=== PATIENT | male | born 1950 ===

== ENCOUNTER 2016-12-16 11:17 | Outpatient (CLI) | payer MEDICARE | END 2016-12-16 11:18 | disposition home or self-care (01) | DX: G47.33 Obstructive sleep apnea (adult) (pediatric) (principal) | CPT/HCPCS: 99203; G0463 ==

== ENCOUNTER 2017-12-01 10:49 | Outpatient (CLI) | payer MEDICARE | END 2017-12-01 10:50 | disposition home or self-care (01) | LOC: SC 10:49 | PROVIDERS: ATTEND Nurse Practitioner Family | DX: G47.33 Obstructive sleep apnea (adult) (pediatric) (principal) | CPT/HCPCS: 99213; G0463; 99212 ==

== ENCOUNTER 2018-05-17 22:20 | Inpatient (IN) | payer MEDICARE ==
[2018-05-17] MEDS ORDERED: SODIUM CHLORIDE 0.9% 1,000 ML IV ONE (22:26)
[2018-05-17] MEDS ORDERED: ONDANSETRON 4 MG/2 ML VIAL IVP STA (22:26)
[2018-05-17] MEDS ORDERED: MORPHINE 10 MG/ML VIAL IVP STA (22:35)
[2018-05-17] MEDS ORDERED: ACETAMINOPHEN 1,000 MG/100 ML 100 ML IV STA (22:35)
--- NOTE | 2018-05-17 22:35 | ED Physician Documentation ---
PD HPI ABD PAIN - Stated complaint Stated Complaint: RT ABDOMINAL PX - Chief complaint Chief Complaint: Abd Pain - History obtained from History obtained from: Patient - History of Present Illness Timing - onset: Other (Just prior to arrival) Timing - details: Abrupt onset Severity Comments: Severe Quality: Cramping, Sharp Location: RUQ Radiation: Right shoulder. No: Chest, , Lower back, Left flank, Left shoulder Improved by: No: Eating, Laying still, Vomiting, BM, Position Worsened by: No: Eating, Moving, Breathing, Position Associated symptoms: Nausea. No: Fever Similar symptoms before: Other (The patient has a history of an obstructed gallstone which required sphincterotomy and the pain he is experiencing today is similar to that episode.) Recently seen: Not recently seen PD PAST MEDICAL HISTORY - Present Medications Home Medications: Ambulatory Orders Medication Instructions Recorded Confirmed Citalopram [CeleXA] 40 mg PO DAILY 05/17/18 05/17/18 Omeprazole [PriLOSEC] 20 mg PO DAILY 05/17/18 05/17/18 traZODone [Desyrel] 100 mg PO DAILY PM 05/17/18 05/17/18 - Allergies Allergies/Adverse Reactions: Allergies Allergy/AdvReac Type Severity Reaction Status Date / Time No Known Drug Allergies Allergy Verified 05/17/18 22:28 PD ED PE NORMAL - General General: Alert and oriented X 3, No acute distress - HEENT HEENT: Atraumatic, PERRL, EOMI, Ears normal, Moist mucous membranes - Cardiac Cardiac: RRR, Strong equal pulses - Respiratory Respiratory: No respiratory distress, Clear bilaterally - Abdomen Abdomen: Soft, Non distended. No: Non tender (The patient has right upper quadrant tenderness, no rebound or peritoneal signs) - Back Back: No CVA TTP - Derm Derm: Normal color - Extremities Extremities: No deformity, No edema - Neuro Neuro: Alert and oriented X 3, Normal speech - Psych Psych: Normal affect Results - Vitals Vitals: Vital Signs - 24 hr 05/17/18 05/17/18 22:24 23:46 Temperature 37 C Heart Rate 76 77 Respiratory 20 18 Rate Blood Pressure 150/84 H 121/70 O2 Saturation 97 98 Oxygen O2 Source Room air - Labs Labs: Laboratory Tests 05/17/18 05/17/18 05/17/18 22:30 22:30 23:08 WBC 8.6 RBC 4.30 L Hgb 15.0 Hct 41.6 L MCV 96.8 H MCH 34.9 H MCHC 36.1 H RDW 13.0 Plt Count 169 MPV 6.9 L Neut # (Auto) 6.3 Lymph # (Auto) 1.4 L Kidder # (Auto) 0.8 Eos # (Auto) 0.2 Baso # (Auto) 0.0 Absolute Nucleated RBC 0.00 Nucleated RBC % 0.0 Sodium 137 Potassium 4.0 Chloride 103 Carbon Dioxide 24 Anion Gap 10.0 BUN 11 Creatinine 0.9 Estimated GFR (MDRD) 83 L Glucose 135 H Calcium 9.7 Total Bilirubin 0.9 AST 19 ALT 17 Alkaline Phosphatase 78 Total Protein 7.7 Albumin 4.6 Globulin 3.1 Albumin/Globulin Ratio 1.5 Lipase 38 Urine Color YELLOW Urine Clarity CLEAR Urine pH 6.0 Ur Specific Lovely 1.025 Urine Protein NEGATIVE Urine Glucose (UA) NEGATIVE Urine Ketones NEGATIVE Urine Occult Blood MODERATE H Urine Nitrite NEGATIVE Urine Bilirubin NEGATIVE Urine Urobilinogen 0.2 (NORMAL) Ur Leukocyte Esterase NEGATIVE Urine RBC 0-5 Urine WBC 0-3 Ur Squamous Epith Cells NONE SEEN Urine Bacteria None Seen Ur Microscopic Review INDICATED Urine Culture Comments NOT INDICATED - Rads (name of study) CT abd/pelvis Radiology: Final report received (IMPRESSION: 1. Distended gallbladder with possible inflammatory changes. No calcified gallstones are seen but cholecystitis is not excluded. 2. Pneumobilia which could reflect prior intervention such as sphincterotomy. 3. Fatty liver. 4. Appendix appears normal. ) PD MEDICAL DECISION MAKING - ED course ED course: The case is discussed with the on-call general surgeon Dr. Gooden, the patient's clinical presentation, past history and CT findings were discussed. He agrees this sounds like acute cholecystitis and recommends admission to the hospital. The case was discussed with the hospitalist Dr. Pennington who accepts the patient onto her service. The findings and plan were discussed with the patient understands and agrees to plan - Sepsis Event Vital Signs: Vital Signs - 24 hr 05/17/18 05/17/18 22:24 23:46 Temperature 37 C Heart Rate 76 77 Respiratory 20 18 Rate Blood Pressure 150/84 H 121/70 O2 Saturation 97 98 Oxygen O2 Source Room air Departure - Departure Disposition: ED Place in Observation Clinical Impression: Acute cholecystitis, Acute abdominal pain Condition: Fair
[2018-05-17 22:48] LABS: BASOPHILS % (AUTO) 0.5 %; EOSINOPHILS # (AUTO) 0.2 10^3/uL (0.0-0.7); EOSINOPHILS % (AUTO) 1.8 %; LYMPHOCYTES # (AUTO) 1.4 10^3/uL (1.5-3.5); MEAN CORPUSCULAR HEMOGLOBIN 34.9 pg (27.0-31.0); MEAN CORPUSCULAR HGB CONC 36.1 g/dL (32.0-36.0); MEAN CORPUSCULAR VOLUME 96.8 fL (80.0-94.0); MEAN PLATELET VOLUME 6.9 fL (7.4-11.4); MONOCYTES # (AUTO) 0.8 10^3/uL (0.0-1.0); MONOCYTES % (AUTO) 8.8 %; NEUTROPHILS # (AUTO) 6.3 10^3/uL (1.5-6.6); NEUTROPHILS % (AUTO) 72.9 %; PLT - PLATELET COUNT 169 10^3/uL (130-450); WHITE BLOOD COUNT 8.6 x10^3/uL (4.8-10.8)
[2018-05-17 22:59] LABS: ALBUMIN 4.6 g/dL (3.2-5.5); ALBUMIN/GLOBULIN RATIO 1.5 (1.0-2.2); BILIRUBIN,TOTAL 0.9 mg/dL (0.2-1.0); CALCIUM 9.7 mg/dL (8.5-10.3); CREATININE 0.9 mg/dL (0.6-1.2); TOTAL PROTEIN 7.7 g/dL (6.7-8.2)
[2018-05-17 23:14] LABS: BILIRUBIN,URINE NEGATIVE (NEGATIVE); GLUCOSE, URINE (UA) NEGATIVE (NEGATIVE); KETONES,URINE (UA) NEGATIVE (NEGATIVE); LEUKOCYTE ESTERASE, URINE NEGATIVE (NEGATIVE); NITRITE,URINE NEGATIVE (NEGATIVE); OCCULT BLOOD,URINE MODERATE (NEGATIVE); PROTEIN,URINE NEGATIVE (NEGATIVE); UROBILINOGEN,URINE 0.2 (NORMAL) E.U./dL (NORMAL)
[2018-05-17 23:26] LABS: CLARITY,URINE CLEAR (CLEAR); RBC,URINE 0-5 /HPF (0-5)
[2018-05-17 23:27] LABS: BACTERIA,URINE None Seen /HPF (None Seen); SQUAMOUS EPITHELIAL CELL,UR NONE SEEN (<= Few)
[2018-05-17] MEDS ORDERED: HYDROmorphone 1 MG/ML CARPUJECT IVP STA (23:38)
[2018-05-17] MEDS ORDERED: KETOROLAC 60 MG/2 ML VIAL IVP STA (23:47)
[2018-05-18] MEDS ORDERED: IOPAMIDOL-300 100 ML VIAL ONE (00:08)
[2018-05-18] MEDS ORDERED: IOPAMIDOL-300 100 ML VIAL IVP ONE (00:41)
--- NOTE | 2018-05-18 01:07 | CT Report ---
Reason: r sided abdominal pain Procedure Date: 05/18/2018 Accession Number: [id number] / [id number] Procedure: CT - Abdomen/Pelvis W/ CPT Code: FULL RESULT: EXAM: CT ABDOMEN AND PELVIS EXAM DATE: 05/18/2018 12:53 AM. CLINICAL HISTORY: R sided abdominal pain. COMPARISONS: None. TECHNIQUE: Routine helical CT imaging was performed through the abdomen and pelvis. IV contrast: ISOVUE 300 100mL. Enteric contrast: No. Reconstructions: Coronal and sagittal. In accordance with CT protocol optimization, one or more of the following dose reduction techniques were utilized for this exam: automated exposure control, adjustment of mA and/or KV based on patient size, or use of iterative reconstructive technique. FINDINGS: Lung Bases: No focal consolidation seen. Small hiatal hernia. Liver: Fatty infiltration. Gallbladder/Bile Ducts: Distended gallbladder with possible inflammatory changes. No calcified gallstones are seen. Pneumobilia is noted. Spleen: Normal. Pancreas: Normal. Adrenal Glands: Normal. Kidneys: Normal. No masses or hydronephrosis. Peritoneal Cavity/Bowel: No bowel obstruction seen. Colonic diverticula without evidence of diverticulitis. No free air or free fluid. Moderate stool in the right hemicolon. Umbilical hernia containing fat. No lymphadenopathy seen. Appendix appears normal. Pelvic Organs: Normal. The bladder and visualized pelvic organs are within normal limits. Vasculature: Mild atherosclerosis. No aortic aneurysm. Bones: Osteopenia. Grade 1 degenerative spondylolisthesis at L4-L5. Other: None. IMPRESSION: 1. Distended gallbladder with possible inflammatory changes. No calcified gallstones are seen but cholecystitis is not excluded. 2. Pneumobilia which could reflect prior intervention such as sphincterotomy. 3. Fatty liver. 4. Appendix appears normal. 5. Moderate stool in the right hemicolon. RADIA
[2018-05-18] MEDS ORDERED: PIPERACILLIN/TAZOBACTAM 4.5 GM in SODIUM CHLORIDE 0.9% MINIBAG 100 ML IV STA (01:16)
[2018-05-18] MEDS ORDERED: SODIUM CHLORIDE FLUSH 0.9% 10 ML SYRINGE IVP PRN ×2 (01:31→14:43)
[2018-05-18] MEDS ORDERED: ONDANSETRON 4 MG/2 ML VIAL IVP PRN (01:31)
[2018-05-18] MEDS ORDERED: PROCHLORPERAZINE 10 MG/2 ML VIAL IVP PRN (01:31)
--- NOTE | 2018-05-18 01:56 | HISTORY & PHYSICAL EXAMINATION ---
Chief Complaint - Chief Complaint Chief Complaint: right upper quadrant pain History of Present Illness - Admitted From Admitted From:: Home/ER - History Obtained From Records Reviewed: [facility] History obtained from: patient and Dr. Parekh Exam Limitations: none - History of Present Illness HPI Comment/Other: 68-year-old white male who has a previous history of common bile duct stone which required a sphincterotomy. He had his first episode of probable cholelithiasis pain in January 2013 when he presented to [facility] with an abrupt onset of waking up in 4 AM with pain underneath his right rib cage. But it also felt like someone grabbed his heart in the left lower pectoral area. He had 2 episodes of that. He was admitted as chest pain, rule out FL at that time. He then presented with 2 weeks of intermittent epigastric and right upper quadrant pain in March 2014. He was seen in [facility] emergency room April 18, 2014 and admitted with abnormal liver function studies and an ultras ound showing fluid-filled gallbladder. No stones. He had an MRCP which showed a stone in his distal common bile duct. He underwent an ERCP with sphincterotomy. There is no fever, no elevated white cell count. [facility] Unclear as to why he did not have a follow-up cholecystectomy. He does not ever remember them mentioning it. He was not told to follow-up to have his gallbladder taken out.Today, he had an abrupt onset of severe right upper quadrant pain. Colicky. Radiating to the right shoulder. Associated with some nausea and a little bit of swelling but no emesis. No change in bowel habits. There has been no change in the color of his stool. He denies chest pain, palpitations, left shoulder pain. He says the pain today is very similar to what he had before. In the emergency room he has had a CAT scan done which shows a small hiatal hernia, continued fatty infiltration of his liver, a distended gallbladder with possible inflammatory changes but no calcified stones. Pneumobilia is noted. Colonic diverticuli seen without evidence of diverticulitis. Moderate stool in the right hemicolon. An umbilical hernia containing fat without incarceration. Appendix appears normal. His liver function studies are normal. His white cell count is normal. He does not have a fever. The emergency room physician contacted general surgery. General surgery would like the patient admitted to our service. History - Past Medical History Cardiovascular: reports: Hypertension (At times with his screening exams. Systolic will go from 140-150.), High cholesterol Respiratory: reports: None, Sleep apnea (On CPAP) Neuro: reports: None Endocrine/Autoimmune: reports: None GI: reports: GERD, Hiatal hernia, Colon polyps (Adenoma on colonoscopy 2008), Cirrhosis (Fatty liver is seen on CAT scan March [address]), Cholelithiasis, Other (Internal hemorrhoids And diverticulosis on colonoscopy March 17, 2015. Periumbilical fat hernia seen on CT 2013 and today) : reports: Other (For prostate cancer had a radical prostatectomy approximately 2003. He has had 2 episodes of hematuria with rigors in the past.) HEENT: reports: Chronic vision loss Psych: reports: Depression (Since approximately 1984 for which she is dependent on trazodone and citalopram. He has been asked to come off of the trazodone but he feels like he cannot sleep without it.) Musculoskeletal: reports: Osteoarthritis Derm: reports: None MRSA Hx?: No Other Past Medical History: Sclerotic lesion right iliac wing, 1 cm, seen in CT March 2014 - Past Surgical History General: reports: Colonoscopy, EGD, Other - Family & Social History Family History Comment/Other: father at age 82, old age. Mother at age 90 high cholesterol and high blood pressure. 2 sisters are alive and well. 2 brothers alive and well with high cholesterol, high blood pressure and diabetes. One child healthy Living arrangement: At home Living Situation: With spouse/s.o. Social History Notes: From [place]. 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 Quit 25 years ago. He smoked 1 pack per day. He walks every day, 60-90 minutes a day. He is . Has no history of alcohol abuse and rarely drinks. 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 - Substance History Use: Uses substance without health or social issues: NONE Abuse: Recurrent use of substance despite neg consequences: NONE Dependence: Experiences withdrawal or developed tolerances: NONE - POLST Patient has POLST: Yes POLST Status: DNR Meds/Allgy - Home Medications Home Medications: Ambulatory Orders Medication Instructions Recorded Confirmed Citalopram [CeleXA] 40 mg PO DAILY 05/17/18 05/17/18 Omeprazole [PriLOSEC] 20 mg PO DAILY 05/17/18 05/17/18 traZODone [Desyrel] 100 mg PO DAILY PM 05/17/18 05/17/18 - Allergies Allergies/Adverse Reactions: Allergies Allergy/AdvReac Type Severity Reaction Status Date / Time No Known Drug Allergies Allergy Verified 05/17/18 22:28 Review of Systems - Constitutional Constitutional: denies: Fatigue, Fever, Chills, Malaise - Eyes Eyes: reports: Corrective lenses. denies: Pain, Irritation, Amaurosis, Blurred vision, Field loss, Vision loss - Ears, Nose & Throat Ears, Nose & Throat: denies: Ear pain, Hearing loss, Hearing aids, Nasal congestion, Postnasal drainage, Sore throat, Hoarseness - Cardiovascular Cariovascular: denies: Irregular heart rate, Palpitations, Chest pain, Edema, Lightheadedness, Syncope, Exertional dyspnea, Decr. exercise tolerance - Respiratory Respiratory: reports: Snoring, Apnea. denies: Cough, Sputum production, Wheezing, Hemoptysis, Orthopnea, SOB at rest, SOB with exertion, Stridor, Pleuritic pain, Other - Gastrointestinal Gastrointestinal: reports: Abdominal pain, Abdominal distention, Nausea, Reflux/heartburn. denies: Constipation, Diarrhea, Change in bowel habits, Rectal bleeding, Black stools, Bloody stools, Vomiting, Bile emesis, Riley blood emesis, Coffee grounds emesis - Genitourinary Genitourinary: denies: Dysuria, Frequency, Urgency, Hematuria, Incontinence - Musculoskeletal Musculoskeletal: reports: Back pain (Occasional mild lumbar pain unchanged for years), Stiffness (In his hands in the morning). denies: Muscle pain, Muscle aches, Muscle weakness, Gout - Integumentary Integumentary: denies: Rash, Pruritis, Lesions, Dryness - Neurological Neurological: denies: Focal weakness, Headache, Dizziness, Memory problems, Pre- existing deficit, Seizures - Psychiatric Psychiatric: reports: Depression. denies: Anxiety, Suicidal, Delusions, Hallucinations - Endocrine Endocrine: denies: Polyuria, Polydypsia, Polyphagia - Hematologic/Lymphatic Hematologic/Lymphatic: denies: Anemia, Bruising Exam - Vital Signs Reviewed Vital Signs: Yes Vital Signs: Vital Signs x48h Temp Pulse Resp BP Pulse Ox 05/17/18 23:46 77 18 121/70 98 05/17/18 22:24 37 C 76 20 150/84 H 97 - Physical Exam General Appearance: positive: Alert, Mild distress (With facial expressions showing grimacing of pain from right upper quadrant pain that comes and goes), Other (Asleep in the gurney in room 6 in the ER but awakens easily. No family at the bedside.) Eyes Bilateral: positive: PERRL, EOMI ENT: positive: Pharynx nml, No signs of dehydration Neck: positive: No JVD. negative: Stiff neck, Carotid bruit Respiratory: positive: Chest non-tender. negative: Wheezes, Rales, Rhonchi Cardiovascular: positive: Regular rate & rhythm. negative: Systolic murmur, Gallop/S4, Friction rub Peripheral Pulses: positive: 1+ Abdomen: positive: Other (Tender epigastrium and right upper quadrant. Mild guarding but no rebound. Quiet bowel sounds. No distention.) Skin: positive: No rash, Warm, Dry Extremities: positive: Non-tender, Full ROM Neurologic/Psychiatric: positive: Oriented x3, CN's nml (2-12), Motor nml, Sensation nml Conclusion/Plan - Problem List (1) Right upper quadrant abdominal pain Conclusion/Plan: Abrupt in onset, associated with the patient already has a previous history of a common bile duct stone, ERCP and sphincterotomy. This was in 2013. It is unclear why he did not have his gallbladder taken out then. He now returns with recurrent right upper quadrant pain. He does not have a fever, nor does have an elevated white cell count. CAT scan is suggestive of possible acute cholecystitis because of inflammation but no stones are seen. General surgery would like him admitted to our service and he will be seen in the morning. Plan: Place in observation General surgery consult to see patient in the morning N.p.o. status Morphine for pain management Monitor closely for fever. If that occurs he will be started on single agent antibiotic therapy for possible acute cholecystitis (2) Preoperative cardiovascular examination Conclusion/Plan: With his age and male sex he has up to a 12.5% risk of cardiac disease manifestation in the next 10 years. But nevertheless he does not have atrial fibrillation, FL in the last 6 months, valvular heart disease. His creatinine is less than 2. Although he has hyperglycemia he is not on insulin. He does not have a history of a TIA or stroke. No history of congestive heart failure. No history of ischemic heart disease. If he has surgery it would be considered a high risk intraperitoneal surgery. That leaves him with one-point on the revised cardiac index. Class II risk. 0.9% risk of major cardiac event. (3) Insomnia secondary to depression with anxiety Conclusion/Plan: Patient will be allowed his medications with sips of water. Otherwise to be n.p.o. (4) Hyperglycemia Conclusion/Plan: With his admission to [facility] in 2013 hyperglycemia was also noted during that visit. Glucose is 135 then as well. But he does not carry a formal diagnosis of diabetes mellitus. Plan: Check A1c (5) Obstructive sleep apnea on CPAP Conclusion/Plan: Asked to bring CPAP mask in from home - Lab Results Fish Bones: 05/17/18 22:30 05/17/18 22:30 - Diagnostic Imaging Results Diagnostic Imaging Results: positive: Final report reviewed Diagnostic Imaging Results Comments: CT ABDOMEN AND PELVIS EXAM DATE: 05/18/2018 12:53 AM. CLINICAL HISTORY: R sided abdominal pain. COMPARISONS: None. TECHNIQUE: Routine helical CT imaging was performed through the abdomen and pelvis. IV contrast: ISOVUE 300 100mL. Enteric contrast: No. Reconstructions: Coronal and sagittal. In accordance with CT protocol optimization, one or more of the following dose reduction techniques were utilized for this exam: automated exposure control, adjustment of mA and/or KV based on patient size, or use of iterative reconstructive technique. FINDINGS: Lung Bases: No focal consolidation seen. Small hiatal hernia. Liver: Fatty infiltration. Gallbladder/Bile Ducts: Distended gallbladder with possible inflammatory changes. No calcified gallstones are seen. Pneumobilia is noted. Spleen: Normal. Pancreas: Normal. Adrenal Glands: Normal. Kidneys: Normal. No masses or hydronephrosis. Peritoneal Cavity/Bowel: No bowel obstruction seen. Colonic diverticula without evidence of diverticulitis. No free air or free fluid. Moderate stool in the right hemicolon. Umbilical hernia containing fat. No lymphadenopathy seen. Appendix appears normal. Pelvic Organs: Normal. The bladder and visualized pelvic organs are within normal limits. Vasculature: Mild atherosclerosis. No aortic aneurysm. Bones: Osteopenia. Grade 1 degenerative spondylolisthesis at L4-L5. Other: None. IMPRESSION: 1. Distended gallbladder with possible inflammatory changes. No calcified gallstones are seen but cholecystitis is not excluded. 2. Pneumobilia which could reflect prior intervention such as sphincterotomy. 3. Fatty liver. 4. Appendix appears normal. 5. Moderate stool in the right hemicolon. Core Measures - Anticipated LOS I expect patient to be DC'd or transferred within 96 hours.: Yes - DVT/VTE - Prophylaxis VTE/DVT Device ordered at admit?: Yes
[2018-05-18] MEDS: SODIUM CHLORIDE FLUSH 0.9% 10 ML SYRINGE IVP SCH ×5 (03:14→23:50)
[2018-05-18] MEDS: SODIUM CHLORIDE 0.9% 1,000 ML IV SCH ×3 (03:14→19:39)
--- NOTE | 2018-05-18 04:23 | Ultrasound Report ---
Reason: abormal ct, ruq pain, hx of gallstoes Procedure Date: 05/18/2018 Accession Number: [id number] / [id number] Procedure: US - Abdomen Complete CPT Code: FULL RESULT: EXAM: ABDOMEN ULTRASOUND EXAM DATE: 05/18/2018 03:23 AM. CLINICAL HISTORY: Right sided pain. Abnormal gallbladder on CT. COMPARISON: CT, 05/18/2018. TECHNIQUE: Real-time scanning was performed with static images obtained. FINDINGS: Liver: Echogenic and heterogeneous. 14.9 cm. Main portal vein flow: Hepatopetal. Gallbladder: Sludge in the gallbladder. There is wall thickening at 6 mm. No definite gallstones are visualized. Gallbladder appears dilated. Biliary System: Common bile duct not well seen. Pancreas: Not well seen due to bowel gas. Kidneys: Right: 9.8 cm longitudinally. Normal. No contour-deforming mass, stones, or hydronephrosis. Left: 9.9 cm longitudinally. Normal. No contour-deforming mass, stones, or hydronephrosis. Spleen: 10.0 cm. Coarse echotexture. Aorta and Inferior Vena Cava: The visualized portions are unremarkable. Other: None. IMPRESSION: 1. Dilated gallbladder with sludge and wall thickening. 2. No shadowing gallstones are identified. No focal tenderness over the gallbladder. Findings are somewhat equivocal with regard to cholecystitis. 3. Fatty liver. 4. Common duct not well seen. RADIA
[2018-05-18] MEDS: HYDROmorphone 1 MG/ML CARPUJECT IVP PRN ×3 (05:18→09:39)
[2018-05-18 05:34] LABS: BASOPHILS % (AUTO) 0.6 %; EOSINOPHILS # (AUTO) 0.2 10^3/uL (0.0-0.7); EOSINOPHILS % (AUTO) 2.5 %; HGB - HEMOGLOBIN 14.7 g/dL (14.0-18.0); LYMPHOCYTES # (AUTO) 1.3 10^3/uL (1.5-3.5); MEAN CORPUSCULAR HEMOGLOBIN 34.1 pg (27.0-31.0); MEAN CORPUSCULAR HGB CONC 34.4 g/dL (32.0-36.0); MEAN CORPUSCULAR VOLUME 99.2 fL (80.0-94.0); MEAN PLATELET VOLUME 6.9 fL (7.4-11.4); MONOCYTES # (AUTO) 0.8 10^3/uL (0.0-1.0); MONOCYTES % (AUTO) 12.4 %; NEUTROPHILS # (AUTO) 4.3 10^3/uL (1.5-6.6); NEUTROPHILS % (AUTO) 65.5 %; PLT - PLATELET COUNT 156 10^3/uL (130-450); RED BLOOD COUNT 4.29 10^6/uL (4.70-6.10); WHITE BLOOD COUNT 6.6 x10^3/uL (4.8-10.8)
[2018-05-18 05:49] LABS: ALBUMIN/GLOBULIN RATIO 1.3 (1.0-2.2); BILIRUBIN,TOTAL 1.1 mg/dL (0.2-1.0); CALCIUM 9.1 mg/dL (8.5-10.3); CREATININE 0.9 mg/dL (0.6-1.2); HB2 TOTAL 15.8 g/dL; HEMOGLOBIN A1C 0.67 g/dL
[2018-05-18] MEDS ORDERED: ACETAMINOPHEN 325 MG TABLET PO PRN (08:08)
[2018-05-18] MEDS: ACETAMINOPHEN 1,000 MG/100 ML 100 ML IV PRN ×2 (08:51→20:55)
[2018-05-18] MEDS: POLYETHYLENE GLYCOL 3350 17 GM PACKET PO SCH (08:58)
--- NOTE | 2018-05-18 10:35 | ANESTHESIA ---
Pre-Anesthesia VS, & Labs - Diagnosis cholecystitis - Procedure laparascopic cholecystectomy Vital Signs: Temp Pulse Resp BP Pulse Ox 38.2 C H 82 18 111/59 L 91 L 05/18/18 09:44 05/18/18 09:44 05/18/18 09:44 05/18/18 09:44 05/18/18 09:44 Height 5 ft 9 in Weight (kg) 81.5 kg Body Mass Index 26.5 - NPO >8 hours - Lab Results Current Lab Results: Laboratory Tests 05/18/18 05:20: Glycated Hemoglobin 6.0, Estim Average Glucose 126 H 05/18/18 05:20: Sodium 142, Potassium 4.3, Chloride 107, Carbon Dioxide 28, Anion Gap 7.0, BUN 10, Creatinine 0.9, Estimated GFR (MDRD) 83 L, Glucose 137 H, Calcium 9.1, Total Bilirubin 1.1 H, AST 18, ALT 15, Alkaline Phosphatase 68, Total Protein 7.0, Albumin 4.0, Globulin 3.0, Albumin/Globulin Ratio 1.3 05/18/18 05:20: WBC 6.6, RBC 4.29 L, Hgb 14.7, Hct 42.6, MCV 99.2 H, MCH 34.1 H, MCHC 34.4, RDW 13.0, Plt Count 156, MPV 6.9 L, Neut # (Auto) 4.3, Lymph # (Auto) 1.3 L, [place] # (Auto) 0.8, Eos # (Auto) 0.2, Baso # (Auto) 0.0, Absolute Nucleated RBC 0.00, Nucleated RBC % 0.1 05/17/18 22:30: Sodium 137, Potassium 4.0, Chloride 103, Carbon Dioxide 24, Anion Gap 10.0, BUN 11, Creatinine 0.9, Estimated GFR (MDRD) 83 L, Glucose 135 H , Calcium 9.7, Total Bilirubin 0.9, AST 19, ALT 17, Alkaline Phosphatase 78, Total Protein 7.7, Albumin 4.6, Globulin 3.1, Albumin/Globulin Ratio 1.5, Lipase 38 05/17/18 22:30: WBC 8.6, RBC 4.30 L, Hgb 15.0, Hct 41.6 L, MCV 96.8 H, MCH 34.9 H, MCHC 36.1 H, RDW 13.0, Plt Count 169, MPV 6.9 L, Neut # (Auto) 6.3, Lymph # (Auto) 1.4 L, Rab[place] # (Auto) 0.8, Eos # (Auto) 0.2, Baso # (Auto) 0.0, Absolute Nucleated RBC 0.00, Nucleated RBC % 0.0 Lab results reviewed: Yes Fish Bones: 05/18/18 05:20 05/18/18 05:20 Home Medications and Allergies Home Medications: Ambulatory Orders Medication Instructions Recorded Confirmed Citalopram [CeleXA] 40 mg PO DAILY 05/17/18 05/18/18 Omeprazole [PriLOSEC] 20 mg PO DAILY 05/17/18 05/18/18 traZODone [Desyrel] 100 mg PO DAILY PM 05/17/18 05/18/18 Multivitamin [Theragran] 1 tab PO DAILY 05/18/18 05/18/18 Active Medications Hydromorphone HCl (Dilaudid Inj Carp) 1 mg IVP Q2HR PRN PRN Reason: Pain 8 to 10 Last Admin: 05/18/18 09:39 Dose: 1 mg Sodium Chloride (Normal Saline 0.9%) 1,000 mls @ 100 mls/hr IV .Q10H [facility] Last Infusion: 05/18/18 07:28 Dose: 100 mls/hr Acetaminophen (Ofirmev) 100 mls @ 400 mls/hr IV Q6HR PRN PRN Reason: PAIN Last Infusion: 05/18/18 09:07 Dose: Infused Ondansetron HCl (Zofran Inj) 4 mg IVP Q6HR PRN PRN Reason: Nausea / Vomiting Last Admin: 05/18/18 05:18 Dose: 4 mg Oxycodone HCl (Roxicodone) 5 mg PO Q4HR PRN PRN Reason: PAIN Polyethylene Glycol (Miralax) 17 gm PO DAILY [facility] Last Admin: 05/18/18 08:58 Dose: Not Given Prochlorperazine Edisylate (Compazine Inj) 10 mg IVP Q6HR PRN PRN Reason: Nausea / Vomiting Last Admin: 05/18/18 07:56 Dose: 10 mg Sodium Chloride (Normal Saline Flush 0.9%) 10 ml IVP PRN PRN PRN Reason: NEEDED PER PROVIDER ORDERS Sodium Chloride (Normal Saline Flush 0.9%) 10 ml IVP 0100,0900,1700 [facility] Last Admin: 05/18/18 03:14 Dose: 10 ml Citalopram [CeleXA] 40 mg PO DAILY 05/17/18 Omeprazole [PriLOSEC] 20 mg PO DAILY 05/17/18 traZODone [Desyrel] 100 mg PO DAILY PM 05/17/18 Allergies/Adverse Reactions: Allergies Allergy/AdvReac Type Severity Reaction Status Date / Time No Known Drug Allergies Allergy Verified 05/17/18 22:28 Anes History & Medical History - Anesthetic History Anesthesia Complications: reports: No previous complications Family history of Anesthesia Complications: Denies Family history of Malignant Hyperthermia: Denies - Medical History Cardiovascular: reports: Hypertension Pulmonary: reports: None, Sleep apnea Gastrointestinal: reports: GERD, Cholelithiasis Urinary: reports: Other Neuro: reports: None Musculoskeletal: reports: Osteoarthritis Endocrine/Autoimmune: reports: None Blood Disorders: reports: None Skin: reports: None Smoking Status: Former smoker Other Past Medical History: Sclerotic lesion right iliac wing, 1 cm, seen in CT March 2014 - Surgical History General: Colonoscopy, EGD, Other Urologic: Prostatic surgery Exam General: Alert, Oriented x3 Dental: Partials Lower Mouth Openin Fingerbreadth Neck Mobility: Normal Mallampati classification: II Thyromental Distance: greater than 6 cm Respiratory: Lungs clear, Normal breath sounds, No respiratory distress, No accessory muscle use Cardiovascular: Regular rate, Normal S1, Normal S2, No murmurs Mental/Cognitive Status: Alert/Oriented X3, Normal for patient Cognitive Status: Within normal limits Plan Anesthesia Type: General Consent for Procedure(s) Verified and Reviewed: No Code Status: Attempt Resuscitation ASA classification: 2-Mild systemic disease Is this case an emergency?: No
[2018-05-18] MEDS ORDERED: BUPIVACAINE 0.5% PF 30 ML VIAL ONE (11:08)
[2018-05-18] MEDS: PIPERACILLIN/TAZOBACTAM 3.375 GM in SODIUM CHLORIDE 0.9% MINIBAG 100 ML IV SCH ×3 (11:21→23:47)
[2018-05-18] MEDS: oxyCODONE 5 MG TABLET PO PRN (11:22)
--- NOTE | 2018-05-18 11:39 | PROVIDER PROGRESS NOTE ---
Subjective - Prog Note Date Prog Note Date: 05/18/18 - Subjective Pt reports feeling: No change Subjective: pt still report upper right quadrant pain, pt also has lower degree of fever as well. Pt denies chest pain, SOB. Current Medications - Current Medications Current Medications: Active Medications Hydromorphone HCl (Dilaudid Inj Carp) 1 mg IVP Q2HR PRN PRN Reason: Pain 8 to 10 Last Admin: 05/18/18 09:39 Dose: 1 mg Sodium Chloride (Normal Saline 0.9%) 1,000 mls @ 100 mls/hr IV .Q10H [facility] Last Infusion: 05/18/18 07:28 Dose: 100 mls/hr Acetaminophen (Ofirmev) 100 mls @ 400 mls/hr IV Q6HR PRN PRN Reason: PAIN Last Infusion: 05/18/18 09:07 Dose: Infused Piperacillin Sod/Tazobactam (Sod 3.375 gm/ Sodium Chloride) 100 mls @ 200 mls/hr IV Q6H [facility] Last Admin: 05/18/18 11:21 Dose: 200 mls/hr Ondansetron HCl (Zofran Inj) 4 mg IVP Q6HR PRN PRN Reason: Nausea / Vomiting Last Admin: 05/18/18 05:18 Dose: 4 mg Oxycodone HCl (Roxicodone) 5 mg PO Q4HR PRN PRN Reason: PAIN Last Admin: 05/18/18 11:22 Dose: 5 mg Polyethylene Glycol (Miralax) 17 gm PO DAILY [facility] Last Admin: 05/18/18 08:58 Dose: Not Given Prochlorperazine Edisylate (Compazine Inj) 10 mg IVP Q6HR PRN PRN Reason: Nausea / Vomiting Last Admin: 05/18/18 07:56 Dose: 10 mg Sodium Chloride (Normal Saline Flush 0.9%) 10 ml IVP PRN PRN PRN Reason: NEEDED PER PROVIDER ORDERS Sodium Chloride (Normal Saline Flush 0.9%) 10 ml IVP 0100,0900,1700 [facility] Last Admin: 05/18/18 03:14 Dose: 10 ml Citalopram [CeleXA] 40 mg PO DAILY 05/17/18 Omeprazole [PriLOSEC] 20 mg PO DAILY 05/17/18 traZODone [Desyrel] 100 mg PO DAILY PM 05/17/18 Multivitamin [Theragran] 1 tab PO DAILY 05/18/18 Objective - Vital Signs/Intake & Output Reviewed Vital Signs: Yes Vital Signs: Vital Signs x48h Temp Pulse Resp BP Pulse Ox 05/18/18 09:44 38.2 C H 82 18 111/59 L 91 L 05/18/18 08:00 37.1 C 86 18 128/72 94 Intake & Output: Intake & Output 05/15/18 05/16/18 05/17/18 05/18/18 23:59 23:59 23:59 23:59 Intake Total 1000 623.333 Balance 1000 623.333 - Objective General Appearance: positive: No acute distress, Alert. negative: Lethargic Eyes Bilateral: positive: Normal inspection, PERRL, No lid inflammation, Conjunctivae nml ENT: positive: ENT inspection nml, Pharynx nml, No signs of dehydration. negative: Purulent nasal drainage, Pharyngeal erythema, Oral lesions Neck: positive: Nml inspection, Thyroid nml, No JVD, Trachea midline. negative: Thyromegaly, Lymphadenopathy (R), Lymphadenopathy (L), Stiff neck, Swelling/bruising, Tracheal deviation Respiratory: positive: Chest non-tender, No respiratory distress, Breath sounds nml. negative: Wheezes, Rales, Rhonchi Cardiovascular: positive: Regular rate & rhythm, No murmur, No gallop. negative: Irregularly irregular, Extrasystoles, Tachycardia, Bradycardia, JVD present, Systolic murmur, Diastolic murmur Peripheral Pulses: 2+ Radial (R), 2+ Radial (L), 2+ Dorsalis pedis (R), 2+ Dorsalis pedis (L) Abdomen: positive: No organomegaly, Nml bowel sounds, No distention, Tenderness. negative: Guarding, Rebound Back: positive: Nml inspection. negative: CVA tenderness (R), CVA tenderness (L) Skin: positive: Color nml, No rash, Warm, Dry. negative: Cyanosis, Diaphoresis, Pallor Extremities: positive: Non-tender, Full ROM, Nml appearance. negative: Calf tenderness, Joint swelling, Bharti's sign/cords Neurologic/Psychiatric: positive: Oriented x3, Motor nml, Sensation nml, Mood/affect nml. negative: Weakness, Sensory loss, Facial droop, Slurred/abnml speech, Depressed mood/affect - Lab Results Fish Bones: 05/18/18 05:20 05/18/18 05:20 Other Labs: Lab Results x24hrs 05/18/18 05/18/18 05/18/18 Range/Units 05:20 05:20 05:20 WBC 6.6 (4.8-10.8) x10^3/uL RBC 4.29 L (4.70-6.10) 10^6/uL Hgb 14.7 (14.0-18.0) g/dL Hct 42.6 (42.0-52.0) % MCV 99.2 H (80.0-94.0) fL MCH 34.1 H (27.0-31.0) pg MCHC 34.4 (32.0-36.0) g/dL RDW 13.0 (12.0-15.0) % Plt Count 156 (130-450) 10^3/uL MPV 6.9 L (7.4-11.4) fL Neut # (Auto) 4.3 (1.5-6.6) 10^3/uL Lymph # (Auto) 1.3 L (1.5-3.5) 10^3/uL [place] # (Auto) 0.8 (0.0-1.0) 10^3/uL Eos # (Auto) 0.2 (0.0-0.7) 10^3/uL Baso # (Auto) 0.0 (0.0-0.1) 10^3/uL Absolute Nucleated RBC 0.00 x10^3/uL Nucleated RBC % 0.1 /100WBC Sodium 142 (135-145) mmol/L Potassium 4.3 (3.5-5.0) mmol/L Chloride 107 (101-111) mmol/L Carbon Dioxide 28 (21-32) mmol/L Anion Gap 7.0 (6-13) BUN 10 (6-20) mg/dL Creatinine 0.9 (0.6-1.2) mg/dL Estimated GFR (MDRD) 83 L (>89) Glucose 137 H (70-100) mg/dL Glycated Hemoglobin 6.0 (4.6-6.2) % Estim Average Glucose 126 H (70-100) Calcium 9.1 (8.5-10.3) mg/dL Total Bilirubin 1.1 H (0.2-1.0) mg/dL AST 18 (10-42) IU/L ALT 15 (10-60) IU/L Alkaline Phosphatase 68 (42-121) IU/L Total Protein 7.0 (6.7-8.2) g/dL Albumin 4.0 (3.2-5.5) g/dL Globulin 3.0 (2.1-4.2) g/dL Albumin/Globulin Ratio 1.3 (1.0-2.2) Lipase (22-51) U/L Urine Color Urine Clarity (CLEAR) Urine pH (5.0-7.5) PH Ur Specific [place] (1.002-1.030) Urine Protein (NEGATIVE) mg/dL Urine Glucose (UA) (NEGATIVE) mg/dL Urine Ketones (NEGATIVE) mg/dL Urine Occult Blood (NEGATIVE) Urine Nitrite (NEGATIVE) Urine Bilirubin (NEGATIVE) Urine Urobilinogen (NORMAL) E.U./dL Ur Leukocyte Esterase (NEGATIVE) Urine RBC (0-5) /HPF Urine WBC (0-3) /HPF Ur Squamous Epith Cells (<= Few) Urine Bacteria (None Seen) /HPF Ur Microscopic Review Urine Culture Comments 05/17/18 05/17/18 05/17/18 Range/Units 23:08 22:30 22:30 WBC 8.6 (4.8-10.8) x10^3/uL RBC 4.30 L (4.70-6.10) 10^6/uL Hgb 15.0 (14.0-18.0) g/dL Hct 41.6 L (42.0-52.0) % MCV 96.8 H (80.0-94.0) fL MCH 34.9 H (27.0-31.0) pg MCHC 36.1 H (32.0-36.0) g/dL RDW 13.0 (12.0-15.0) % Plt Count 169 (130-450) 10^3/uL MPV 6.9 L (7.4-11.4) fL Neut # (Auto) 6.3 (1.5-6.6) 10^3/uL Lymph # (Auto) 1.4 L (1.5-3.5) 10^3/uL [place] # (Auto) 0.8 (0.0-1.0) 10^3/uL Eos # (Auto) 0.2 (0.0-0.7) 10^3/uL Baso # (Auto) 0.0 (0.0-0.1) 10^3/uL Absolute Nucleated RBC 0.00 x10^3/uL Nucleated RBC % 0.0 /100WBC Sodium 137 (135-145) mmol/L Potassium 4.0 (3.5-5.0) mmol/L Chloride 103 (101-111) mmol/L Carbon Dioxide 24 (21-32) mmol/L Anion Gap 10.0 (6-13) BUN 11 (6-20) mg/dL Creatinine 0.9 (0.6-1.2) mg/dL Estimated GFR (MDRD) 83 L (>89) Glucose 135 H (70-100) mg/dL Glycated Hemoglobin (4.6-6.2) % Estim Average Glucose (70-100) Calcium 9.7 (8.5-10.3) mg/dL Total Bilirubin 0.9 (0.2-1.0) mg/dL AST 19 (10-42) IU/L ALT 17 (10-60) IU/L Alkaline Phosphatase 78 (42-121) IU/L Total Protein 7.7 (6.7-8.2) g/dL Albumin 4.6 (3.2-5.5) g/dL Globulin 3.1 (2.1-4.2) g/dL Albumin/Globulin Ratio 1.5 (1.0-2.2) Lipase 38 (22-51) U/L Urine Color YELLOW Urine Clarity CLEAR (CLEAR) Urine pH 6.0 (5.0-7.5) PH Ur Specific [place] 1.025 (1.002-1.030) Urine Protein NEGATIVE (NEGATIVE) mg/dL Urine Glucose (UA) NEGATIVE (NEGATIVE) mg/dL Urine Ketones NEGATIVE (NEGATIVE) mg/dL Urine Occult Blood MODERATE H (NEGATIVE) Urine Nitrite NEGATIVE (NEGATIVE) Urine Bilirubin NEGATIVE (NEGATIVE) Urine Urobilinogen 0.2 (NORMAL) (NORMAL) E.U./dL Ur Leukocyte Esterase NEGATIVE (NEGATIVE) Urine RBC 0-5 (0-5) /HPF Urine WBC 0-3 (0-3) /HPF Ur Squamous Epith Cells NONE SEEN (<= Few) Urine Bacteria None Seen (None Seen) /HPF Ur Microscopic Review INDICATED Urine Culture Comments NOT INDICATED ABX Reporting Has patient been on IV antibiotics over the past 48 hours?: Yes Assessment/Plan - Problem List (1) Right upper quadrant abdominal pain Impression: Conclusion/Plan: 05/18, pt still complains of upper right quadrant pain, consult with surgeon, follow up continue pain control, NPO, IVF of NS Abrupt in onset, associated with the patient already has a previous history of a common bile duct stone, ERCP and sphincterotomy. This was in 2013. It is unclear why he did not have his gallbladder taken out then. He now returns with recurrent right upper quadrant pain. He does not have a fever, nor does have an elevated white cell count. CAT scan is suggestive of possible acute cholecystitis because of inflammation but no stones are seen. General surgery would like him admitted to our service and he will be seen in the morning. Plan: Place in observation General surgery consult to see patient in the morning N.p.o. status Morphine for pain management Monitor closely for fever. If that occurs he will be started on single agent antibiotic therapy for possible acute cholecystitis (2) Preoperative cardiovascular examination Conclusion/Plan: With his age and male sex he has up to a 12.5% risk of cardiac disease manifestation in the next 10 years. But nevertheless he does not have atrial f ibrillation, CA in the last 6 months, valvular heart disease. His creatinine is less than 2. Although he has hyperglycemia he is not on insulin. He does not have a history of a TIA or stroke. No history of congestive heart failure. No history of ischemic heart disease. If he has surgery it would be considered a high risk intraperitoneal surgery. That leaves him with one-point on the revised cardiac index. Class II risk. 0.9% risk of major cardiac event. (3) Insomnia secondary to depression with anxiety Conclusion/Plan: Patient will be allowed his medications with sips of water. Otherwise to be n.p.o. (4) Hyperglycemia Conclusion/Plan: 05/18, A1C is 6, pt is NPO, ACHS With his admission to [facility] in 2013 hyperglycemia was also noted during that visit. Glucose is 135 then as well. But he does not carry a formal diagnosis of diabetes mellitus. Plan: Check A1c (5) Obstructive sleep apnea on CPAP Conclusion/Plan: Asked to bring CPAP mask in from home (6) fever pt has mild fever at 38.3. WBC is normal now check lactic acid add Zosyn IVF of NS blood culture, follow up
[2018-05-18] MEDS ORDERED: LACTATED RINGERS 1,000 ML IV ONE ×2 (12:34→14:00)
--- NOTE | 2018-05-18 12:43 | CONSULTATION NOTE ---
Referring Provider Name of Referring Provider:: Dr. Bustamante Consult Date: 05/18/18 Chief Complaint - Chief Complaint Chief Complaint: abd pain History of Present Illness - Admitted From Admitted From:: ER - History Obtained From Records Reviewed: yes History obtained from: pt, records Exam Limitations: none - History of Present Illness HPI Comment/Other: 68 yo male with onset of severe nonradiating RUQ pain yesterday evening, associated with N/V of bilious material, without associated fever/chills, jaundice, acholic stools, change in bowel habits, difficulty with urination, recent wt changes, unusual oral intake or prior similar sx. No hx food intoler ance or FFI. Hx GERD with heartburn sx well controlled with PPI therapy. Hx ERCP with sphincterotomy for choledocholiathiasis at [facility] in [place] in 2013. Apparently never was told he should have his gallbladder removed. Neg FH gallbladder disease or CRC. Had favorable colonoscopy approximately 5 yrs ago. Pain has persisted through the night without improvement, and he noted pain is exacerbated by deep breaths. His evaluation in the ER included a CT scan of the abd/pelvis showing a dilated gallbladder with thickening of his gallbladder wall and pneumatobilia but no stones, nl caliber bile ducts, fatty liver, and no other significant abnormalities. And abd US confirmed thickened gb wall, sludge but no stones, dilated gallbladder, poorly visualized bile ducts, neg sonographic Sibley's sign. LFTs, lipase and CBC all nl. Surgical consultation was requested. History - Past Medical History Cardiovascular: reports: Hypertension Respiratory: reports: None, Sleep apnea Neuro: reports: None Endocrine/Autoimmune: reports: None GI: reports: GERD, Cholelithiasis : reports: Other (radical prostatectomy for prostate cancer) HEENT: reports: Chronic vision loss Psych: reports: Depression Musculoskeletal: reports: Osteoarthritis Derm: reports: None MRSA Hx?: No Other Past Medical History: Sclerotic lesion right iliac wing, 1 cm, seen in CT March 2014 - Past Surgical History General: reports: Colonoscopy, EGD, Other /[employer]: reports: Other (radical prostatectomy) - Family & Social History Family History Comment/Other: father at age 82, old age. Mother at age 90 high cholesterol and high blood pressure. 2 sisters are alive and well. 2 brothers alive and well with high cholesterol, high blood pressure and diabetes. One child healthy. Neg for GI tumors Living arrangement: At home Living Situation: With spouse/s.o. Social History Notes: From [place]. 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 [place] moved [place] to be a full-time grandpa and be close to his grandkids.Former smoker of 15-18 pack years. Quit 25 years ago. He smoked 1 pack per day. He walks every day, 60-90 minutes a day. He is . Has no history of alcohol abuse and rarely drinks. 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 - Substance History Use: Uses substance without health or social issues: NONE Abuse: Recurrent use of substance despite neg consequences: NONE Dependence: Experiences withdrawal or developed tolerances: NONE - POLST Patient has POLST: Yes POLST Status: DNR Meds/Allgy - Home Medications Home Medications: Ambulatory Orders Medication Instructions Recorded Confirmed Citalopram [CeleXA] 40 mg PO DAILY 05/17/18 05/18/18 Omeprazole [PriLOSEC] 20 mg PO DAILY 05/17/18 05/18/18 traZODone [Desyrel] 100 mg PO DAILY PM 05/17/18 05/18/18 Multivitamin [Theragran] 1 tab PO DAILY 05/18/18 05/18/18 - Allergies Allergies/Adverse Reactions: Allergies Allergy/AdvReac Type Severity Reaction Status Date / Time No Known Drug Allergies Allergy Verified 05/17/18 22:28 Review of Systems - Constitutional Constitutional: denies: Fever, Weight gain, Weight loss - Gastrointestinal Gastrointestinal: reports: Abdominal pain, Nausea, Vomiting, Reflux/heartburn. denies: Constipation, Diarrhea, Change in bowel habits, Rectal bleeding, Black stools, Bloody stools, Riley blood emesis, Coffee grounds emesis - Genitourinary Genitourinary: reports: Incontinence (s/p radical prostatectomy) - Hematologic/Lymphatic Hematologic/Lymphatic: denies: Blood clots, Bleeding tendencies - All Other Systems All Other Systems: reports: Reviewed and negative Exam - Vital Signs Reviewed Vital Signs: Yes Vital Signs: Vital Signs x48h Temp Pulse Resp BP Pulse Ox 05/18/18 09:44 38.2 C H 82 18 111/59 L 91 L 05/18/18 08:00 37.1 C 86 18 128/72 94 - Physical Exam General Appearance: positive: Severe distress Eyes Bilateral: positive: Conjunctivae nml, No scleral icterus ENT: positive: ENT inspection nml, No signs of dehydration Neck: positive: Nml inspection, No JVD. negative: Lymphadenopathy (R), Lymphadenopathy (L) Respiratory: positive: Chest non-tender, No respiratory distress, Breath sounds nml. negative: Wheezes, Rales, Rhonchi Cardiovascular: positive: Regular rate & rhythm, No murmur, No gallop Peripheral Pulses: positive: 2+ Abdomen: positive: Nml bowel sounds, Tenderness (RUQ peritoneal signs; +Sibley's sign; gb non palbable), Guarding, Rebound. negative: Hepatomegaly, Splenomegaly, Mass Skin: positive: Color nml, Warm, Dry Extremities: positive: No pedal edema. negative: Calf tenderness Neurologic/Psychiatric: positive: Oriented x3 Conclusion/Plan - Diagnosis Diagnosis: Acute cholecystitis - Plan Plan: Laparoscopic cholecystectomy. PAR conf with pt and . - Lab Results Lab results reviewed: Yes Fish Bones: 05/18/18 05:20 05/18/18 05:20 Other Lab Results: LFT's, lipase, UA neg - Diagnostic Imaging Results Diagnostic Imaging Results: positive: Final report reviewed, Read independently Diagnostic Imaging Results Comments: See HPI
[2018-05-18] MEDS ORDERED: BUPIVACAINE 0.5% PF 30 ML VIAL INFIL ONE ×2 (13:01)
[2018-05-18] MEDS ORDERED: BUPIVACAINE 0.5%-EPI 1:200000 PF 30 ML VIAL SUBQ ONE (13:01)
--- NOTE | 2018-05-18 14:42 | OPERATIVE REPORT ---
Operative Report - General Admit Date: 05/18/18 Procedure Date: 05/18/18 Planned Procedure: laparoscopic cholecystectomy Pre-Op Diagnosis: acute cholecystitis Procedure Performed: Laparoscopic cholecystectomy Post Op Diagnosis: acute calculous cholecystitis with empyema of the gallbladder - Procedure Note Primary Surgeon: Idris Gooden MD Secondary Surgeon: none Anesthesia Provider: Jackie Craven CRNA Anesthesia Technique: General ET tube Pathology: gallbladder and contents Estimated Blood Loss (mL): 25 Drain/Tube Type: Power drain (in liver bed) Complications: none
[2018-05-18] MEDS ORDERED: ROCURONIUM 50 MG/5 ML VIAL IVP ONE (14:47)
[2018-05-18] MEDS ORDERED: KETOROLAC 30 MG/ML VIAL IVP ONE (14:47)
[2018-05-18] MEDS ORDERED: ONDANSETRON 4 MG/2 ML VIAL IVP ONE (14:47)
[2018-05-18] MEDS ORDERED: PROPOFOL 200 MG/20 ML VIAL IVP ONE (14:47)
[2018-05-18] MEDS ORDERED: fentaNYL 250 MCG/5 ML VIAL IVP ONE (14:47)
[2018-05-18] MEDS ORDERED: ACETAMINOPHEN 1,000 MG/100 ML 100 ML IV ONE (14:47)
[2018-05-18] MEDS: PANTOPRAZOLE 40 MG VIAL IVP SCH (18:17)
--- NOTE | 2018-05-18 20:17 | OPERATIVE REPORT ---
DATE OF SERVICE: 05/18/2018 Physician: Idris Gooden MD PREOPERATIVE DIAGNOSIS: Acute cholecystitis. POSTOPERATIVE DIAGNOSIS: Acute calculous cholecystitis with empyema of the gallbladder. PROCEDURE PERFORMED: Laparoscopic cholecystectomy. ANESTHESIA: General endotracheal by Nj Craven CRNA. SURGEON: Idris Gooden MD ESTIMATED BLOOD LOSS: 25 mL COMPLICATIONS: None. FINDINGS: An acutely distended, markedly inflamed, thick-walled gallbladder was present with extensive pericholecystic adhesions and marked edema of the cystic triangle of Calot. The visualized portion of the liver and the remainder of the small and large bowel appeared normal. Cystic duct was of normal caliber. Common duct was visualized and thought to be possibly mildly dilated. Following resection, the gallbladder was seen to have a hemorrhagic mucosal surface and contain a solitary 10 mm, oval-shaped, brown, mixed cholesterol-type stone. The gallbladder was also seen to contain white bile and purulent material. Samples of which were sent for aerobic and anaerobic culture. INDICATIONS FOR PROCEDURE: The patient is a 68-year-old gentleman with a 24- hour history of abrupt onset of severe right upper quadrant pain, nausea and vomiting, associated right upper quadrant peritoneal signs, normal laboratory tests, and ultrasound and CT findings showing a thick-walled gallbladder with no stones evident. He is status post remote ERCP and biliary sphincterotomy for choledocholithiasis. He was advised to undergo laparoscopic cholecystectomy for definitive surgical treatment and was thought to be acute cholecystitis with or without stones. TECHNIQUE: After informed consent, the patient was taken to the operating room and was placed under general endotracheal anesthesia. Preoperative preparation included application of sequential calf compression boots and previous therapeutic administration of Zosyn intravenously. His abdomen was prepared with ChloraPrep solution and draped in the usual sterile fashion. A transverse incision was made along inferior to the umbilicus and carried down through the layers of the abdominal wall until the peritoneum was identified and entered sharply. A 10 mm Elma cannula was inserted. Pneumoperitoneum achieved with carbon dioxide. A 10 mm 38-degree Adrian telescope was inserted and laparoscopy carried out. Findings were as noted above. Three additional ports were placed in the right upper quadrant. The patient was placed in steep reverse Trendelenburg position and rotated towards the left. Instruments were passed. The gallbladder was exposed by using sharp and blunt dissection to dissect the omentum that was adherent to the gallbladder free. The gallbladder was then able to be exposed. It was aspirated of approximately 30 mL of white bile. Samples of which were sent for culture, aerobic and anaerobic. The gallbladder was then able to be grasped and retracted in the cephalad and lateral direction. The cystic triangle of Calot was exposed with blunt dissection and sharp dissection using electrocautery. Eventually, the cystic triangle was able to be exposed where the cystic duct and artery and common duct were all well visualized. The cystic duct was triply clipped distally, doubly proximally and divided between. The cystic artery was doubly clipped proximally and distally and divided between. The gallbladder was dissected from the liver bed with difficulty due to marked inflammation friability. Gallbladder lumen was entered on several occasions and purulent bile was aspirated as it escaped. The gallbladder was eventually able to be detached completely from the liver bed, placed in an organ retrieval bag, extracted opened on a side table with findings noted above and the tissue then sent for pathologic evaluation. After hemostasis was assured, the right upper quadrant was copiously irrigated with saline solution, following which a #19 Power round drain was placed into the peritoneal cavity into the liver bed and Morison's pouch, and made to exit the right upper quadrant lateral port site. It was connected to bulb suction and secured with 2-0 nylon suture. Instruments and cannulas were removed under direct vision. Pneumoperitoneum was allowed to escape. Incisions were closed in layers using continuous 0 Vicryl to reapproximate the midline fascia at the umbilicus, followed by 4-0 Monocryl subcuticular skin closure and Dermabond for the remaining port sites. Anesthesia was terminated, and patient was transferred to the recovery room in satisfactory condition. Sponge and needle counts correct x2. A single #19 Power drain was used. TD: 05/18/2018 15:05 ADIN
[2018-05-18] MEDS: traZODone 50 MG TABLET PO SCH (20:51)
[2018-05-18] MEDS: KETOROLAC 15 MG/ML VIAL IVP PRN (21:02)
[2018-05-19] MEDS: oxyCODONE 5 MG TABLET PO PRN ×3 (05:21→16:16)
[2018-05-19 05:33] LABS: BASOPHILS % (AUTO) 0.5 %; EOSINOPHILS # (AUTO) 0.1 10^3/uL (0.0-0.7); EOSINOPHILS % (AUTO) 1.9 %; HGB - HEMOGLOBIN 12.9 g/dL (14.0-18.0); LYMPHOCYTES # (AUTO) 1.1 10^3/uL (1.5-3.5); LYMPHOCYTES % (AUTO) 19.9 %; MEAN CORPUSCULAR HEMOGLOBIN 34.5 pg (27.0-31.0); MEAN CORPUSCULAR HGB CONC 34.5 g/dL (32.0-36.0); MEAN CORPUSCULAR VOLUME 99.9 fL (80.0-94.0); MEAN PLATELET VOLUME 6.9 fL (7.4-11.4); MONOCYTES # (AUTO) 0.8 10^3/uL (0.0-1.0); MONOCYTES % (AUTO) 13.9 %; NEUTROPHILS # (AUTO) 3.7 10^3/uL (1.5-6.6); NEUTROPHILS % (AUTO) 63.8 %; PLT - PLATELET COUNT 128 10^3/uL (130-450); RED BLOOD COUNT 3.75 10^6/uL (4.70-6.10); RED CELL DISTRIBUTION WIDTH 12.8 % (12.0-15.0); WHITE BLOOD COUNT 5.7 x10^3/uL (4.8-10.8)
[2018-05-19 05:45] LABS: ALBUMIN 3.1 g/dL (3.2-5.5); ALBUMIN/GLOBULIN RATIO 1.2 (1.0-2.2); BILIRUBIN,TOTAL 0.9 mg/dL (0.2-1.0); CALCIUM 8.1 mg/dL (8.5-10.3); TOTAL PROTEIN 5.6 g/dL (6.7-8.2)
[2018-05-19] MEDS: SODIUM CHLORIDE 0.9% 1,000 ML IV SCH (05:45)
[2018-05-19] MEDS: PIPERACILLIN/TAZOBACTAM 3.375 GM in SODIUM CHLORIDE 0.9% MINIBAG 100 ML IV SCH ×4 (05:46→23:43)
[2018-05-19] MEDS: PANTOPRAZOLE 40 MG VIAL IVP SCH (06:38)
[2018-05-19] MEDS: CITALOPRAM 10 MG TABLET PO SCH (08:21)
[2018-05-19] MEDS: SODIUM CHLORIDE FLUSH 0.9% 10 ML SYRINGE IVP SCH ×4 (08:21→23:44)
[2018-05-19] MEDS: MULTIVITAMIN TABLET PO SCH (08:21)
[2018-05-19] MEDS: ENOXAPARIN 40 MG/0.4 ML SYRINGE SUBQ SCH (08:21)
[2018-05-19] MEDS: KETOROLAC 15 MG/ML VIAL IVP PRN (08:26)
[2018-05-19] MEDS: POLYETHYLENE GLYCOL 3350 17 GM PACKET PO SCH (08:37)
[2018-05-19] MEDS ORDERED: IBUPROFEN 600 MG TABLET PO PRN (08:57)
--- NOTE | 2018-05-19 09:02 | PROVIDER PROGRESS NOTE ---
Subjective - General Admit Date: 05/18/18 Procedure Date: 05/18/18 Post Op Days: 1 Procedure Performed: lap cholecystectomy - Review of Systems Wound/Incisions: positive: Healing well Drain Type: mary kate Drain Output Description: serosanguinous Approximate mls Output: 40 yesterday General: positive: No symptoms Pulmonary: positive: No symptoms Cardiovascular: positive: No symptoms Gastrointestinal: positive: Abdominal pain (incisional; markedly improved compared to preop), Flatus, Diarrhea Genitourinary: positive: No symptoms Psychiatric: positive: No symptoms - Other Other Information/Narrative: Feels much better; no n/v, voiding well, tolerating clear liquids well. Objective - Patient Data Reviewed Vital Signs: Yes Vital Signs: Vital Signs x48h Temp Pulse Resp BP Pulse Ox 05/19/18 04:25 37.4 C 76 16 114/57 L 94 Weight: Weight 05/17/18 05/18/18 05/19/18 23:59 23:59 23:59 Weight (kg) 81.647 kg 81.5 kg Intake & Output: Intake and Output Totals x24h 05/17/18 05/18/18 05/19/18 23:59 23:59 23:59 Intake Total 1000 3055.000 945 Output Total 1715 720 Balance 1000 1340.000 225 - Lab Results Lab Results: 05/19/18 04:59 05/19/18 04:59 Other Lab Results: Lab Results x24hrs 05/19/18 05/19/18 05/18/18 Range/Units 04:59 04:59 12:05 WBC 5.7 (4.8-10.8) x10^3/uL RBC 3.75 L (4.70-6.10) 10^6/uL Hgb 12.9 L (14.0-18.0) g/dL Hct 37.5 L (42.0-52.0) % MCV 99.9 H (80.0-94.0) fL MCH 34.5 H (27.0-31.0) pg MCHC 34.5 (32.0-36.0) g/dL RDW 12.8 (12.0-15.0) % Plt Count 128 L (130-450) 10^3/uL MPV 6.9 L (7.4-11.4) fL Neut # (Auto) 3.7 (1.5-6.6) 10^3/uL Lymph # (Auto) 1.1 L (1.5-3.5) 10^3/uL [place] # (Auto) 0.8 (0.0-1.0) 10^3/uL Eos # (Auto) 0.1 (0.0-0.7) 10^3/uL Baso # (Auto) 0.0 (0.0-0.1) 10^3/uL Absolute Nucleated RBC 0.00 x10^3/uL Nucleated RBC % 0.0 /100WBC Sodium 142 (135-145) mmol/L Potassium 3.8 (3.5-5.0) mmol/L Chloride 107 (101-111) mmol/L Carbon Dioxide 29 (21-32) mmol/L Anion Gap 6.0 (6-13) BUN 11 (6-20) mg/dL Creatinine 1.0 (0.6-1.2) mg/dL Estimated GFR (MDRD) 74 L (>89) Glucose 116 H (70-100) mg/dL POC Whole Bld Glucose 114 H (70 - 100) mg/dL Calcium 8.1 L (8.5-10.3) mg/dL Magnesium 2.0 (1.7-2.8) mg/dL Total Bilirubin 0.9 (0.2-1.0) mg/dL AST 23 (10-42) IU/L ALT 24 (10-60) IU/L Alkaline Phosphatase 48 (42-121) IU/L Total Protein 5.6 L (6.7-8.2) g/dL Albumin 3.1 L (3.2-5.5) g/dL Globulin 2.5 (2.1-4.2) g/dL Albumin/Globulin Ratio 1.2 (1.0-2.2) gm stain of gallbladder contents: WBC, GPR; C&S: E. coli so far - Current Medications Current Medications: Current Medications Generic Name Dose Route Start Last Admin Trade Name Freq PRN Reason Stop Dose Admin Citalopram Hydrobromide 40 mg 05/19/18 09:00 05/19/18 08:21 Celexa PO 40 mg DAILY ELSIE Administration Enoxaparin Sodium 40 mg 05/19/18 09:00 05/19/18 08:21 Lovenox SUBQ 40 mg DAILY ELSIE Administration Piperacillin Sod/Tazobactam 100 mls @ 200 mls/hr 05/18/18 12:00 05/19/18 07:39 Sod 3.375 gm/ Sodium Chloride IV Infused Q6H ELSIE Infusion Multivitamins 1 tab 05/19/18 09:00 05/19/18 08:21 Theragran PO 1 tab DAILY ELSIE Administration Ondansetron HCl 4 mg 05/18/18 01:31 05/18/18 05:18 Zofran Inj IVP 4 mg Q6HR PRN Administration Nausea / Vomiting Oxycodone HCl 5 mg 05/18/18 08:09 05/19/18 05:21 Roxicodone PO 5 mg Q4HR PRN Administration PAIN Prochlorperazine Edisylate 10 mg 05/18/18 01:31 05/18/18 07:56 Compazine Inj IVP 10 mg Q6HR PRN Administration Nausea / Vomiting Sodium Chloride 10 ml 05/18/18 09:00 05/19/18 08:21 Normal Saline Flush 0.9% IVP Not Given 0100,0900,1700 ELSIE Sodium Chloride 10 ml 05/18/18 17:00 05/19/18 08:21 Normal Saline Flush 0.9% IVP Not Given 0100,0900,1700 ELSIE Trazodone HCl 100 mg 05/18/18 21:00 05/18/18 20:51 Desyrel PO 100 mg QPM ELSIE Administration - Physical Exam Wound/Incisions: positive: Healing well General Appearance: positive: No acute distress, Alert, Mild distress Eyes Bilateral: positive: No scleral icterus ENT: positive: ENT inspection nml, Pharynx nml Neck: positive: No JVD Respiratory: positive: Chest non-tender, No respiratory distress, Breath sounds nml Cardiovascular: positive: Regular rate & rhythm, No murmur, No gallop Abdomen: positive: Nml bowel sounds, Tenderness (minmal incisional tenderness). negative: Guarding, Rebound, Hepatomegaly, Splenomegaly, Mass Extremities: positive: No pedal edema. negative: Calf tenderness Neurologic/Psychiatric: positive: Oriented x3 ABX Reporting Has patient been on IV antibiotics over the past 48 hours?: Yes Impression/Plan - Problem List Problem List: Doing well PO Day 1 s/p lap jose for empyema of the gallbladder; rec: advance diet and activity as lian; po meds except continue IV antibiotics another 24 hours; home tomorrow if continues to improve.
[2018-05-19] MEDS: PANTOPRAZOLE 40 MG TABLET PO SCH (09:54)
--- NOTE | 2018-05-19 14:41 | PROVIDER PROGRESS NOTE ---
Subjective - Prog Note Date Prog Note Date: 05/19/18 Prog Note Time: 14:40 - Subjective Pt reports feeling: Improved Subjective: Willis notes a drastic improvement in his overall condition as compared to when he first came into the hospital. He complains of abdominal pain, but had just been up to the bathroom. He denies any new symptoms such as headache, shortness of breath, vomiting or a new cough. Current Medications - Current Medications Current Medications: Active Medications Acetaminophen (Tylenol) 650 mg PO Q6H PRN PRN Reason: Pain or Fever > 38C (100.4F) Citalopram Hydrobromide (Celexa) 40 mg PO DAILY [facility] Last Admin: 05/19/18 08:21 Dose: 40 mg Enoxaparin Sodium (Lovenox) 40 mg SUBQ DAILY [facility] Last Admin: 05/19/18 08:21 Dose: 40 mg Piperacillin Sod/Tazobactam (Sod 3.375 gm/ Sodium Chloride) 100 mls @ 200 mls/h r IV Q6H [facility] Last Infusion: 05/19/18 12:53 Dose: Infused Ibuprofen (Motrin) 600 mg PO Q6HR PRN PRN Reason: PAIN Multivitamins (Theragran) 1 tab PO DAILY [facility] Last Admin: 05/19/18 08:21 Dose: 1 tab Ondansetron HCl (Zofran Inj) 4 mg IVP Q6HR PRN PRN Reason: Nausea / Vomiting Last Admin: 05/18/18 05:18 Dose: 4 mg Oxycodone HCl (Roxicodone) 5 mg PO Q4HR PRN PRN Reason: PAIN Last Admin: 05/19/18 16:16 Dose: 5 mg Pantoprazole Sodium (Protonix) 40 mg PO QDAC [facility] Last Admin: 05/19/18 09:54 Dose: 40 mg Prochlorperazine Edisylate (Compazine Inj) 10 mg IVP Q6HR PRN PRN Reason: Nausea / Vomiting Last Admin: 05/18/18 07:56 Dose: 10 mg Saccharomyces Boulardii (Florastor) 500 mg PO BIDWM [facility] Sodium Chloride (Normal Saline Flush 0.9%) 10 ml IVP 0100,0900,1700 [facility] Last Admin: 05/19/18 08:21 Dose: Not Given Sodium Chloride (Normal Saline Flush 0.9%) 10 ml IVP PRN PRN PRN Reason: NEEDED PER PROVIDER ORDERS Trazodone HCl (Desyrel) 100 mg PO QPM ELSIE Last Admin: 05/18/18 20:51 Dose: 100 mg Citalopram [CeleXA] 40 mg PO DAILY 05/17/18 Omeprazole [PriLOSEC] 20 mg PO DAILY 05/17/18 traZODone [Desyrel] 100 mg PO DAILY PM 05/17/18 Multivitamin [Theragran] 1 tab PO DAILY 05/18/18 Objective - Vital Signs/Intake & Output Reviewed Vital Signs: Yes Vital Signs: Vital Signs x48h Temp Pulse Resp BP Pulse Ox 05/19/18 13:05 36.9 C 80 19 93/57 L 94 05/19/18 09:00 37.1 C 79 19 99/58 L 92 Intake & Output: Intake & Output 05/16/18 05/17/18 05/18/18 05/19/18 23:59 23:59 23:59 23:59 Intake Total 1000 3055.000 2795 Output Total 1715 1250 Balance 1000 5602.312 4826 - Objective General Appearance: positive: Alert, Moderate distress, Anxious Eyes Bilateral: positive: Normal inspection ENT: positive: ENT inspection nml, Pharynx nml, No signs of dehydration Neck: positive: Nml inspection, No JVD Respiratory: positive: Chest non-tender, No respiratory distress, Breath sounds nml Cardiovascular: positive: Regular rate & rhythm, No murmur, No gallop Peripheral Pulses: 1+ Radial (R), 1+ Radial (L) Abdomen: positive: Tenderness, Guarding, Abnml bowel sounds, Other (+GARTH drain- CDI, post op lap jose) Back: positive: Nml inspection Skin: positive: Color nml, No rash, Warm, Dry Extremities: positive: Non-tender, Full ROM, Nml appearance, No pedal edema Neurologic/Psychiatric: positive: Oriented x3, CN's nml (2-12), Motor nml, Sensation nml, Mood/affect nml Reflexes: Bicep (R): 3+, Bicep (L): 3+ - Lab Results Fish Bones: 05/19/18 04:59 05/19/18 04:59 Other Labs: Lab Results x24hrs 05/19/18 05/19/18 Range/Units 04:59 04:59 WBC 5.7 (4.8-10.8) x10^3/uL RBC 3.75 L (4.70-6.10) 10^6/uL Hgb 12.9 L (14.0-18.0) g/dL Hct 37.5 L (42.0-52.0) % MCV 99.9 H (80.0-94.0) fL MCH 34.5 H (27.0-31.0) pg MCHC 34.5 (32.0-36.0) g/dL RDW 12.8 (12.0-15.0) % Plt Count 128 L (130-450) 10^3/uL MPV 6.9 L (7.4-11.4) fL Neut # (Auto) 3.7 (1.5-6.6) 10^3/uL Lymph # (Auto) 1.1 L (1.5-3.5) 10^3/uL [place] # (Auto) 0.8 (0.0-1.0) 10^3/uL Eos # (Auto) 0.1 (0.0-0.7) 10^3/uL Baso # (Auto) 0.0 (0.0-0.1) 10^3/uL Absolute Nucleated RBC 0.00 x10^3/uL Nucleated RBC % 0.0 /100WBC Sodium 142 (135-145) mmol/L Potassium 3.8 (3.5-5.0) mmol/L Chloride 107 (101-111) mmol/L Carbon Dioxide 29 (21-32) mmol/L Anion Gap 6.0 (6-13) BUN 11 (6-20) mg/dL Creatinine 1.0 (0.6-1.2) mg/dL Estimated GFR (MDRD) 74 L (>89) Glucose 116 H (70-100) mg/dL Calcium 8.1 L (8.5-10.3) mg/dL Magnesium 2.0 (1.7-2.8) mg/dL Total Bilirubin 0.9 (0.2-1.0) mg/dL AST 23 (10-42) IU/L ALT 24 (10-60) IU/L Alkaline Phosphatase 48 (42-121) IU/L Total Protein 5.6 L (6.7-8.2) g/dL Albumin 3.1 L (3.2-5.5) g/dL Globulin 2.5 (2.1-4.2) g/dL Albumin/Globulin Ratio 1.2 (1.0-2.2) ABX Reporting Has patient been on IV antibiotics over the past 48 hours?: Yes Assessment/Plan - Problem List (1) Acute cholecystitis Impression: The patient is post op day #1, with yesterday being his surgery day. Samples were taken and preliminary results show +e. coli with final cultures pending. He remains on IV Zosyn and is tolerating a meal today. Surgery continues on this case and will advise for upcoming discharge. Plan: Continue IV antibiotics, control post-op pain, encourage incentive spirometer. (2) Obstructive sleep apnea on CPAP Impression: The patient admits to a history of this, but did not bring in his home unit. He claims to be compliant at home. Plan: Monitor overnight and encourage to resume home unit upon discharge. (3) Right upper quadrant abdominal pain Impression: The patient continues to have this and becomes worse with activity. Today on exam the patient complains of a 7 out of 10 pain located diffusely over his entire abdomen. He states that this is likely due to his diligent incentive spirometry use and the fact that he had just been in the bathroom doing more activities. Plan: Give oral oxycodone and monitor. 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 He does not appear anxious upon exam. His does appear anxious, but was informed by staff that this may be her personality. He is also prescribed Celexa at home, which continues here. Plan: Continue usual home meds, and monitor.
[2018-05-19] MEDS: ACETAMINOPHEN 325 MG TABLET PO PRN (17:57)
[2018-05-19] MEDS: SACCHAROMYCES BOULARDII 250 MG CAPSULE PO SCH (17:57)
[2018-05-19] MEDS: traZODone 50 MG TABLET PO SCH (21:12)
[2018-05-20] MEDS: oxyCODONE 5 MG TABLET PO PRN (02:23)
[2018-05-20 05:25] LABS: BASOPHILS % (AUTO) 0.6 %; EOSINOPHILS # (AUTO) 0.2 10^3/uL (0.0-0.7); EOSINOPHILS % (AUTO) 3.1 %; HGB - HEMOGLOBIN 12.7 g/dL (14.0-18.0); LYMPHOCYTES # (AUTO) 1.1 10^3/uL (1.5-3.5); MEAN CORPUSCULAR HEMOGLOBIN 34.8 pg (27.0-31.0); MEAN CORPUSCULAR HGB CONC 35.3 g/dL (32.0-36.0); MEAN CORPUSCULAR VOLUME 98.6 fL (80.0-94.0); MEAN PLATELET VOLUME 7.2 fL (7.4-11.4); MONOCYTES # (AUTO) 0.6 10^3/uL (0.0-1.0); MONOCYTES % (AUTO) 9.8 %; NEUTROPHILS # (AUTO) 3.8 10^3/uL (1.5-6.6); NEUTROPHILS % (AUTO) 67.5 %; PLT - PLATELET COUNT 137 10^3/uL (130-450); RED BLOOD COUNT 3.64 10^6/uL (4.70-6.10); RED CELL DISTRIBUTION WIDTH 13.2 % (12.0-15.0); WHITE BLOOD COUNT 5.6 x10^3/uL (4.8-10.8)
[2018-05-20 05:45] LABS: ALBUMIN 2.9 g/dL (3.2-5.5); BILIRUBIN,TOTAL 0.7 mg/dL (0.2-1.0); CALCIUM 8.1 mg/dL (8.5-10.3); TOTAL PROTEIN 5.8 g/dL (6.7-8.2)
[2018-05-20] MEDS: PANTOPRAZOLE 40 MG TABLET PO SCH (06:13)
[2018-05-20] MEDS: ACETAMINOPHEN 325 MG TABLET PO PRN (06:14)
[2018-05-20] MEDS: PIPERACILLIN/TAZOBACTAM 3.375 GM in SODIUM CHLORIDE 0.9% MINIBAG 100 ML IV SCH (06:14)
[2018-05-20 08:43] VITALS: BP 124/63
--- NOTE | 2018-05-20 09:06 | PROVIDER PROGRESS NOTE ---
Subjective - General Admit Date: 05/18/18 Procedure Date: 05/18/18 Post Op Days: 2 Procedure Performed: lap cholecystectomy - Review of Systems Wound/Incisions: positive: Healing well Drain Type: mary kate Drain Output Description: serosanguinous Approximate mls Output: 70 yesterday General: positive: No symptoms Pulmonary: positive: No symptoms Cardiovascular: positive: No symptoms Gastrointestinal: positive: Abdominal pain (continues to diminish; minimal at present), Flatus Genitourinary: positive: No symptoms Objective - Patient Data Reviewed Vital Signs: Yes Vital Signs: Vital Signs x48h Temp Pulse Resp BP Pulse Ox 05/20/18 08:42 36.8 C 81 18 124/63 91 L 05/20/18 04:50 37.5 C 76 18 122/62 92 Weight: Weight 05/18/18 05/19/18 05/20/18 23:59 23:59 23:59 Weight (kg) 81.5 kg Intake & Output: Intake and Output Totals x24h 05/18/18 05/19/18 05/20/18 23:59 23:59 23:59 Intake Total 3055.000 3315 550 Output Total 1715 1270 420 Balance 5513.020 2357 130 - Lab Results Lab Results: 05/20/18 05:05 05/20/18 05:05 Other Lab Results: Lab Results x24hrs 05/20/18 05/20/18 Range/Units 05:05 05:05 WBC 5.6 (4.8-10.8) x10^3/uL RBC 3.64 L (4.70-6.10) 10^6/uL Hgb 12.7 L (14.0-18.0) g/dL Hct 35.9 L (42.0-52.0) % MCV 98.6 H (80.0-94.0) fL MCH 34.8 H (27.0-31.0) pg MCHC 35.3 (32.0-36.0) g/dL RDW 13.2 (12.0-15.0) % Plt Count 137 (130-450) 10^3/uL MPV 7.2 L (7.4-11.4) fL Neut # (Auto) 3.8 (1.5-6.6) 10^3/uL Lymph # (Auto) 1.1 L (1.5-3.5) 10^3/uL [place] # (Auto) 0.6 (0.0-1.0) 10^3/uL Eos # (Auto) 0.2 (0.0-0.7) 10^3/uL Baso # (Auto) 0.0 (0.0-0.1) 10^3/uL Absolute Nucleated RBC 0.00 x10^3/uL Nucleated RBC % 0.0 /100WBC Sodium 142 (135-145) mmol/L Potassium 3.4 L (3.5-5.0) mmol/L Chloride 111 (101-111) mmol/L Carbon Dioxide 26 (21-32) mmol/L Anion Gap 5.0 L (6-13) BUN 10 (6-20) mg/dL Creatinine 1.0 (0.6-1.2) mg/dL Estimated GFR (MDRD) 74 L (>89) Glucose 112 H (70-100) mg/dL Calcium 8.1 L (8.5-10.3) mg/dL Total Bilirubin 0.7 (0.2-1.0) mg/dL AST 22 (10-42) IU/L ALT 23 (10-60) IU/L Alkaline Phosphatase 57 (42-121) IU/L Total Protein 5.8 L (6.7-8.2) g/dL Albumin 2.9 L (3.2-5.5) g/dL Globulin 2.9 (2.1-4.2) g/dL Albumin/Globulin Ratio 1.0 (1.0-2.2) Galllbaldder C&S: multi drug resistant E. coli, but S to quinolones, plus anaerobes on gram stain. - Current Medications Current Medications: Current Medications Generic Name Dose Route Start Last Admin Trade Name Freq PRN Reason Stop Dose Admin Acetaminophen 650 mg 05/19/18 08:58 05/20/18 06:14 Tylenol PO 650 mg Q6H PRN Administration Pain or Fever > 38C (100.4F) Citalopram Hydrobromide 40 mg 05/19/18 09:00 05/19/18 08:21 Celexa PO 40 mg DAILY ELSIE Administration Enoxaparin Sodium 40 mg 05/19/18 09:00 05/19/18 08:21 Lovenox SUBQ 40 mg DAILY ELSIE Administration Piperacillin Sod/Tazobactam 100 mls @ 200 mls/hr 05/18/18 12:00 05/20/18 06:56 Sod 3.375 gm/ Sodium Chloride IV Infused Q6H ELSIE Infusion Multivitamins 1 tab 05/19/18 09:00 05/19/18 08:21 Theragran PO 1 tab DAILY ELSIE Administration Ondansetron HCl 4 mg 05/18/18 01:31 05/18/18 05:18 Zofran Inj IVP 4 mg Q6HR PRN Administration Nausea / Vomiting Oxycodone HCl 5 mg 05/18/18 08:09 05/20/18 02:23 Roxicodone PO 5 mg Q4HR PRN Administration PAIN Pantoprazole Sodium 40 mg 05/19/18 09:00 05/20/18 06:13 Protonix PO 40 mg QDAC ELSIE Administration Prochlorperazine Edisylate 10 mg 05/18/18 01:31 05/18/18 07:56 Compazine Inj IVP 10 mg Q6HR PRN Administration Nausea / Vomiting Saccharomyces Boulardii 500 mg 05/19/18 17:00 05/19/18 17:57 Florastor PO 500 mg BIDWM ELSIE Administration Sodium Chloride 10 ml 05/18/18 17:00 05/19/18 23:44 Normal Saline Flush 0.9% IVP 10 ml 0100,0900,1700 ELSIE Administration Sodium Chloride 10 ml 05/18/18 14:43 05/20/18 06:14 Normal Saline Flush 0.9% IVP 10 ml PRN PRN Administration NEEDED PER PROVIDER ORDERS Trazodone HCl 100 mg 05/18/18 21:00 05/19/18 21:12 Desyrel PO 100 mg QPM ELSIE Administration - Physical Exam Wound/Incisions: positive: Healing well, Drainage (J/P drain removed; fluid serosanguinous) General Appearance: positive: No acute distress, Alert Eyes Bilateral: positive: No scleral icterus Abdomen: positive: Non-tender (incisions healing well; j/p removed.), No distention. negative: Guarding, Rebound Extremities: positive: No pedal edema. negative: Calf tenderness Neurologic/Psychiatric: positive: Oriented x3 ABX Reporting Has patient been on IV antibiotics over the past 48 hours?: Yes Impression/Plan - Problem List Problem List: acute calculous cholecystitis with empyema of the gallbladder, doing well POD # 2; Rec: ok for d/c from surgical standpt; would switch to oral cipro/flagyl for 5 days, use non narcotic analgesics, and f/u my office in 1 week.
--- NOTE | 2018-05-20 09:13 | Discharge Plan ---
Discharge Plan Disposition: 01 Home, Self Care Condition: Good Prescriptions: Ciprofloxacin HCl [Cipro] 500 mg PO BID #14 tablet Metronidazole [Flagyl] 500 mg PO BID #14 tablet Saccharomyces Boulardii [Florastor] 250 mg PO BID #60 capsule Diet: Regular Activity Restrictions: Activity as Tolerated Shower Restrictions: No Weight Bearing: Full Weight Additional Instructions or Follow Up instructions: You were admitted for right upper quadrant abdominal pain. You underwent a cholecystecomy (removal of your gallbladder), and samples were taken showing that you will need continued treatment with oral antibiotics for another week. I have sent Ciprofloxacin, Flagyl and a probiotic to your pharmacy. Try not to take the probiotic at the same moment as your antibiotics. You should follow up with general surgery outpatient next week. Please see your PCP within one week. No Smoking: If you smoke, Please STOP! Call for help. Follow-up with: Kush Ervin MD [Primary Care Provider] -
[2018-05-20] MEDS: ENOXAPARIN 40 MG/0.4 ML SYRINGE SUBQ SCH (09:21)
[2018-05-20] MEDS: SODIUM CHLORIDE FLUSH 0.9% 10 ML SYRINGE IVP SCH (09:21)
[2018-05-20] MEDS: SACCHAROMYCES BOULARDII 250 MG CAPSULE PO SCH (09:21)
[2018-05-20] MEDS: MULTIVITAMIN TABLET PO SCH (09:21)
[2018-05-20] MEDS: CITALOPRAM 10 MG TABLET PO SCH (09:21)
--- NOTE | 2018-05-20 09:32 | DISCHARGE SUMMARY ---
"Discharge Summary Admit Date: 05/18/18 Discharge Date: 05/20/18 Discharging Provider: SCOTT Oliveros Primary Care Provider: Joao Ervin Code Status: Attempt Resuscitation Condition at Discharge: Good Discharge Disposition: 01 Home, Self Care - DIAGNOSES Admission Diagnoses: Right upper quadrant pain (R10.11) Encounter for other preprocedural examination (Z01.818) Insomnia due to other mental disorder (F51.05) Hyperglycemia, unspecified (R73.9) Obstructive sleep apnea (adult) (pediatric) (G47.33) Discharge Diagnoses with Status of Each Condition: Acute cholecystitis (K81.0) new on this admit, now post op, resolved. Right upper quadrant pain (R10.11) improved, stable. Post-operative state (Z98.890) stable. 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 MODESTA on CPAP (G47.33) chronic, stable. Hyperglycemia (R73.9)chronic, stable. - HPI History of Present Illness: HPI as per Dr. Pennington: Willis Loyd is a 68-year-old white male who has a previous history of common bile duct stone which required a sphincterotomy. He had his first episode of probable cholelithiasis pain in January 2013 when he presented to [facility] with an abrupt onset of waking up in 4 AM with pain underneath his right rib cage. But it also felt like someone grabbed his heart in the left lower pectoral area. He had 2 episodes of that. He was admitted as chest pain, rule out ND at that time. He then presented with 2 weeks of intermittent epigastric and right upper quadrant pain in March 2014. He was seen in [facility] emergency room April 18, 2014 and admitted with abnormal liver function studies and an ultrasound showing fluid-filled gallbladder. No stones. He had an MRCP which showed a stone in his distal common bile duct. He underwent an ERCP with sphincterotomy. There is no fever, no elevated white cell count. He was tr ansferred to [facility] for the ERCP. Unclear as to why he did not have a follow-up cholecystectomy. He does not ever remember them mentioning it. He was not told to follow-up to have his gallbladder taken out.Today, he had an abrupt onset of severe right upper quadrant pain. Colicky. Radiating to the right shoulder. Associated with some nausea and a little bit of swelling but no emesis. No change in bowel habits. There has been no change in the color of his stool. He denies chest pain, palpitations, left shoulder pain. He says the pain today is very similar to what he had before. In the emergency room he has had a CAT scan done which shows a small hiatal her anne, continued fatty infiltration of his liver, a distended gallbladder with possible inflammatory changes but no calcified stones. Pneumobilia is noted. Colonic diverticuli seen without evidence of diverticulitis. Moderate stool in the right hemicolon. An umbilical hernia containing fat without incarceration. Appendix appears normal. LFTs and WBCs are normal and the patient is afebrile. The emergency room physician contacted general surgery. Hospitalist service to admit. - CONSULTS | PROCEDURES Consultations: General Surgery-Dr. Idris Gooden Procedures: The patient underwent a laparoscopic cholecystectomy with Dr. Idris Gooden on 05/18/18 indicated for acute cholecystitis Post Op Diagnosis: acute calculous cholecystitis with empyema of the gallbladder. Cultures were sent. - HOSPITAL COURSE Hospital Course: (1) Acute cholecystitis The patient underwent a lap jose on 05/18/18, in which he was found to have purulent material surrounding his gallbladder. Samples were taken and preliminary results show +e. coli with final cultures, with other anaerobes. He remained on IV Zosyn while in the hospital, and was transitioned to Cipro/flagyl and a probiotic to continue at home. He is to see general surgery in about one week. Prior to his discharge, the RUQ GARTH drain was removed without difficulty and he was free of pain upon exam. He was tolerating meals and this condition is stable upon discharge. (2) Obstructive sleep apnea on CPAP The patient admits to a history of this, but did not bring in his home unit. He claims to be compliant at home. (3) Right upper quadrant abdominal pain The patient continued to have abdominal discomfort that became worse with act ivity. He states that this is likely due to his diligent incentive spirometry use and the fact that he has increased his activity level. The patient refused any prescriptions for narcotics upon discharge. (4) Insomnia secondary to depression with anxiety The patient states that he has been sleeping well and is prescribed trazadone at home. He does not appear anxious upon exam. His does appear anxious, but was informed by staff that this may be her personality. He is also prescribed Celexa at home, which continues here. This condition is stable. Disposition: The patient was very anxious to return home and was medically stable. He was transported via private car home with his . Prescriptions were sent to [facility] as per patient request. - ALLERGIES Allergies/Adverse Reactions: Allergies Allergy/AdvReac Type Severity Reaction Status Date / Time No Known Drug Allergies Allergy Verified 05/17/18 22:28 - MEDICATIONS Home Medications: Ambulatory Orders Medication Instructions Recorded Confirmed Citalopram [CeleXA] 40 mg PO DAILY 05/17/18 05/18/18 Omeprazole [PriLOSEC] 20 mg PO DAILY 05/17/18 05/18/18 traZODone [Desyrel] 100 mg PO DAILY PM 05/17/18 05/18/18 Multivitamin [Theragran] 1 tab PO DAILY 05/18/18 05/18/18 Ciprofloxacin HCl [Cipro] 500 mg PO BID #14 tablet 05/20/18 Metronidazole [Flagyl] 500 mg PO BID #14 tablet 05/20/18 Saccharomyces Boulardii [Florastor] 250 mg PO BID #60 capsule 05/20/18 - PHYSICAL EXAM AT DISCHARGE General Appearance: positive: No acute distress, Alert Eyes Bilateral: positive: Normal inspection, PERRL ENT: positive: ENT inspection nml, Pharynx nml, No signs of dehydration Neck: positive: Nml inspection, Thyroid nml, No JVD, Trachea midline Respiratory: positive: Chest non-tender, No respiratory distress, Breath sounds nml Cardiovascular: positive: Regular rate & rhythm, No murmur, No gallop Peripheral Pulses: positive: 2+ Abdomen: positive: Tenderness, Guarding, Other (soft, surgical sites are CDI, open to air) Back: positive: Nml inspection Skin: positive: Color nml, No rash, Warm, Dry Extremities: positive: Non-tender, Full ROM, Nml appearance, No pedal edema Neurologic/Psychiatric: positive: Oriented x3, CN's nml (2-12), Motor nml, Sensation nml, Mood/affect nml Reflexes: Bicep (R): 3+, Bicep (L): 3+ - LABS Result Diagrams: 05/20/18 05:05 05/20/18 05:05 - DIAGNOSTIC IMAGING Diagnostic Imaging Results: Final report reviewed Diagnostic Imaging Results Comments: EXAM: CT ABDOMEN AND PELVIS EXAM DATE: 05/18/2018 12:53 AM. IMPRESSION: 1. Distended gallbladder with possible inflammatory changes. No calcified gallstones are seen but cholecystitis is not excluded. 2. Pneumobilia which could reflect prior intervention such as sphincterotomy. 3. Fatty liver. 4. Appendix appears normal. 5. Moderate stool in the right hemicolon. EXAM: ABDOMEN ULTRASOUND EXAM DATE: 05/18/2018 03:23 AM. IMPRESSION: 1. Dilated gallbladder with sludge and wall thickening. 2. No shadowing gallstones are identified. No focal tenderness over the gallbladder. Findings are somewhat equivocal with regard to cholecystitis. 3. Fatty liver. 4. Common duct not well seen. - FOLLOW UP Follow Up: Disposition: 01 Home, Self Care Condition: Good Prescriptions: Ciprofloxacin HCl [Cipro] 500 mg PO BID #14 tablet Metronidazole [Flagyl] 500 mg PO BID #14 tablet Saccharomyces Boulardii [Florastor] 250 mg PO BID #60 capsule Diet: Regular Activity Restrictions: Activity as Tolerated Shower Restrictions: No Weight Bearing: Full Weight Additional Instructions or Follow Up instructions: You were admitted for right upper quadrant abdominal pain. You underwent a cholecystecomy (removal of your gallbladder), and samples were taken showing that you will need continued treatment with oral antibiotics for another week. I have sent Ciprofloxacin, Flagyl and a probiotic to your pharmacy. Try not to take the probiotic at the same moment as your antibiotics. You should follow up with general surgery outpatient next week. Please see your PCP within one week. - TIME SPENT Time Spent in Discharge (Minutes): 45"
== END 2018-05-20 10:10 | disposition home or self-care (01) | DRG 413 ==
LOC: ED 22:20 → UNDOADMOB 05-18 01:31 → MS2 05-18 01:31 → OBSVTOIN 05-18 14:41 → INTOOBSV 05-18 14:41 → UNDODISIN 05-20 10:10
PROVIDERS: ADMIT Specialist; ATTEND Nurse Practitioner
PROC: 0FJB4ZZ Inspection of Hepatobiliary Duct, Percutaneous Endoscopic Approach (ICD-10-PCS; 2018-05-18)
PROC: 0FT44ZZ Resection of Gallbladder, Percutaneous Endoscopic Approach (ICD-10-PCS; principal; 2018-05-18 11:30)
DX: K81.0 Acute cholecystitis (principal); K82.8 Other specified diseases of gallbladder; Z66 Do not resuscitate; I10 Essential (primary) hypertension; G47.33 Obstructive sleep apnea (adult) (pediatric); K21.9 Gastro-esophageal reflux disease without esophagitis; K44.9 Diaphragmatic hernia without obstruction or gangrene; Z87.891 Personal history of nicotine dependence; F51.05 Insomnia due to other mental disorder; R73.9 Hyperglycemia, unspecified
CPT/HCPCS: 47564; G0378; 36415; 74177; 76700; 80053; 81001; 81003; 83036; 83690; 83735; 85025; 87040; 87070; 87077; 87086; 87181; 87205; 96361; 96365; 96366; 96367; 96375; 96376; 99283; 99284

== ENCOUNTER 2018-07-20 13:12 | Outpatient (CLI) | payer MEDICARE | END 2018-07-20 13:13 | disposition home or self-care (01) | LOC: SC 13:12 | PROVIDERS: ATTEND Nurse Practitioner Family | DX: G47.33 Obstructive sleep apnea (adult) (pediatric) (principal) | CPT/HCPCS: 99214; G0463; 99212 ==

== ENCOUNTER 2019-07-26 13:38 | Outpatient (CLI) | payer MEDICARE ==
[2019-07-26 15:57] VITALS: BP 118/70
--- NOTE | 2019-07-26 15:57 | SLEEP CARE CONSULTATION ---
Information from patient questionnaire entered by Na Arceo. I have reviewed and concur with the information entered by Na Arceo. This document represents the service I personally performed and the decisions made by me, Dayna Marquez, RN, MSN, [employer]. History of Present Illness Previous diagnosis: Mild (having difficulty getting supplies but does not want to transfer at this time. ), Obstructive Sleep Apnea-Hypopnea Syndrome AHI: 5.2 Reason for follow up: annual Equipment type: CPAP Equipment obtained from: [facility] Mask style: Nasal (Dreamwear) Mask brand: Respironics Backup mask available: Yes Last cushion change: 1 month Prior sleep studies: Yes Subjective Patient concerns: reports: mask leak noise (occasionally when sleeps on side by spouse). denies: aerophagia, mask discomfort, air blowing in eyes, condensation in mask/hose, nasal congestion, dry mouth, nose, throat, epistaxis Observed to snore while using device: No Current pressure setting perceived as: comfortable On therapy, patient: reports: sleeping better, awakening more refreshed, being more awake and alert during the day, more rested overall. denies: drowsiness while driving Initial [place] Sleepiness Scale score: 9 Current [place] Sleepiness Scale score: 7 Allergies and Home Medications Known drug allergies: No Home medication list reviewed: Yes Allergy and home medication list: Medication Name (generic/name brand) Strength & Dosage Citalopram Hydrobromide 40mg tab one daily Omeprazole Magnesium 20mg tab one daily Trazodone HCL 50mg tab two daily at bedtime Ibuprofen 200mg tab one twice daily Vitamin Tab one daily Acetaminophen 500mg tab one twice daily Review of Systems Review of systems same as previous: Yes Physical Exam Blood Pressure: 118/70 Heart Rate: 76 O2 Saturation: 96 Height: 5 ft 8.5 in Weight: 180 lb 4.8 oz Weight change since last visit: lost 3 pounds Body Mass Index: 27.0 BMI Classification: Overweight Impression and Plan 1. Obstructive Sleep Apnea-Hypopnea Syndrome, mild, with unknown treatment compliance and unknown apnea control. He reports that he is using his CPAP nightly. On CPAP therapy, the patient has better sleep quality and is more rested overall. He brought his card but no new data available. Thus he will put card back in device to retrieve data. If still now report, the back up plan is for [facility] to bring [facility] device for review and a new card. To reduce mask leaks when he sleeps on his side, I showed him a CPAP pillow. This and other styles can be bought online for about $60. For his supply concerns, he was advised that he could transfer but declined at this time. Patient's apnea severity and rationale for treatment to reduce apnea, improve sleep quality and reduce cardiovascular and cerebrovascular events was reviewed. I also reviewed the benefit of consistent device use of CPAP for depression/anxiety. * Continue CPAP pressure at 5-10 cmH2O * obtain CPAP compliance * Notify me if snoring with mask or feeling that the pressure is too much or too little * Attempt to lose weight * Return for follow up determined by compliance, or sooner if concerns arise * Addendum : 07-28-19 Patient brought back his card and CPAP and compliance received the following day. It shows that he uses CPAP on average of 7 hours and 43 minutes nightly with 92% compliance of more than 4 hours of use a day. HIs apnea is well controlled with a residual AHI of 1.5 on a autoCPAP pressure of [id number]. He does not need to return for one year Patient called at 18:30 and informed of above. I spent 100% of this 20 minute visit face to face with the patient with greater than 50% of this was spent time counseling the patient and coordination of care.
== END 2019-07-26 13:39 | disposition home or self-care (01) ==
LOC: SC 13:38
PROVIDERS: ATTEND Nurse Practitioner Family
DX: G47.33 Obstructive sleep apnea (adult) (pediatric) (principal)
CPT/HCPCS: 99213; G0463; 99212

== ENCOUNTER 2020-03-28 08:46 | Outpatient (CLI) | payer MEDICARE ==
--- NOTE | 2020-03-28 09:29 | SLEEP CARE CONSULTATION ---
Information from patient questionnaire entered by Janine Gonzalez. I have reviewed and concur with the information entered by Janine Gonzalez. This document represents the service I personally performed and the decisions made by , Nirmala Tripathi ARNP. History of Present Illness Service Date and Time: 03/28/2020 0846 Previous diagnosis: Mild, Obstructive Sleep Apnea-Hypopnea Syndrome AHI: 5.2 (in 2016) Reason for follow up: six month (with DME transfer) Equipment type: CPAP Equipment obtained from: [facility] (not getting supplies when needed, would like to change DME company) Mask style: Nasal Backup mask available: Yes (old mask) Last cushion change: unsure, not able to get supplies Prior sleep studies: Yes Year and Where: [facility] Type of Sleep Study: Home sleep study HPI additional information: BRAYAN KIM was diagnosed to have mild, AHI 5.2, obstructive sleep apnea- hypopnea syndrome and returned today for CPAP therapy six month follow-up. He has been having problems with getting needed supplies such as tubing, filters and nasal cushions. He comes in 5 months before his annual visit to see if he can get his DME supplier changed. He has no complaints of his mask or air pressure being uncomfortable but does get some air leaks because he needs new cushions. He feels overall more rested, more alert during the day and less sleepy with an [place] sleepiness scale of 8 today with use of is CPAP. CPAP Compliance Data - Data Reviewed with Patient Average duration of nightly device use: 8.75 Compliance rate %: 98 (90 days) Current pressure setting (cmH2O): 5-10 Average residual AHI: 3.1 Central apnea: 1.1 Obstructive apnea: 1.6 Hypopnea: 0.2 Average large leak: 23.8 Subjective Patient concerns: denies: aerophagia, mask discomfort, air blowing in eyes, mask leak noise, condensation in mask/hose, nasal congestion, dry mouth, nose, throat, epistaxis, other Observed to snore while using device: No Current pressure setting perceived as: comfortable On therapy, patient: reports: sleeping better, awakening more refreshed, being more awake and alert during the day, more rested overall. denies: drowsiness while driving Initial [place] Sleepiness Scale score: 9 (in 2017) Current [place] Sleepiness Scale score: 8 Allergies and Home Medications Known drug allergies: No Home medication list reviewed: Yes Review of Systems Review of systems same as previous: Yes (no changes) Physical Exam Heart Rate: 78 O2 Saturation: 95 Height: 5 ft 8.5 in Weight: 180 lb Body Mass Index: 26.9 BMI Classification: Overweight Impression and Plan 1. Obstructive Sleep Apnea-Hypopnea Syndrome, mild, with good treatment compliance and good apnea control. On CPAP therapy, there is improved sleep quality and feels more rested overall. He has had problems with getting his supplies and we will assist him in changing his DME provider so he may get his needed supplies. Patient's apnea severity and rationale for treatment to reduce apnea, improve sleep quality and reduce cardiovascular and cerebrovascular events was reviewed. I also reviewed the benefit of consistent device use of CPAP for gastric reflux and cardiac disease. Continue nasal autoCPAP pressure at 5-10 cm H2O. Notify me if snoring with the mask or feeling that the pressure is too much or too little. Attempt to lose weight. Change DME provider for supplies. Notify us with any concerns getting supplies. Return for follow-up in one year, or sooner if concerns arise. I spent 100% of this 20 minute visit face to face with the patient with greater than 50% of this was spent time counseling the patient and coordination of care. Visit Type: In Office Time Spent with Patient (minutes): 20 Provider Statement: I spent 100% of the Face to Face Visit with the patient with greater than 50% spent counseling the patient and coordination of care.
== END 2020-03-28 08:47 | disposition home or self-care (01) ==
LOC: SC 08:46
PROVIDERS: ATTEND Nurse Practitioner Family
DX: G47.33 Obstructive sleep apnea (adult) (pediatric) (principal); E66.3 Overweight; Z68.26 Body mass index [BMI] 26.0-26.9, adult
CPT/HCPCS: 99213; G0463; 99212

== ENCOUNTER 2021-01-21 13:25 | Emergency (ER) | payer MEDICARE, OTHER ==
[2021-01-21 13:35] VITALS: BP 140/74
[2021-01-21] MEDS ORDERED: SODIUM CHLORIDE 0.9% 1,000 ML IV STA ×2 (13:57)
--- NOTE | 2021-01-21 13:59 | ED Physician Documentation ---
History of Present Illness - Stated complaint Stated Complaint: FEVER,DIZZINESS,COUGH - Chief complaint Chief Complaint: Neuro - History obtained from History obtained from: Patient - History of Present Illness Timing: Today Pain level max: 0 Pain level now: 0 - Additonal information Additional information: 70-year-old male who presents to the emergency department complaining of subjective fevers for the past 4 to 5 days. States his maximum temperature was "around 100". Patient states he has a dry cough. Received both Covid vaccinations about 2 months ago. Nothing makes it better or worse. Today he felt lightheaded when he tried to stand up. No nausea or vomiting. No abdominal pain. No urinary symptoms. No back pain. Mild rhinorrhea and congestion. No sore throat. Review of Systems Constitutional: reports: Fever, Chills Ears: denies: Ear pain Nose: reports: Rhinorrhea / runny nose, Congestion Throat: denies: Sore throat Cardiac: denies: Chest pain / pressure Respiratory: reports: Cough. denies: Dyspnea, Hemoptysis, Wheezing GI: denies: Abdominal Pain, Nausea, Vomiting, Diarrhea : denies: Dysuria Skin: denies: Rash Musculoskeletal: denies: Neck pain, Back pain Neurologic: denies: Headache PD PAST MEDICAL HISTORY - Past Medical History Cardiovascular: Hypertension Respiratory: None, Sleep apnea Neuro: None Endocrine/Autoimmune: None GI: GERD, Cholelithiasis : Other HEENT: Chronic vision loss Psych: Depression Musculoskeletal: Osteoarthritis Derm: None - Past Surgical History Past Surgical History: Yes General: Colonoscopy, EGD, Other /ELECTRICIAN BUS: Other (radical prostatectomy) - Present Medications Home Medications: Ambulatory Orders Medication Instructions Recorded Confirmed Citalopram [CeleXA] 40 mg PO DAILY 05/17/18 01/21/21 Omeprazole [PriLOSEC] 20 mg PO DAILY 05/17/18 01/21/21 traZODone [Desyrel] 100 mg PO DAILY PM 05/17/18 01/21/21 Multivitamin [Theragran] 1 tab PO DAILY 05/18/18 01/21/21 - Allergies Allergies/Adverse Reactions: Allergies Allergy/AdvReac Type Severity Reaction Status Date / Time No Known Drug Allergies Allergy Verified 01/21/21 13:32 - Social History Does the pt smoke?: Yes Smoking Status: Current every day smoker Does the pt drink ETOH?: No Does the pt have substance abuse?: No - Immunizations Immunizations are current?: Yes - POLST Patient has POLST: Yes POLST Status: DNR PD ED PE NORMAL - Vitals Vital signs reviewed: Yes - General General: Alert and oriented X 3, No acute distress, Well developed/nourished - HEENT HEENT: PERRL, Moist mucous membranes, Pharynx benign - Neck Neck: Supple, no meningeal sign, No adenopathy - Cardiac Cardiac: RRR, Strong equal pulses - Respiratory Respiratory: No respiratory distress, Clear bilaterally - Abdomen Abdomen: Soft, Non tender, Non distended - Derm Derm: Warm and dry - Extremities Extremities: No edema, No calf tenderness / cord - Neuro Neuro: Alert and oriented X 3 - Psych Psych: Normal mood, Normal affect Results - Vitals Vitals: Vital Signs - 24 hr 01/21/21 01/21/21 13:33 13:42 Temperature 36.9 C Heart Rate 81 81 Respiratory 18 16 Rate Blood Pressure 140/74 H 140/74 H O2 Saturation 95 97 Oxygen O2 Source Room air - EKG (time done) 1340 Rate: Rate (enter#) (79) Rhythm: NSR [place]: Normal Intervals: Normal [place] QRS: Normal Ischemia: Normal ST segments, Q waves (III, aVF) - Labs Labs: Laboratory Tests 01/21/21 01/21/21 01/21/21 13:46 13:46 14:07 WBC 9.0 RBC 4.15 L Hgb 14.0 Hct 41.1 L MCV 99.0 H MCH 33.7 H MCHC 34.1 RDW 12.1 Plt Count 213 MPV 8.7 Neut # (Auto) 7.0 H Lymph # (Auto) 1.0 L [place] # (Auto) 0.8 Eos # (Auto) 0.1 Baso # (Auto) 0.0 Absolute Nucleated RBC 0.00 Nucleated RBC % 0.0 Sodium 137 Potassium 4.1 Chloride 102 Carbon Dioxide 24 Anion Gap 11.0 BUN 22 H Creatinine 0.9 Estimated GFR (MDRD) 83 L Glucose 223 H Calcium 9.3 Total Bilirubin 0.7 AST 15 ALT 16 Alkaline Phosphatase 67 Total Protein 7.8 Albumin 3.9 Globulin 3.9 Albumin/Globulin Ratio 1.0 Urine Color YELLOW Urine Clarity CLEAR Urine pH 5.5 Ur Specific [place] >=1.030 H Urine Protein NEGATIVE Urine Glucose (UA) NEGATIVE Urine Ketones 15 H Urine Occult Blood NEGATIVE Urine Nitrite NEGATIVE Urine Bilirubin NEGATIVE Urine Urobilinogen 0.2 (NORMAL) Ur Leukocyte Esterase NEGATIVE Ur Microscopic Review NOT INDICATED Urine Culture Comments NOT INDICATED Nasal Adenovirus (PCR) Nasal B. parapertussis DNA (PCR) Nasal Coronavir 229E PCR Nasal Coronavir HKU1 PCR Nasal Coronavir NL63 PCR Nasal Coronavir OC43 PCR Nasal Enterovir/Rhinovir PCR Nasal Influenza B PCR Nasal Influenza A PCR Nasal Parainfluen 1 PCR Nasal Parainfluen 2 PCR Nasal Parainfluen 3 PCR Nasal Parainfluen 4 PCR Nasal RSV (PCR) Nasal B.pertussis DNA PCR Nasal C.pneumoniae (PCR) [place]se[place] Human Metapneumo PCR Nasal M.pneumoniae (PCR) Nasal SARS-CoV-2 (PCR) 01/21/21 14:17 WBC RBC Hgb Hct MCV MCH MCHC RDW Plt Count MPV Neut # (Auto) Lymph # (Auto) [place] # (Auto) Eos # (Auto) Baso # (Auto) Absolute Nucleated RBC Nucleated RBC % Sodium Potassium Chloride Carbon Dioxide Anion Gap BUN Creatinine Estimated GFR (MDRD) Glucose Calcium Total Bilirubin AST ALT Alkaline Phosphatase Total Protein Albumin Globulin Albumin/Globulin Ratio Urine Color Urine Clarity Urine pH Ur Specific [place] Urine Protein Urine Glucose (UA) Urine Ketones Urine Occult Blood Urine Nitrite Urine Bilirubin Urine Urobilinogen Ur Leukocyte Esterase Ur Microscopic Review Urine Culture Comments Nasal Adenovirus (PCR) NOT DETECTED Nasal B. parapertussis DNA (PCR) NOT DETECTED Nasal Coronavir 229E PCR NOT DETECTED Nasal Coronavir HKU1 PCR NOT DETECTED Nasal Coronavir NL63 PCR NOT DETECTED Nasal Coronavir OC43 PCR NOT DETECTED Nasal Enterovir/Rhinovir PCR NOT DETECTED Nasal Influenza B PCR NOT DETECTED Nasal Influenza A PCR NOT DETECTED Nasal Parainfluen 1 PCR NOT DETECTED Nasal Parainfluen 2 PCR NOT DETECTED Nasal Parainfluen 3 PCR NOT DETECTED Nasal Parainfluen 4 PCR NOT DETECTED Nasal RSV (PCR) NOT DETECTED Nasal B.pertussis DNA PCR NOT DETECTED Nasal C.pneumoniae (PCR) NOT DETECTED Oseas Human Metapneumo PCR NOT DETECTED Nasal M.pneumoniae (PCR) NOT DETECTED Nasal SARS-CoV-2 (PCR) NOT DETECTED - Rads (name of study) cxr Radiology: Prelim report reviewed, EMP read contemporaneously, See rad report (Unremarkable portable chest for age. ) PD MEDICAL DECISION MAKING - ED course Complexity details: reviewed results, re-evaluated patient, considered differential, d/w patient ED course: 70-year-old male presents to the emergency department that appears to be a viral syndrome complicated by dehydration. Received IV fluids and feels much better. No evidence of pneumonia. Negative Covid testing. No hypoxia. No respiratory distress. No UTI. Patient is well-appearing, nontoxic. Afebrile. Abdomen remains soft, nontender nondistended on serial exam. Patient counseled regarding signs and symptoms for which I believe and urgent re-evaluation would be necessary. Patient with good understanding of and agreement to plan and is comfortable going home at this time This document was made in part using voice recognition software. While efforts are made to proofread this document, sound alike and grammatical errors may occur. Departure - Departure Disposition: 01 Home, Self Care Clinical Impression: Viral syndrome, Dehydration Condition: Good Instructions: ED Dehydration Follow-Up: Chris Hope ARNP [Primary Care Provider] - Within 1 week Comments: Make sure you are drinking plenty of water at home. You appear dehydrated today. This will cause the dizziness. There is no evidence of pneumonia on your x-ray. This is likely a viral syndrome that should improve over the next few days. Return if you worsen. Discharge Date/Time: 01/21/21 16:36
[2021-01-21 14:02] LABS: BASOPHILS % (AUTO) 0.4 %; EOSINOPHILS # (AUTO) 0.1 10^3/uL (0.0-0.7); EOSINOPHILS % (AUTO) 0.7 %; HCT - HEMATOCRIT 41.1 % (42.0-52.0); LYMPHOCYTES % (AUTO) 11.1 %; MEAN CORPUSCULAR HEMOGLOBIN 33.7 pg (27.0-31.0); MEAN CORPUSCULAR HGB CONC 34.1 g/dL (32.0-36.0); MEAN PLATELET VOLUME 8.7 fL (7.4-11.4); MONOCYTES # (AUTO) 0.8 10^3/uL (0.0-1.0); MONOCYTES % (AUTO) 9.1 %; NEUTROPHILS % (AUTO) 77.6 %; PLT - PLATELET COUNT 213 10^3/uL (130-450); RED BLOOD COUNT 4.15 10^6/uL (4.70-6.10); RED CELL DISTRIBUTION WIDTH 12.1 % (12.0-15.0)
--- OUTSIDE RECORDS SUMMARY | 2021-01-21 14:04 | EXTERNAL MEDICAL SUMMARY RPT | Continuity of Care Document ---
:1950 Demographics Phone Unavailable Preferred Language Unknown Marital Status Unknown Islam Affiliation Unknown Race Unknown Ethnic Group Unknown Author Organization [facility] Address [address] [place] [address] Phone Allergies Encounters Medications Problems Results
[2021-01-21 14:11] LABS: ALBUMIN 3.9 g/dL (3.2-5.5); BILIRUBIN,TOTAL 0.7 mg/dL (0.2-1.0); CALCIUM 9.3 mg/dL (8.5-10.3); CREATININE 0.9 mg/dL (0.6-1.2); POTASSIUM 4.1 mmol/L (3.5-5.0); TOTAL PROTEIN 7.8 g/dL (6.7-8.2)
[2021-01-21 14:16] LABS: BILIRUBIN,URINE NEGATIVE (NEGATIVE); GLUCOSE, URINE (UA) NEGATIVE (NEGATIVE); KETONES,URINE (UA) 15 mg/dL (NEGATIVE); LEUKOCYTE ESTERASE, URINE NEGATIVE (NEGATIVE); NITRITE,URINE NEGATIVE (NEGATIVE); OCCULT BLOOD,URINE NEGATIVE (NEGATIVE); PH,URINE 5.5 PH (5.0-7.5); PROTEIN,URINE NEGATIVE (NEGATIVE); UROBILINOGEN,URINE 0.2 (NORMAL) E.U./dL (NORMAL)
[2021-01-21 14:18] LABS: CLARITY,URINE CLEAR (CLEAR)
--- NOTE | 2021-01-21 15:09 | XRAY Report ---
PROCEDURE: Chest 1 View X-Ray INDICATIONS: chest pain TECHNIQUE: One view of the chest was acquired. COMPARISON: None FINDINGS: Surgical changes and devices: None. Lungs and pleura: No pleural effusions or pneumothorax. Lungs are clear. Mediastinum: Mediastinal contours appear normal. Heart size is normal. Bones and chest wall: No suspicious bony lesions. Mild levoconvex scoliotic curvature is seen. Age -appropriate degenerative changes are seen. Overlying soft tissues appear unremarkable. IMPRESSION: Unremarkable portable chest for age. Reviewed by: Juan Manuel Beasley MD on 01/21/2021 2:07 PM CODY Approved by: Juan Manuel Beasley MD on 01/21/2021 2:07 PM CODY Station ID: [id number]
[2021-01-21 15:18] LABS: B. PARAPERTUSSIS- RESP PCR PAN NOT DETECTED; B. PERTUSSIS- RESP PCR PANEL NOT DETECTED; C. PNEUMONIAE- RESP PCR PANEL NOT DETECTED; CORONAVIRUS 229E-RESP PCR NOT DETECTED; CORONAVIRUS HKU1-RESP PCR NOT DETECTED; CORONAVIRUS NL63-RESP PCR NOT DETECTED; CORONAVIRUS OC43-RESP PCR NOT DETECTED; HUMAN METAPNEUMOVIRUS NOT DETECTED; INFLUENZA A- RESP PCR PANEL NOT DETECTED; INFLUENZA B - RESP PCR PANEL NOT DETECTED; M. PNEUMONIAE- RESP PCR PANEL NOT DETECTED; PARAINFLUENZA VIRUS 1 NOT DETECTED; PARAINFLUENZA VIRUS 2 NOT DETECTED; PARAINFLUENZA VIRUS 3 NOT DETECTED; PARAINFLUENZA VIRUS 4 NOT DETECTED; RHINOVIRUS/ENTEROVIRUS NOT DETECTED; RSV- RESP PCR PANEL NOT DETECTED; SARS-CoV-2 -RESP PCR PANEL NOT DETECTED
== END 2021-01-21 16:36 | disposition home or self-care (01) ==
LOC: ED 13:25
DX: B34.9 Viral infection, unspecified (principal); E86.0 Dehydration; F17.200 Nicotine dependence, unspecified, uncomplicated; Z20.822 Contact with and (suspected) exposure to COVID-19; Z66 Do not resuscitate
CPT/HCPCS: 0202U; 36415; 80053; 81001; 81003; 85025; 87086; 93005; 99284

== ENCOUNTER 2021-01-25 06:27 | Outpatient (CLI) | payer MEDICARE, OTHER | END 2021-01-25 06:28 | disposition critical access hospital (66) | LOC: EMS 06:27 | DX: R10.9 Unspecified abdominal pain (principal); R06.00 Dyspnea, unspecified | CPT/HCPCS: A0425; A0427 ==

== ENCOUNTER 2021-01-25 06:46 | Inpatient (IN) | payer MEDICARE, OTHER ==
[2021-01-25] MEDS ORDERED: SODIUM CHLORIDE 0.9% 1,000 ML IV STA ×2 (07:10→09:54)
[2021-01-25] MEDS ORDERED: MORPHINE 2 MG/ML CARPUJECT IVP STA (07:27)
--- NOTE | 2021-01-25 07:27 | ED Physician Documentation ---
History of Present Illness - Stated complaint Stated Complaint: L FLANK PX - Chief complaint Chief Complaint: Back Pain - History obtained from History obtained from: Patient - Additonal information Additional information: 71-year-old man with recent ED visit for fever and a cough, diagnosed with viral syndrome last week, presents with a week and a half of fever, nonproductive cough, T-max 101.7 yesterday, and left-sided flank pain gradual in onset over the past couple days, constant, sharp, associated with nonbloody nonbilious nausea and vomiting this morning. Pain is mild at present after getting 6 mg IV morphine and 4 mg of Zofran via EMS, however EMS reported his oxygen desaturated en route. Patient states that his pain is worse with a deep breath and he feels like he is unable to take a deep deep breath. Not exertional. No chest pain. Denies abdominal pain or urinary symptoms. Review of Systems Ten Systems: 10 systems reviewed and negative Constitutional: reports: Fever, Chills, Myalgias, Fatigue Cardiac: denies: Chest pain / pressure Respiratory: reports: Dyspnea, Cough GI: reports: Nausea, Vomiting. denies: Abdominal Pain Musculoskeletal: reports: Back pain PD PAST MEDICAL HISTORY - Past Medical History Past Medical History: Yes Cardiovascular: Hypertension Respiratory: None, Sleep apnea Neuro: None Endocrine/Autoimmune: None GI: GERD, Cholelithiasis : Other HEENT: Chronic vision loss Psych: Depression Musculoskeletal: Osteoarthritis Derm: None Other Past Medical History: PROSTATE CANCER... - Past Surgical History Past Surgical History: Yes General: Colonoscopy, EGD, Other /PYTHON CONSULTANT: Other (radical prostatectomy) - Present Medications Home Medications: Ambulatory Orders Medication Instructions Recorded Confirmed Citalopram [CeleXA] 40 mg PO DAILY 05/17/18 01/25/21 Omeprazole [PriLOSEC] 20 mg PO DAILY 05/17/18 01/25/21 traZODone [Desyrel] 100 mg PO DAILY PM 05/17/18 01/25/21 Multivitamin [Theragran] 1 tab PO DAILY 05/18/18 01/25/21 - Allergies Allergies/Adverse Reactions: Allergies Allergy/AdvReac Type Severity Reaction Status Date / Time No Known Drug Allergies Allergy Verified 01/25/21 06:57 - Social History Does the pt smoke?: Yes Smoking Status: Current every day smoker Does the pt drink ETOH?: No Does the pt have substance abuse?: No - Immunizations Immunizations are current?: Yes - POLST Patient has POLST: Yes POLST Status: DNR PD ED PE NORMAL - Vitals Vital signs reviewed: Yes - General General: Alert and oriented X 3, No acute distress, Well developed/nourished - HEENT HEENT: Atraumatic, PERRL, EOMI - Neck Neck: Supple, no meningeal sign - Cardiac Cardiac: RRR - Respiratory Respiratory: No respiratory distress, Clear bilaterally - Abdomen Abdomen: Non tender, Non distended - Back Back: Other (L CVA ttp) - Derm Derm: Normal color, Warm and dry - Extremities Extremities: No deformity - Neuro Neuro: Alert and oriented X 3 - Psych Psych: Normal mood, Normal affect Results - Vitals Vitals: Vital Signs - 24 hr 01/25/21 01/25/21 01/25/21 06:54 07:22 09:43 Temperature 36.3 C L 36.4 C L Heart Rate 74 77 67 Respiratory 18 17 14 Rate Blood Pressure 115/69 112/73 126/78 O2 Saturation 94 96 94 Oxygen O2 Source Room air - Labs Labs: Laboratory Tests 01/25/21 01/25/21 01/25/21 07:34 07:34 07:34 WBC 12.4 H RBC 3.78 L Hgb 12.7 L Hct 37.3 L MCV 98.7 H MCH 33.6 H MCHC 34.0 RDW 12.0 Plt Count 227 MPV 8.3 Neut # (Auto) 9.8 H Lymph # (Auto) 1.0 L Early # (Auto) 1.2 H Eos # (Auto) 0.1 Baso # (Auto) 0.1 Absolute Nucleated RBC 0.00 Nucleated RBC % 0.0 D-Dimer 339.9 H Sodium 134 L Potassium 4.2 Chloride 102 Carbon Dioxide 23 Anion Gap 9.0 BUN 23 H Creatinine 1.0 Estimated GFR (MDRD) 73 L Glucose 193 H Calcium 8.5 Total Bilirubin 0.7 AST 13 ALT 16 Alkaline Phosphatase 70 Total Protein 7.4 Albumin 3.2 Globulin 4.2 Albumin/Globulin Ratio 0.8 L Lipase 35 PD MEDICAL DECISION MAKING - ED course ED course: Patient with elevated dimer. Will obtain CT angio of the chest as well as a CT of the abdomen pelvis to evaluate for kidney stones versus other etiology. Departure - Departure Disposition: ED Place in Observation Clinical Impression: Nausea and vomiting
[2021-01-25 07:44] LABS: BASOPHILS # (AUTO) 0.1 10^3/uL (0.0-0.1); BASOPHILS % (AUTO) 0.6 %; EOSINOPHILS # (AUTO) 0.1 10^3/uL (0.0-0.7); EOSINOPHILS % (AUTO) 0.9 %; HCT - HEMATOCRIT 37.3 % (42.0-52.0); HGB - HEMOGLOBIN 12.7 g/dL (14.0-18.0); MEAN CORPUSCULAR HEMOGLOBIN 33.6 pg (27.0-31.0); MEAN CORPUSCULAR VOLUME 98.7 fL (80.0-94.0); MEAN PLATELET VOLUME 8.3 fL (7.4-11.4); MONOCYTES # (AUTO) 1.2 10^3/uL (0.0-1.0); MONOCYTES % (AUTO) 9.3 %; NEUTROPHILS # (AUTO) 9.8 10^3/uL (1.5-6.6); PLT - PLATELET COUNT 227 10^3/uL (130-450); RED BLOOD COUNT 3.78 10^6/uL (4.70-6.10); WHITE BLOOD COUNT 12.4 x10^3/uL (4.8-10.8)
--- OUTSIDE RECORDS SUMMARY | 2021-01-25 08:00 | EXTERNAL MEDICAL SUMMARY RPT | Continuity of Care Document ---
:1950 Demographics Phone Unavailable Preferred Language Unknown Marital Status Unknown Jew Affiliation Unknown Race Unknown Ethnic Group Unknown Author Organization [facility] Address [address] [place] [address] Phone Allergies Encounters Medications Problems Results
[2021-01-25 08:03] LABS: ALBUMIN 3.2 g/dL (3.2-5.5); ALBUMIN/GLOBULIN RATIO 0.8 (1.0-2.2); BILIRUBIN,TOTAL 0.7 mg/dL (0.2-1.0); CALCIUM 8.5 mg/dL (8.5-10.3); POTASSIUM 4.2 mmol/L (3.5-5.0); TOTAL PROTEIN 7.4 g/dL (6.7-8.2)
[2021-01-25] MEDS ORDERED: IOVERSOL 320 100 ML VIAL IVP ONE ×2 (08:31→08:57)
--- NOTE | 2021-01-25 08:36 | XRAY Report ---
PROCEDURE: Chest 2 View X-Ray INDICATIONS: Cough, fever, right-sided flank pain, pleurisy TECHNIQUE: 2 view(s) of the chest. COMPARISON: 01/21/2021 chest radiographs FINDINGS: Surgical changes and devices: None. Lungs and pleura: No pleural effusions or pneumothorax. Lungs are clear. Mediastinum: Mediastinal contours are normal. Heart size is normal. Bones and chest wall: No suspicious bony abnormalities. Soft tissues appear unremarkable. IMPRESSION: No acute cardiopulmonary process demonstrated radiographically. Reviewed by: Omar Pinedo MD on 01/25/2021 8:35 AM PDT Approved by: Omar Pinedo MD on 01/25/2021 8:35 AM PDT Station ID: [id number]
--- NOTE | 2021-01-25 09:40 | CT Report ---
PROCEDURE: ANGIO CHEST W/WO INDICATIONS: R flank pain, pleuritic, cough, elevated dimer CONTRAST: IV CONTRAST: Optiray 320 ml: 100 PO CONTRAST: *NO PO CONTRAST TECHNIQUE: After the administration of intravenous contrast, 2 mm thick sections acquired from the pulmonary api elizabeth to the posterior costophrenic angles. 3-dimensional maximum intensity projection (MIP) coronal a nd sagittal reformats were then acquired through the thorax. For radiation dose reduction, the follow ing was used: automated exposure control, adjustment of mA and/or kV according to patient size. COMPARISON: FINDINGS: Image quality: Excellent. Pulmonary arteries: Pulmonary arteries are normal in size, and demonstrate no intraluminal filling d efects to suggest central pulmonary embolism. Lungs and pleura: Lungs are abnormal with a small to moderate degree of pneumonia asymmetrically pro minent at the left lower lobe. There also also what appears to be mild atelectasis along the posterio r border of the lingular segment left upper lobe. No pulmonary mass lesion is found.. No pleural eff usions or pneumothorax. Central and peripheral airways are patent. Mediastinum: Heart size is normal, without pericardial effusion. No mediastinal or hilar adenopathy . Thoracic aorta is normal in caliber and enhancement. Esophagus is normal in caliber, without hiat al hernia. Bones and chest wall: No suspicious bony lesions. Ribs and thoracic spine appear intact throughout. No axillary or supraclavicular adenopathy. The thyroid is normal in size and there are no incident al findings. Abdomen: Visualized upper abdominal solid organs appear normal in the early arterial phase of enhanc ement. IMPRESSION: No pulmonary embolus seen. Mild to moderate left lower lobe pneumonia without adjacent pleural effusi on. Mild atelectasis along the posterior border of the lingular segment left upper lobe. Reviewed by: Jayjay Pierre MD on 01/25/2021 8:39 AM CODY Approved by: Jayjay Pierre MD on 01/25/2021 8:39 AM [facility] Station ID: [id number]
--- NOTE | 2021-01-25 09:46 | CT Report ---
PROCEDURE: Abdomen/Pelvis W INDICATIONS: L flank pain CONTRAST: IV CONTRAST: Optiray 320 ml: 100 PO CONTRAST: *NO PO CONTRAST TECHNIQUE: After the administration of contrast, 5 mm thick sections acquired from the diaphragms to the sym physis. 5 mm thick coronal and sagittal reformats were acquired. For radiation dose reduction, the following was used: automated exposure control, adjustment of mA and/or kV according to patient size . COMPARISON: Chest CT scanning same day. Prior abdomen/pelvis CT scanning 05/18/2018.. FINDINGS: Image quality: Excellent. ABDOMEN: Lung bases: Lung bases are clear except for presence of mild to moderate pneumonia left lower lobe w ithout associated pleural effusion. There is a small hiatal hernia behind the heart. Heart size is n ormal. Solid organs: Liver and spleen are normal in size and enhancement. Gallbladder has been previously resected. There is mild associated pneumobilia anteriorly, within the left hepatic lobe. Biliary sys tem is non dilated. Pancreas enhances normally. No adrenal nodules. Kidneys demonstrate normal siz e and enhancement, without hydronephrosis. Peritoneum and bowel: Bowel loops demonstrate normal wall thickness and caliber. No free fluid or a ir. Nodes and vessels: No retroperitoneal or mesenteric adenopathy by size criteria. Aorta and inferior vena cava are normal in size. Miscellaneous: No ventral hernias. PELVIS: Genitourinary: Bladder wall thickness is normal. Miscellaneous: No inguinal hernias or adenopathy. Scattered bilateral pelvic sidewall surgical clip s are present, likely indicating prior prostatectomy. Bones: No suspicious bony lesions. No vertebral body compression fractures. IMPRESSION: 1. Mild to moderate left lower lobe pneumonia, without pleural effusion. Incidental note is made of a small hiatal hernia behind the heart. 2. Prior cholecystectomy. Mild associated pneumobilia anteriorly, within the left hepatic lobe. 3. Presumed prior prostate resection, given the pattern of bilateral pelvic sidewall surgical clips a nd appearance of the prostate region, where normal prostate parenchyma is not seen. No evidence of me tastatic disease. Reviewed by: Jayjay Pierre MD on 01/25/2021 8:45 AM CODY Approved by: Jayjay Pierre MD on 01/25/2021 8:45 AM [place] Station ID: [id number]
[2021-01-25] MEDS ORDERED: cefTRIAXone 2 GM in SODIUM CHLORIDE 0.9% MINIBAG 100 ML IV STA (09:56)
[2021-01-25] MEDS ORDERED: AZITHROMYCIN INJ 500 MG in SODIUM CHLORIDE 0.9% 250 ML IV STA (09:56)
[2021-01-25] MEDS ORDERED: SODIUM CHLORIDE FLUSH 0.9% 10 ML SYRINGE IVP PRN (10:57)
[2021-01-25] MEDS ORDERED: ONDANSETRON 4 MG/2 ML VIAL IVP PRN (10:57)
--- NOTE | 2021-01-25 11:10 | HISTORY & PHYSICAL EXAMINATION ---
Chief Complaint - Chief Complaint Chief Complaint: left viola pain History of Present Illness - Admitted From Admitted From:: ER - History Obtained From Records Reviewed: [facility] History obtained from: pt Exam Limitations: no - History of Present Illness HPI Comment/Other: This is a 71-year-old man with a PMH significant for Hypertension, sleep apnea, GERD, cholelithiasis, Chronic vision loss, depression, osteoarthritis, prostate cancer who present ER complain of cough, left side viola pain. Pt visited ER at 01/21, in which pt was diagnosis of viral syndrome. Covid 19 test was negative. pt report he continue to have low degree of fever, nonproductive cough, left- sided posterior rib cage pain which was gradual onset over the past couple days. The pain was sharp, constant. Patient report that his pain is worsening with deep breath and he fear he is unable to take deep breath because of the pain. pt denies nausea, vomiting or anterior chest pain. EMS reported his oxygen desaturated at middle of [address] to ER. In ER, Patient is afebrile, he had 91% sat in the room air. CTA of chest show no PE, Mild to moderate left low lobe pneumonia. CT of abdomen/pelvis Show mild to moderate left lower lobe pneumonia without pleural effusion, Kidneys demonstrate normal size and enhancement, without hydronephrosis. Routine laboratory test show patient had mildly elevated WBC at 12.4, BUN is 23. Discussed the care goal with patient, patient request DNR History - Past Medical History Cardiovascular: reports: Hypertension Respiratory: reports: None, Sleep apnea Neuro: reports: None Endocrine/Autoimmune: reports: None GI: reports: GERD, Cholelithiasis : reports: Other HEENT: reports: Chronic vision loss Psych: reports: Depression Musculoskeletal: reports: Osteoarthritis Derm: reports: None MRSA Hx?: No Other Past Medical History: PROSTATE CANCER... - Past Surgical History General: reports: Colonoscopy, EGD, Other /CUSTOMER SUCCESS INTERN: reports: Other (radical prostatectomy) - Family & Social History Family History: Mother: , Father: Family History Comment/Other: father at age 82, old age. Mother at age 90 high cholesterol and high blood pressure. 2 sisters are alive and well. 2 brothers alive and well with high cholesterol, high blood pressure and diabetes. One child healthy. Neg for GI tumors Social History Notes: From [place]. 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 Quit 25 years ago. He smoked 1 pack per day. He walks every day, 60-90 minutes a day. He is . Has no history of alcohol abuse and rarely drinks. 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 - Substance History Use: Uses substance without health or social issues: NONE - POLST Patient has POLST: Yes POLST Status: DNR Meds/Allgy - Home Medications Home Medications: Ambulatory Orders Medication Instructions Recorded Confirmed Citalopram [CeleXA] 40 mg PO DAILY 05/17/18 01/25/21 Omeprazole [PriLOSEC] 20 mg PO DAILY 05/17/18 01/25/21 traZODone [Desyrel] 100 mg PO DAILY PM 05/17/18 01/25/21 Multivitamin [Theragran] 1 tab PO DAILY 05/18/18 01/25/21 - Allergies Allergies/Adverse Reactions: Allergies Allergy/AdvReac Type Severity Reaction Status Date / Time No Known Drug Allergies Allergy Verified 01/25/21 06:57 Review of Systems - Constitutional Constitutional: reports: Fatigue, Fever. denies: Malaise, Weakness, Poor appetite, Diaphoresis - Eyes Eyes: denies: Pain, Blurred vision, Field loss, Vision loss - Ears, Nose & Throat Ears, Nose & Throat: denies: Ear pain, Vertigo, Nosebleeds, Bleeding gums - Cardiovascular Cariovascular: reports: Other (posterior left rib cage pain). denies: Irregular heart rate, Palpitations, Chest pain, Edema, Lightheadedness, Syncope, Exertional dyspnea, Decr. exercise tolerance - Respiratory Respiratory: reports: Cough, Sputum production. denies: Wheezing, Hemoptysis, Orthopnea, SOB at rest, SOB with exertion - Gastrointestinal Gastrointestinal: denies: Abdominal pain, Diarrhea, Rectal bleeding, Black stools, Bloody stools, Nausea, Vomiting - Genitourinary Genitourinary: denies: Dysuria, Incontinence - Musculoskeletal Musculoskeletal: denies: Muscle pain, Muscle aches, Limited range of motion - Integumentary Integumentary: denies: Rash, Lumps - Neurological Neurological: denies: General weakness, Focal weakness, Headache, Dizziness, Numbness, Memory problems, Pre-existing deficit, Abnormal gait, Seizures, Incoordination, Slurred speech - Psychiatric Psychiatric: denies: Depression, Anxiety, Delusions - Endocrine Endocrine: denies: Polyuria, Polyphagia - Hematologic/Lymphatic Hematologic/Lymphatic: denies: Anemia, Blood clots Prior Level of Functionality: Patient is independent in the home Exam - Vital Signs Vital Signs: Vital Signs x48h Temp Pulse Resp BP Pulse Ox 01/25/21 11:06 36.6 C 69 16 136/85 H 93 01/25/21 10:10 91 L 01/25/21 09:43 36.4 C L 67 14 126/78 94 01/25/21 07:22 77 17 112/73 96 01/25/21 06:54 36.3 C L 74 18 115/69 94 - Physical Exam General Appearance: positive: No acute distress, Alert. negative: Lethargic Eyes Bilateral: positive: Normal inspection, PERRL, No lid inflammation ENT: positive: ENT inspection nml, No signs of dehydration. negative: Purulent nasal drainage Neck: positive: Nml inspection, Trachea midline. negative: Thyromegaly, Tracheal deviation Respiratory: positive: Chest non-tender, No respiratory distress, Rhonchi (left lower crackles). negative: Wheezes, Rales Cardiovascular: positive: Regular rate & rhythm, No murmur. negative: Tachycardia, Bradycardia, Systolic murmur, Diastolic murmur Peripheral Pulses: positive: 2+ Abdomen: positive: Non-tender, Nml bowel sounds, No distention. negative: Tenderness Back: positive: Nml inspection. negative: CVA tenderness (R), CVA tenderness (L) Skin: positive: Color nml, Warm, Dry. negative: Cyanosis Extremities: positive: Non-tender, Full ROM, Nml appearance, No pedal edema. negative: Calf tenderness Neurologic/Psychiatric: positive: Oriented x3, Motor nml, Sensation nml, Mood/affect nml. negative: Weakness, Sensory loss, Facial droop, Slurred/abnml speech, Depressed mood/affect Conclusion/Plan - Problem List (1) Pneumonia Conclusion/Plan: pt present cough, Patient had slightly elevated WBC, desat on room air, left rib pain, CT show left lower lobe pneumonia. We will treat the patient with antibiotics, Pain control, Intravenous IV fluids, Blood culture is pending. Patient has no fever in the ER. (2) Rib pain on left side Conclusion/Plan: CTA show left lower lobe pneumonia without PE. We will check troponin and followup, we will treat pt with antibiotics for pneumonia, pain control with morphine as needed. (3) GERD (gastroesophageal reflux disease) Conclusion/Plan: pt hx of GERD, resume home Protonix, add GI cocktail as needed. (4) Dehydration Conclusion/Plan: Patient had elevated BUN, Clinically pt show had some dehydration. continue intravenous IV fluids, vital and lab monitor (5) Depression Conclusion/Plan: Stable, will resume home Celexa (6) Sleep apnea Conclusion/Plan: Patient has a history of sleep apnea, we will continue CPAP for pt. - Lab Results Fish Bones: 01/25/21 07:34 01/25/21 07:34 Core Measures - Anticipated LOS I expect patient to be DC'd or transferred within 96 hours.: Yes - DVT/VTE - Prophylaxis VTE/DVT Device ordered at admit?: Yes VTE/DVT Prophylaxis med ordered at admit?: Yes
--- OUTSIDE RECORDS SUMMARY | 2021-01-25 11:22 | EXTERNAL MEDICAL SUMMARY RPT | Continuity of Care Document ---
:1950 Demographics Phone Unavailable Preferred Language Unknown Marital Status Unknown Confucianist Affiliation Unknown Race Unknown Ethnic Group Unknown Author Organization [facility] Address [address] [place] [address] Phone Allergies Encounters Medications Problems Results
[2021-01-25 11:41] LABS: B. PARAPERTUSSIS- RESP PCR PAN NOT DETECTED; B. PERTUSSIS- RESP PCR PANEL NOT DETECTED; C. PNEUMONIAE- RESP PCR PANEL NOT DETECTED; CORONAVIRUS 229E-RESP PCR NOT DETECTED; CORONAVIRUS HKU1-RESP PCR NOT DETECTED; CORONAVIRUS NL63-RESP PCR NOT DETECTED; CORONAVIRUS OC43-RESP PCR NOT DETECTED; HUMAN METAPNEUMOVIRUS NOT DETECTED; INFLUENZA A- RESP PCR PANEL NOT DETECTED; INFLUENZA B - RESP PCR PANEL NOT DETECTED; M. PNEUMONIAE- RESP PCR PANEL NOT DETECTED; PARAINFLUENZA VIRUS 1 NOT DETECTED; PARAINFLUENZA VIRUS 2 NOT DETECTED; PARAINFLUENZA VIRUS 3 NOT DETECTED; PARAINFLUENZA VIRUS 4 NOT DETECTED; RHINOVIRUS/ENTEROVIRUS NOT DETECTED; RSV- RESP PCR PANEL NOT DETECTED; SARS-CoV-2 -RESP PCR PANEL NOT DETECTED
[2021-01-25] MEDS: SODIUM CHLORIDE 0.9% 1,000 ML IV SCH ×2 (11:55→21:51)
[2021-01-25 12:13] LABS: BILIRUBIN,URINE NEGATIVE (NEGATIVE); GLUCOSE, URINE (UA) NEGATIVE (NEGATIVE); KETONES,URINE (UA) NEGATIVE (NEGATIVE); LEUKOCYTE ESTERASE, URINE NEGATIVE (NEGATIVE); NITRITE,URINE NEGATIVE (NEGATIVE); OCCULT BLOOD,URINE TRACE-LYSE (NEGATIVE); PROTEIN,URINE NEGATIVE (NEGATIVE); UROBILINOGEN,URINE 0.2 (NORMAL) E.U./dL (NORMAL)
[2021-01-25 12:22] LABS: CLARITY,URINE CLEAR (CLEAR); RBC,URINE 0-5 /HPF (0-5); WBC,URINE 0-3 /HPF (0-3)
[2021-01-25 12:23] LABS: BACTERIA,URINE Rare /HPF (None Seen); SQUAMOUS EPITHELIAL CELL,UR RARE Squamous (<= Few)
[2021-01-25] MEDS ORDERED: GI COCKTAIL 120 ML BOTTLE PO PRN (12:26)
[2021-01-25] MEDS: ACETAMINOPHEN 325 MG TABLET PO PRN ×2 (12:27→21:50)
[2021-01-25] MEDS: PANTOPRAZOLE 40 MG TABLET PO SCH (12:27)
[2021-01-25] MEDS: MORPHINE 2 MG/ML CARPUJECT IVP PRN ×2 (12:38→14:38)
[2021-01-25] MEDS ORDERED: GI COCKTAIL 120 ML BOTTLE PO SCH (13:00)
[2021-01-25] MEDS: HYDROmorphone 1 MG/ML CARPUJECT IVP PRN ×3 (15:40→20:08)
[2021-01-25] MEDS: SODIUM CHLORIDE FLUSH 0.9% 10 ML SYRINGE IVP SCH (15:40)
[2021-01-25] MEDS ORDERED: LIDOCAINE PATCH 5% TOP PRN (16:48)
[2021-01-25] MEDS: KETOROLAC 15 MG/ML VIAL IVP PRN ×2 (17:16→23:50)
[2021-01-25] MEDS: SACCHAROMYCES BOULARDII 250 MG CAPSULE PO SCH (17:50)
[2021-01-25] MEDS: traZODone 50 MG TABLET PO SCH (20:08)
[2021-01-25] MEDS: guaiFENesin/CODEINE 5 ML UDC PO PRN (20:35)
[2021-01-25 20:51] LABS: ESTIMATED AVERAGE GLUCOSE 140 mg/dL (70-100); HEMOGLOBIN A1c% 6.5 % (4.27-6.07)
[2021-01-26] MEDS: HYDROmorphone 1 MG/ML CARPUJECT IVP PRN ×7 (00:35→18:26)
[2021-01-26] MEDS: SODIUM CHLORIDE FLUSH 0.9% 10 ML SYRINGE IVP SCH ×3 (00:45→16:20)
[2021-01-26] MEDS: guaiFENesin/CODEINE 5 ML UDC PO PRN ×3 (04:39→23:33)
[2021-01-26 05:20] LABS: BASOPHILS % (AUTO) 0.3 %; EOSINOPHILS # (AUTO) 0.1 10^3/uL (0.0-0.7); EOSINOPHILS % (AUTO) 0.9 %; HCT - HEMATOCRIT 33.1 % (42.0-52.0); HGB - HEMOGLOBIN 10.7 g/dL (14.0-18.0); LYMPHOCYTES # (AUTO) 1.2 10^3/uL (1.5-3.5); LYMPHOCYTES % (AUTO) 13.2 %; MEAN CORPUSCULAR HGB CONC 32.3 g/dL (32.0-36.0); MEAN CORPUSCULAR VOLUME 102.2 fL (80.0-94.0); MEAN PLATELET VOLUME 8.6 fL (7.4-11.4); MONOCYTES # (AUTO) 0.9 10^3/uL (0.0-1.0); MONOCYTES % (AUTO) 9.5 %; NEUTROPHILS # (AUTO) 6.8 10^3/uL (1.5-6.6); NEUTROPHILS % (AUTO) 74.9 %; PLT - PLATELET COUNT 219 10^3/uL (130-450); RED BLOOD COUNT 3.24 10^6/uL (4.70-6.10); RED CELL DISTRIBUTION WIDTH 12.3 % (12.0-15.0); WHITE BLOOD COUNT 9.1 x10^3/uL (4.8-10.8)
[2021-01-26 05:26] LABS: CALCIUM 7.9 mg/dL (8.5-10.3)
[2021-01-26] MEDS: PANTOPRAZOLE 40 MG TABLET PO SCH (05:53)
[2021-01-26] MEDS: KETOROLAC 15 MG/ML VIAL IVP PRN ×3 (06:12→23:34)
[2021-01-26] MEDS: ACETAMINOPHEN 325 MG TABLET PO PRN ×2 (06:55→20:56)
--- NOTE | 2021-01-26 08:07 | XRAY Report ---
PROCEDURE: Chest 1 View X-Ray INDICATIONS: fever, PNA, hypoxia TECHNIQUE: One view of the chest was acquired. COMPARISON: 01/21/2021 FINDINGS: Surgical changes and devices: None. Lungs and pleura: No pleural effusions or pneumothorax. Airspace opacities noted in the left lung ba se. Mediastinum: Mediastinal contours appear normal. Heart size is normal. Bones and chest wall: No suspicious bony lesions. Overlying soft tissues appear unremarkable. IMPRESSION: Left basilar pneumonia. Reviewed by: Gabby Alfaro MD, PhD on 01/26/2021 8:06 AM PDT Approved by: Gabby Alfaro MD, PhD on 01/26/2021 8:06 AM PDT Station ID: [id number]
[2021-01-26] MEDS: MULTIVITAMIN TABLET PO SCH (08:27)
[2021-01-26] MEDS: SACCHAROMYCES BOULARDII 250 MG CAPSULE PO SCH ×2 (08:27→17:09)
[2021-01-26] MEDS: CITALOPRAM HYDROBROMIDE 20 MG TABLET PO SCH (08:27)
[2021-01-26] MEDS: ENOXAPARIN 40 MG/0.4 ML SYRINGE SUBQ SCH (08:27)
[2021-01-26] MEDS: cefTRIAXone 2 GM in SODIUM CHLORIDE 0.9% MINIBAG 100 ML IV SCH (08:34)
[2021-01-26] MEDS: AZITHROMYCIN INJ 500 MG in SODIUM CHLORIDE 0.9% 250 ML IV SCH (09:31)
--- NOTE | 2021-01-26 11:07 | PROVIDER PROGRESS NOTE ---
Subjective - Prog Note Date Prog Note Date: 01/26/21 - Subjective Pt reports feeling: Improved Subjective: pt report his left posterior rib pain is improved and better controlled now. He felt better. pt had spot fever. he report he has no respiratory difficult, he can cough. Current Medications - Current Medications Current Medications: Active Medications Acetaminophen (Acetaminophen 325 Mg Tablet) 650 mg PO Q4HR PRN PRN Reason: Pain 1 to 4 Last Admin: 01/26/21 06:55 Dose: 650 mg Documented by: Citalopram Hydrobromide (Citalopram Hydrobromide 20 Mg Tablet) 40 mg PO DAILY [facility] Last Admin: 01/26/21 08:27 Dose: 40 mg Documented by: Enoxaparin Sodium (Enoxaparin 40 Mg/0.4 Ml Syringe) 40 mg SUBQ DAILY [facility] Last Admin: 01/26/21 08:27 Dose: 40 mg Documented by: Guaifenesin/Codeine Phosphate (Guaifenesin/Codeine 5 Ml Udc) 5 ml PO Q6HR PRN PRN Reason: Cough Last Admin: 01/26/21 04:39 Dose: 5 ml Documented by: Hydromorphone HCl (Hydromorphone 1 Mg/Ml Carpuject) 1 mg IVP Q2HR PRN PRN Reason: PAIN Last Admin: 01/26/21 09:29 Dose: 1 mg Documented by: Azithromycin 500 mg/ Sodium (Chloride) 250 mls @ 250 mls/hr IV DAILY [facility] Last Admin: 01/26/21 09:31 Dose: 250 mls/hr Documented by: Ceftriaxone Sodium 2 gm/ (Sodium Chloride) 100 mls @ 200 mls/hr IV DAILY [facility] Last Infusion: 01/26/21 09:26 Dose: Infused Documented by: Sodium Chloride (Normal Saline 0.9%) 1,000 mls @ 100 mls/hr IV .Q10H [facility] Stop: 01/27/21 07:59 Ketorolac Tromethamine (Ketorolac 15 Mg/Ml Vial) 15 mg IVP Q6HR PRN PRN Reason: PAIN Stop: 01/30/21 17:09 Last Admin: 01/26/21 06:12 Dose: 15 mg Documented by: Lidocaine (Lidocaine Patch 5%) 1 patch TOP DAILY PRN PRN Reason: PAIN Last Admin: 01/25/21 16:56 Dose: 1 patch Documented by: Multi-Ingredient Mouthwash/Gargle (Gi Cocktail 120 Ml Bottle) 30 ml PO Q4H PRN PRN Reason: Abdominal Pain Last Admin: 01/26/21 03:26 Dose: 30 ml Documented by: Multivitamins (Multivitamin Tablet) 1 tab PO DAILY [facility] Last Admin: 01/26/21 08:27 Dose: 1 tab Documented by: Ondansetron HCl (Ondansetron 4 Mg/2 Ml Vial) 4 mg IVP Q6HR PRN PRN Reason: Nausea / Vomiting Pantoprazole Sodium (Pantoprazole 40 Mg Tablet) 40 mg PO QDAC [facility] Last Admin: 01/26/21 05:53 Dose: 40 mg Documented by: Saccharomyces Boulardii (Saccharomyces Boulardii 250 Mg Capsule) 250 mg PO BIDWM [facility] Last Admin: 01/26/21 08:27 Dose: 250 mg Documented by: Sodium Chloride (Sodium Chloride Flush 0.9% 10 Ml Syringe) 10 ml IVP PRN PRN PRN Reason: NEEDED PER PROVIDER ORDERS Sodium Chloride (Sodium Chloride Flush 0.9% 10 Ml Syringe) 10 ml IVP 0100,0900,1700 [facility] Last Admin: 01/26/21 08:34 Dose: 10 ml Documented by: Trazodone HCl (Trazodone 50 Mg Tablet) 100 mg PO QPM [facility] Last Admin: 01/25/21 20:08 Dose: 100 mg Documented by: Citalopram [CeleXA] 40 mg PO DAILY 05/17/18 Omeprazole [PriLOSEC] 20 mg PO DAILY 05/17/18 traZODone [Desyrel] 100 mg PO DAILY PM 05/17/18 Multivitamin [Theragran] 1 tab PO DAILY 05/18/18 Objective - Vital Signs/Intake & Output Vital Signs: Vital Signs x48h Temp Pulse Resp BP Pulse Ox 01/26/21 09:36 37.3 C 01/26/21 07:35 38.3 C H 87 20 111/64 95 01/26/21 03:18 36.8 C 82 26 H 113/62 95 Intake & Output: Intake & Output 01/23/21 01/24/21 01/25/21 01/26/21 23:59 23:59 23:59 23:59 Intake Total 5786.667 2020 Output Total 600 575 Balance 5186.667 1446 - Objective General Appearance: positive: No acute distress, Alert. negative: Lethargic Eyes Bilateral: positive: Normal inspection, PERRL, No lid inflammation ENT: positive: ENT inspection nml, No signs of dehydration. negative: Purulent nasal drainage Neck: positive: Nml inspection, Trachea midline. negative: Thyromegaly, Tracheal deviation Respiratory: positive: Chest non-tender, No respiratory distress, Rhonchi, Other (left low chest with crackles lung sound) Cardiovascular: positive: Regular rate & rhythm, No murmur. negative: Tachycardia, Bradycardia, Systolic murmur, Diastolic murmur Peripheral Pulses: 2+ Radial (R), 2+ Radial (L) Abdomen: positive: Non-tender, Nml bowel sounds, No distention. negative: Tenderness Back: positive: Nml inspection. negative: CVA tenderness (R), CVA tenderness (L) Skin: positive: Color nml, Warm, Dry. negative: Cyanosis Extremities: positive: Non-tender, Full ROM, Nml appearance. negative: Calf tenderness Neurologic/Psychiatric: positive: Oriented x3, Motor nml, Sensation nml, Mood/affect nml. negative: Weakness, Sensory loss, Facial droop, Slurred/abnml speech, Depressed mood/affect - Lab Results Fish Bones: 01/26/21 04:49 01/26/21 04:49 Other Labs: Lab Results x24hrs 01/26/21 01/26/21 01/26/21 Range/Units 04:49 04:49 04:49 WBC 9.1 (4.8-10.8) x10^3/uL RBC 3.24 L (4.70-6.10) 10^6/uL Hgb 10.7 L (14.0-18.0) g/dL Hct 33.1 L (42.0-52.0) % MCV 102.2 H (80.0-94.0) fL MCH 33.0 H (27.0-31.0) pg MCHC 32.3 (32.0-36.0) g/dL RDW 12.3 (12.0-15.0) % Plt Count 219 (130-450) 10^3/uL MPV 8.6 (7.4-11.4) fL Neut # (Auto) 6.8 H (1.5-6.6) 10^3/uL Lymph # (Auto) 1.2 L (1.5-3.5) 10^3/uL [place] # (Auto) 0.9 (0.0-1.0) 10^3/uL Eos # (Auto) 0.1 (0.0-0.7) 10^3/uL Baso # (Auto) 0.0 (0.0-0.1) 10^3/uL Absolute Nucleated RBC 0.00 x10^3/uL Nucleated RBC % 0.0 /100WBC Sodium 137 (135-145) mmol/L Potassium 4.0 (3.5-5.0) mmol/L Chloride 105 (101-111) mmol/L Carbon Dioxide 25 (21-32) mmol/L Anion Gap 7.0 (6-13) BUN 18 (6-20) mg/dL Creatinine 1.0 (0.6-1.2) mg/dL Estimated GFR (MDRD) 73 L (>89) Glucose 154 H (70-100) mg/dL Estimat Average Glucose (70-100) mg/dL Hemoglobin A1c % (4.27-6.07) % Calcium 7.9 L (8.5-10.3) mg/dL Troponin I High Sens (2.3-19.7) ng/L C-Reactive Protein 13.5 H (0-1.0) mg/dL Urine Color Urine Clarity (CLEAR) Urine pH (5.0-7.5) PH Ur Specific [place] (1.002-1.030) Urine Protein (NEGATIVE) mg/dL Urine Glucose (UA) (NEGATIVE) mg/dL Urine Ketones (NEGATIVE) mg/dL Urine Occult Blood (NEGATIVE) Urine Nitrite (NEGATIVE) Urine Bilirubin (NEGATIVE) Urine Urobilinogen (NORMAL) E.U./dL Ur Leukocyte Esterase (NEGATIVE) Urine RBC (0-5) /HPF Urine WBC (0-3) /HPF Ur Squamous Epith Cells (<= Few) Urine Bacteria (None Seen) /HPF Urine Culture Comments Nasal Adenovirus (PCR) Nasal B. parapertussis DNA (PCR) Nasal Coronavir 229E PCR Nasal Coronavir HKU1 PCR Nasal Coronavir NL63 PCR Nasal Coronavir OC43 PCR Nasal Enterovir/Rhinovir PCR Nasal Influenza B PCR Nasal Influenza A PCR Nasal Parainfluen 1 PCR Nasal Parainfluen 2 PCR Nasal Parainfluen 3 PCR Nasal Parainfluen 4 PCR Nasal RSV (PCR) Nasal B.pertussis DNA PCR Nasal C.pneumoniae (PCR) [place] Human Metapneumo PCR Nasal M.pneumoniae (PCR) Nasal SARS-CoV-2 (PCR) 01/25/21 01/25/21 01/25/21 Range/Units 12:17 11:40 10:35 WBC (4.8-10.8) x10^3/uL RBC (4.70-6.10) 10^6/uL Hgb (14.0-18.0) g/dL Hct (42.0-52.0) % MCV (80.0-94.0) fL MCH (27.0-31.0) pg MCHC (32.0-36.0) g/dL RDW (12.0-15.0) % Plt Count (130-450) 10^3/uL MPV (7.4-11.4) fL Neut # (Auto) (1.5-6.6) 10^3/uL Lymph # (Auto) (1.5-3.5) 10^3/uL [place] # (Auto) (0.0-1.0) 10^3/uL Eos # (Auto) (0.0-0.7) 10^3/uL Baso # (Auto) (0.0-0.1) 10^3/uL Absolute Nucleated RBC x10^3/uL Nucleated RBC % /100WBC Sodium (135-145) mmol/L Potassium (3.5-5.0) mmol/L Chloride (101-111) mmol/L Carbon Dioxide (21-32) mmol/L Anion Gap (6-13) BUN (6-20) mg/dL Creatinine (0.6-1.2) mg/dL Estimated GFR (MDRD) (>89) Glucose (70-100) mg/dL Estimat Average Glucose (70-100) mg/dL Hemoglobin A1c % (4.27-6.07) % Calcium (8.5-10.3) mg/dL Troponin I High Sens 3.0 (2.3-19.7) ng/L C-Reactive Protein (0-1.0) mg/dL Urine Color YELLOW Urine Clarity CLEAR (CLEAR) Urine pH 6.0 (5.0-7.5) PH Ur Specific [place] <=1.005 (1.002-1.030) Urine Protein NEGATIVE (NEGATIVE) mg/dL Urine Glucose (UA) NEGATIVE (NEGATIVE) mg/dL Urine Ketones NEGATIVE (NEGATIVE) mg/dL Urine Occult Blood TRACE-LYSE (NEGATIVE) Urine Nitrite NEGATIVE (NEGATIVE) Urine Bilirubin NEGATIVE (NEGATIVE) Urine Urobilinogen 0.2 (NORMAL) (NORMAL) E.U./dL Ur Leukocyte Esterase NEGATIVE (NEGATIVE) Urine RBC 0-5 (0-5) /HPF Urine WBC 0-3 (0-3) /HPF Ur Squamous Epith Cells RARE Squamous (<= Few) Urine Bacteria Rare (None Seen) /HPF Urine Culture Comments NOT INDICATED Nasal Adenovirus (PCR) NOT DETECTED Nasal B. parapertussis DNA (PCR) NOT DETECTED Nasal Coronavir 229E PCR NOT DETECTED Nasal Coronavir HKU1 PCR NOT DETECTED Nasal Coronavir NL63 PCR NOT DETECTED Nasal Coronavir OC43 PCR NOT DETECTED Nasal Enterovir/Rhinovir PCR NOT DETECTED Nasal Influenza B PCR NOT DETECTED Nasal Influenza A PCR NOT DETECTED Nasal Parainfluen 1 PCR NOT DETECTED Nasal Parainfluen 2 PCR NOT DETECTED Nasal Parainfluen 3 PCR NOT DETECTED Nasal Parainfluen 4 PCR NOT DETECTED Nasal RSV (PCR) NOT DETECTED Nasal B.pertussis DNA PCR NOT DETECTED Nasal C.pneumoniae (PCR) NOT DETECTED [place] Human Metapneumo PCR NOT DETECTED Nasal M.pneumoniae (PCR) NOT DETECTED Nasal SARS-CoV-2 (PCR) NOT DETECTED 01/25/21 Range/Units 07:34 WBC (4.8-10.8) x10^3/uL RBC (4.70-6.10) 10^6/uL Hgb (14.0-18.0) g/dL Hct (42.0-52.0) % MCV (80.0-94.0) fL MCH (27.0-31.0) pg MCHC (32.0-36.0) g/dL RDW (12.0-15.0) % Plt Count (130-450) 10^3/uL MPV (7.4-11.4) fL Neut # (Auto) (1.5-6.6) 10^3/uL Lymph # (Auto) (1.5-3.5) 10^3/uL [place] # (Auto) (0.0-1.0) 10^3/uL Eos # (Auto) (0.0-0.7) 10^3/uL Baso # (Auto) (0.0-0.1) 10^3/uL Absolute Nucleated RBC x10^3/uL Nucleated RBC % /100WBC Sodium (135-145) mmol/L Potassium (3.5-5.0) mmol/L Chloride (101-111) mmol/L Carbon Dioxide (21-32) mmol/L Anion Gap (6-13) BUN (6-20) mg/dL Creatinine (0.6-1.2) mg/dL Estimated GFR (MDRD) (>89) Glucose (70-100) mg/dL Estimat Average Glucose 140 H (70-100) mg/dL Hemoglobin A1c % 6.5 H (4.27-6.07) % Calcium (8.5-10.3) mg/dL Troponin I High Sens (2.3-19.7) ng/L C-Reactive Protein (0-1.0) mg/dL Urine Color Urine Clarity (CLEAR) Urine pH (5.0-7.5) PH Ur Specific [place] (1.002-1.030) Urine Protein (NEGATIVE) mg/dL Urine Glucose (UA) (NEGATIVE) mg/dL Urine Ketones (NEGATIVE) mg/dL Urine Occult Blood (NEGATIVE) Urine Nitrite (NEGATIVE) Urine Bilirubin (NEGATIVE) Urine Urobilinogen (NORMAL) E.U./dL Ur Leukocyte Esterase (NEGATIVE) Urine RBC (0-5) /HPF Urine WBC (0-3) /HPF Ur Squamous Epith Cells (<= Few) Urine Bacteria (None Seen) /HPF Urine Culture Comments Nasal Adenovirus (PCR) Nasal B. parapertussis DNA (PCR) Nasal Coronavir 229E PCR Nasal Coronavir HKU1 PCR Nasal Coronavir NL63 PCR Nasal Coronavir OC43 PCR Nasal Enterovir/Rhinovir PCR Nasal Influenza B PCR Nasal Influenza A PCR Nasal Parainfluen 1 PCR Nasal Parainfluen 2 PCR Nasal Parainfluen 3 PCR Nasal Parainfluen 4 PCR Nasal RSV (PCR) Nasal B.pertussis DNA PCR Nasal C.pneumoniae (PCR) [place] Human Metapneumo PCR Nasal M.pneumoniae (PCR) Nasal SARS-CoV-2 (PCR) ABX Reporting Has patient been on IV antibiotics over the past 48 hours?: Yes Sepsis Event Note (H) - Evaluation Current Stage of Sepsis: Sepsis Possible source of Sepsis: positive: Pulmonary - Sepsis Criteria Sepsis Criteria: Recorded Temperature greater than 38.3C or Less than 36C, Respiratory: Increasing oxygen requirements Assessment/Plan - Problem List (1) Sepsis Impression: /pt has fever, pt need oxygen support now, pt was found to have pneumonia. Preliminary blood culture is negative for bacteremia, new CXR reveal left low pneumonia without showing of pulmonary edema or pleural effusion will continue antibiotics, IVF, supplement of O2 as needed, continue ovidio sign monitor, lab monitor, (2) Pneumonia Conclusion/Plan: 01/26 CXR show pt still has left low lobe pneumonia, now pt need O2 supplement to support his O2 sats, will continue antibiotics, Continue Mucinex, Continue supplemental oxygen as needed. pt present cough, Patient had slightly elevated WBC, desat on room air, left rib pain, CT show left lower lobe pneumonia. We will treat the patient with antibiotics, Pain control, Intravenous IV fluids, Blood culture is pending. Patient has no fever in the ER. (3) Rib pain on left side Conclusion/Plan: 62, Patient report he is left side posterior rib pain is improved. CTA, chest x-ray show no bone lesion or fracture. Troponin test is negative for acute DC. CTA did not show PE. We will continue treat with antibiotics for patient's left lower lobe pneumonia, Continue pain control with Dilaudid, Toradol, lidocaine patch as needed. CTA show left lower lobe pneumonia without PE. We will check troponin and followup, we will treat pt with antibiotics for pneumonia, pain control with morphine as needed. (4)diabetes 64, Patient's A1C is 6.5, and slight elevated glucose level. This is the first diagnosis of diabetic for patient. We will order education for patient about a diabetic. Because patient had CTA, CT with contrast for abdomen pelvis, Patient cannot prescribed Metformin now. We will start with insulin, sliding scale, hypoglycemia protocol. (5) GERD (gastroesophageal reflux disease) Conclusion/Plan: pt hx of GERD, resume home Protonix, add GI cocktail as needed. (6) Dehydration Conclusion/Plan: Patient had elevated BUN, Clinically pt show had some dehydration. continue intravenous IV fluids, vital and lab monitor (7) Depression Conclusion/Plan: Stable, will resume home Celexa (8) Sleep apnea Conclusion/Plan: Patient has a history of sleep apnea, we will continue CPAP for pt. (2) Pneumonia Impression: (2) Pneumonia Conclusion/Plan: pt present cough, Patient had slightly elevated WBC, desat on room air, left rib pain, CT show left lower lobe pneumonia. We will treat the patient with antibiotics, Pain control, Intravenous IV fluids, Blood culture is pending. Patient has no fever in the ER. (3) Rib pain on left side Conclusion/Plan: CTA show left lower lobe pneumonia without PE. We will check troponin and followup, we will treat pt with antibiotics for pneumonia, pain control with morphine as needed. (4) GERD (gastroesophageal reflux disease) Conclusion/Plan: pt hx of GERD, resume home Protonix, add GI cocktail as needed. (5) Dehydration Conclusion/Plan: Patient had elevated BUN, Clinically pt show had some dehydration. continue intravenous IV fluids, vital and lab monitor (6) Depression Conclusion/Plan: Stable, will resume home Celexa (7) Sleep apnea Conclusion/Plan: Patient has a history of sleep apnea, we will continue CPAP for pt.
[2021-01-26] MEDS: SODIUM CHLORIDE 0.9% 1,000 ML IV SCH ×2 (11:41→22:52)
[2021-01-26] MEDS: INSULIN ASPART 300 UNIT/3 ML PEN SUBQ SCH ×3 (11:46→20:58)
[2021-01-26] MEDS: CYCLOBENZAPRINE 10 MG TABLET PO PRN (13:42)
[2021-01-26] MEDS ORDERED: MORPHINE 2 MG/ML CARPUJECT IVP STA (19:26)
[2021-01-26] MEDS: traZODone 50 MG TABLET PO SCH (20:57)
[2021-01-27] MEDS: SODIUM CHLORIDE FLUSH 0.9% 10 ML SYRINGE IVP SCH ×2 (01:59→08:45)
[2021-01-27] MEDS: KETOROLAC 15 MG/ML VIAL IVP PRN (05:47)
[2021-01-27] MEDS: PANTOPRAZOLE 40 MG TABLET PO SCH (05:50)
[2021-01-27 06:35] LABS: BASOPHILS % (AUTO) 0.4 %; EOSINOPHILS # (AUTO) 0.1 10^3/uL (0.0-0.7); EOSINOPHILS % (AUTO) 1.1 %; HCT - HEMATOCRIT 32.9 % (42.0-52.0); HGB - HEMOGLOBIN 10.9 g/dL (14.0-18.0); LYMPHOCYTES # (AUTO) 0.8 10^3/uL (1.5-3.5); LYMPHOCYTES % (AUTO) 7.9 %; MEAN CORPUSCULAR HEMOGLOBIN 32.7 pg (27.0-31.0); MEAN CORPUSCULAR HGB CONC 33.1 g/dL (32.0-36.0); MEAN CORPUSCULAR VOLUME 98.8 fL (80.0-94.0); MEAN PLATELET VOLUME 8.5 fL (7.4-11.4); MONOCYTES # (AUTO) 0.9 10^3/uL (0.0-1.0); MONOCYTES % (AUTO) 8.2 %; NEUTROPHILS # (AUTO) 8.5 10^3/uL (1.5-6.6); PLT - PLATELET COUNT 218 10^3/uL (130-450); RED BLOOD COUNT 3.33 10^6/uL (4.70-6.10); RED CELL DISTRIBUTION WIDTH 12.4 % (12.0-15.0); WHITE BLOOD COUNT 10.5 x10^3/uL (4.8-10.8)
[2021-01-27 06:53] LABS: CREATININE 0.8 mg/dL (0.6-1.2); CRP - C-REACTIVE PROTEIN 19.6 mg/dL (0-1.0); POTASSIUM 3.8 mmol/L (3.5-5.0)
[2021-01-27] MEDS: INSULIN ASPART 300 UNIT/3 ML PEN SUBQ SCH ×2 (08:35→12:01)
[2021-01-27] MEDS: CITALOPRAM HYDROBROMIDE 20 MG TABLET PO SCH (08:36)
[2021-01-27] MEDS: MULTIVITAMIN TABLET PO SCH (08:36)
[2021-01-27] MEDS: ACETAMINOPHEN 325 MG TABLET PO PRN (08:36)
[2021-01-27] MEDS: CYCLOBENZAPRINE 10 MG TABLET PO PRN (08:36)
[2021-01-27] MEDS: ENOXAPARIN 40 MG/0.4 ML SYRINGE SUBQ SCH (08:37)
[2021-01-27] MEDS: cefTRIAXone 2 GM in SODIUM CHLORIDE 0.9% MINIBAG 100 ML IV SCH (08:37)
[2021-01-27] MEDS: SACCHAROMYCES BOULARDII 250 MG CAPSULE PO SCH (08:58)
[2021-01-27] MEDS ORDERED: polyethylene glycoL 3350 17 GM PACKET PO SCH (09:00)
[2021-01-27] MEDS: AZITHROMYCIN INJ 500 MG in SODIUM CHLORIDE 0.9% 250 ML IV SCH (09:33)
--- NOTE | 2021-01-27 14:13 | DISCHARGE SUMMARY ---
Discharge Summary Admit Date: 01/25/21 Discharge Date: 01/27/21 Discharging Provider: Kerry Corbin Primary Care Provider: Chris Hope Code Status: Attempt Resuscitation Condition at Discharge: Stable Discharge Disposition: 01 Home, Self Care - DIAGNOSES Admission Diagnoses: This is a 71-year-old man with a PMH significant for Hypertension, sleep apnea, GERD, cholelithiasis, Chronic vision loss, depression, osteoarthritis, prostate cancer who present ER complain of cough, left side viola pain. Pt visited ER at 01/21, in which pt was diagnosis of viral syndrome. Covid 19 test was negative. pt report he continue to have low degree of fever, nonproductive cough, left- sided posterior rib cage pain which was gradual onset over the past couple days. The pain was sharp, constant. Patient report that his pain is worsening with deep breath and he fear he is unable to take deep breath because of the pain. pt denies nausea, vomiting or anterior chest pain. EMS reported his oxygen desaturated at middle of [address] to ER[address] In ER, Patient is afebrile, he had 91% sat in the room air. CTA of chest show no PE, Mild to moderate left low lobe pneumonia. CT of abdomen/pelvis Show mild to moderate left lower lobe pneumonia without pleural effusion, Kidneys demonstrate normal size and enhancement, without hydronephrosis. Routine laboratory test show patient had mildly elevated WBC at 12.4, BUN is 23. Discussed the care goal with patient, patient request DNR - HPI History of Present Illness: Admitted and placed on Rocephin and azithromycin IV. Pain was also managed with Dilaudid and oral [place]. Because his pain persisted Toradol and subsequently lidocaine was added. The following day the patient had a temperature As high as 39.2 C and was mildly hypoxic thus he is hospital stay was extended for another day. Antibiotic regimen was continued and he was placed on supplemental oxygen. This treatment was continued for another 24 hours. The next day which was 01/27/21 the patient appeared much more comfortable. He rated his worst pain at 5 out of 10 scale. He was weaned off oxygen with his oxygen saturation maintaining about 94 to 95%. With ambulation down the [facility] floor he is oxygen saturation dropped to 91% but then readily improved to 95% with rest and off oxygen. Consequently he was being discharged home with a prescription of Augmentin 875/125 mg twice daily for 5 days. He was also given an incentive spirometer and encouraged to use it as often as possible. He was also prescribed [place] 7.5/325 to take 1 tablet every 6 hours as needed. He was prescribed a total of 20 tablets. He may also use Robitussin as needed. He may follow-up with his primary care physician in 7 days or as needed. The patient was discharged in stable condition. - ALLERGIES Allergies/Adverse Reactions: Allergies Allergy/AdvReac Type Severity Reaction Status Date / Time No Known Drug Allergies Allergy Verified 01/25/21 06:57 - MEDICATIONS Home Medications: Ambulatory Orders Medication Instructions Recorded Confirmed Citalopram [CeleXA] 40 mg PO DAILY 05/17/18 01/25/21 Omeprazole [PriLOSEC] 20 mg PO DAILY 05/17/18 01/25/21 traZODone [Desyrel] 100 mg PO DAILY PM 05/17/18 01/25/21 Multivitamin [Theragran] 1 tab PO DAILY 05/18/18 01/25/21 Amox/Clav 875/125 [Augmentin 1 tablet PO Q12H 5 Days #10 tablet 01/27/21 875/125 Tab] HYDROcodone/ACET 7.5/325 [[place] 1 each PO Q6H PRN 5 Days #20 tablet 01/27/21 7.5/325] - PHYSICAL EXAM AT DISCHARGE General Appearance: positive: Alert, Moderate distress Eyes Bilateral: positive: PERRL, EOMI ENT: positive: No signs of dehydration Neck: positive: No JVD, Trachea midline Respiratory: positive: No respiratory distress, Other (Coarse breath sounds). negative: Wheezes, Rales, Rhonchi Cardiovascular: positive: Regular rate & rhythm, No murmur Abdomen: positive: Non-tender, Nml bowel sounds. negative: Guarding, Rebound Back: positive: Nml inspection Skin: positive: Color nml, No rash, Warm, Dry Extremities: positive: Non-tender, Full ROM, Nml appearance, No pedal edema Neurologic/Psychiatric: positive: Oriented x3, Sensation nml, Mood/affect nml - LABS Result Diagrams: 01/27/21 06:15 01/27/21 06:15 - SEPSIS Current Stage of Sepsis: Sepsis Possible source of Sepsis: Pulmonary Sepsis Criteria: Recorded Temperature greater than 38.3C or Less than 36C, Respiratory: Increasing oxygen requirements - TIME SPENT Time Spent in Discharge (Minutes): 25
--- NOTE | 2021-01-27 14:19 | Discharge Plan ---
Discharge Plan Problem Reviewed?: Yes Disposition: Home, Self Care Condition: Stable Prescriptions: Amox/Clav 875/125 [Augmentin 875/125 Tab] 1 tablet PO Q12H 5 Days #10 tablet HYDROcodone/ACET 7.5/325 [[place] 7.5/325] 1 each PO Q6H PRN 5 Days #20 tablet PRN Reason: Pain Diet: Regular Activity Restrictions: Activity as Tolerated Shower Restrictions: No Driving Restrictions: No Weight Bearing: Full Weight Health Concerns: You presented to the emergency department on 01/25/21 with difficulty breathing. Work-up included a CT scan of the chest, abdomen and pelvis. This showed that you had mild to moderate left lower lobe pneumonia. You were admitted and started on IV medications which included Rocephin and wade thromycin which he took for 3 days. He had significant pleuritic pain as a result of the pneumonia which was managed with pain medications. Your pain has significantly improved by today 01/27/21 and your oxygen saturation is maintaining so you are being discharged home weight [place] pain medication to take as needed and a prescription of Augmentin 875/125 twice daily x5 days. Given an incentive spirometer and are encouraged to use it as often as possible. You may also use Robitussin as needed You may follow-up with your primary care physician within 7 days and or as needed. Plan of Treatment: You presented to the emergency department on 01/25/21 with difficulty breathing. Work-up included a CT scan of the chest, abdomen and pelvis. This showed that you had mild to moderate left lower lobe pneumonia. You were admitted and started on IV medications which included Rocephin and azithromycin which he took for 3 days. He had significant pleuritic pain as a result of the pneumonia which was managed with pain medications. Your pain has significantly improved by today 01/27/21 and your oxygen saturation is maintaining so you are being discharged home weight [place] pain medication to take as needed and a prescription of Augmentin 875/125 twice daily x5 days. Given an incentive spirometer and are encouraged to use it as often as possible. You may also use Robitussin as needed You may follow-up with your primary care physician within 7 days and or as needed. Care Goals: You presented to the emergency department on 01/25/21 with difficulty breathing. Work-up included a CT scan of the chest, abdomen and pelvis. This showed that you had mild to moderate left lower lobe pneumonia. You were admitted and started on IV medications which included Rocephin and azithromycin which he took for 3 days. He had significant pleuritic pain as a result of the pneumonia which was managed with pain medications. Your pain has significantly improved by today 01/27/21 and your oxygen saturation is maintaining so you are being discharged home weight [place] pain medication to take as needed and a prescription of Augmentin 875/125 twice daily x5 days. Given an incentive spirometer and are encouraged to use it as often as possible. You may also use Robitussin as needed You may follow-up with your primary care physician within 7 days and or as n eeded. Assessment: The above plan was explained to you. You expressed understanding and are in agreement. No Smoking: If you smoke, Please STOP! Call for help. Follow-up with: Chris Hope ARNP [Primary Care Provider] -
[2021-01-27 16:23] VITALS: BP 127/67
== END 2021-01-27 16:41 | disposition home or self-care (01) | DRG 871 ==
LOC: EDUNIT# → EDBD → ED 06:46 → MS2 10:57 → OBSVTOIN 01-26 10:39
PROVIDERS: ADMIT Nurse Practitioner Gerontology; ATTEND Internal Medicine
DX: A41.9 Sepsis, unspecified organism (principal); Z20.822 Contact with and (suspected) exposure to COVID-19; J18.9 Pneumonia, unspecified organism; R07.81 Pleurodynia; I10 Essential (primary) hypertension; G47.30 Sleep apnea, unspecified; K21.9 Gastro-esophageal reflux disease without esophagitis; F32.9 Major depressive disorder, single episode, unspecified; Z85.46 Personal history of malignant neoplasm of prostate; Z66 Do not resuscitate; Z87.891 Personal history of nicotine dependence; E86.0 Dehydration; E11.9 Type 2 diabetes mellitus without complications
CPT/HCPCS: 36415; 71045; 71046; 71275; 74177; 80048; 80053; 81001; 83036; 83605; 83690; 84484; 85025; 85379; 86140; 87040; 87631; 94660; 96365; 96366; 96367; 96368; 96372; 96375; 96376; 99285; A9270; G0378; J1170; J1650; J8499; Q9967; 0202U; 81003; 87086

== ENCOUNTER 2021-05-08 09:50 | Outpatient (CLI) | payer MEDICARE, OTHER ==
[2021-05-08 10:20] VITALS: BP 125/71
--- NOTE | 2021-05-08 10:20 | SLEEP CARE CONSULTATION ---
Information from patient questionnaire entered by Janine Gonzalez. I have reviewed and concur with the information entered by Janine Gonzalez. This document represents the service I personally performed and the decisions made by , Nirmala Tripathi ARNP. History of Present Illness Service Date and Time: 05/08/2021 0950 Previous diagnosis: Mild, Obstructive Sleep Apnea-Hypopnea Syndrome AHI: 5.2 (in 2015) Reason for follow up: annual (last seen 03/2020) Equipment type: CPAP Equipment obtained from: [facility] (getting supplies as needed) Mask style: Nasal Mask brand: Resmed (over the nose) Backup mask available: No (will keep old mask when replaced ) Last cushion change: 2 weeks Prior sleep studies: Yes Year and Where: 2016 [facility] Sleep Type of Sleep Study: Home sleep study HPI additional information: BRAYAN KIM was diagnosed to have mild, AHI 5.2, obstructive sleep apnea- hypopnea syndrome and returned today for CPAP therapy annual follow-up. CPAP Compliance Data - Data Reviewed with Patient Average duration of nightly device use: 8 hr 6 min Compliance rate %: 96 (180 days) Current pressure setting (cmH2O): 5-10 Humidity settin Average residual AHI: 2.1 Subjective Missed days of use due to: reports: illness (pneumonia and in hospital), travel Patient concerns: reports: air blowing in eyes (occasionally). denies: aerophag ia, mask discomfort, mask leak noise, condensation in mask/hose, nasal congestion, dry mouth, nose, throat, epistaxis, other Observed to snore while using device: No Current pressure setting perceived as: comfortable On therapy, patient: reports: sleeping better, awakening more refreshed, being more awake and alert during the day, more rested overall. denies: drowsiness while driving Initial [place] Sleepiness Scale score: 9 (in 2017) Current [place] Sleepiness Scale score: 6 Allergies and Home Medications Home medication list reviewed: Yes (no changes) Review of Systems Review of systems same as previous: Yes (no changes) Physical Exam Blood Pressure: 125/71 Cuff size: wrist Heart Rate: 69 O2 Saturation: 96 Height: 5 ft 9 in Weight: 173 lb Weight change since last visit: 7 pound loss Body Mass Index: 25.5 BMI Classification: Overweight Impression and Plan 1. Obstructive Sleep Apnea-Hypopnea Syndrome, mild, with good treatment compliance and good apnea control. On CPAP therapy, the patient has better sleep quality and is more rested overall. Patient is very satisfied with current therapy and pressure. Patient has lost weight. Currently patients BMI is 25.5. Obesity increases the risk of apnea, CPAP pressure requirements and overall health risks especially cardiovascular and diabetes. Thus patient is advised to continue to lose weight. Weight loss can be done with reducing portion size, reducing refined foods and balancing content with vegetables, fruit and protein. The patient's CPAP pressure range should accommodate some weight loss. Symptoms to report for additional pressure adjustment discussed. Patient's apnea severity and rationale for treatment to reduce apnea, improve sleep quality and reduce cardiovascular and cerebrovascular events was reviewed. I also reviewed the benefit of consistent device use of CPAP for cardiac disease and gastric reflux. * Continue auto CPAP pressure at 5-10 cmH2O * Notify me if snoring with mask or feeling that the pressure is too much or too little * Continue to try to lose weight * Call this office if any problems using CPAP * Return for follow up in 1 year, or sooner if concerns arise Counseling Topics: Spare mask, Weight loss health impact Visit Type: In Office Time Spent with Patient (minutes): 14 Provider Statement: I spent 100% of the Face to Face Visit with the patient with greater than 50% spent counseling the patient and coordination of care.
== END 2021-05-08 09:51 | disposition home or self-care (01) ==
LOC: SC 09:50
PROVIDERS: ATTEND Nurse Practitioner Family
DX: G47.33 Obstructive sleep apnea (adult) (pediatric) (principal); E66.3 Overweight; Z68.25 Body mass index [BMI] 25.0-25.9, adult
CPT/HCPCS: 99212; G0463

== ENCOUNTER 2022-03-01 11:15 | Outpatient (CLI) | payer MEDICARE, OTHER ==
[2022-03-01 17:55] LABS: BASOPHILS # (AUTO) 0.1 10^3/uL (0.0-0.1); BASOPHILS % (AUTO) 1.3 %; EOSINOPHILS # (AUTO) 0.2 10^3/uL (0.0-0.7); EOSINOPHILS % (AUTO) 3.3 %; HCT - HEMATOCRIT 42.8 % (42.0-52.0); HGB - HEMOGLOBIN 14.2 g/dL (14.0-18.0); LYMPHOCYTES # (AUTO) 1.7 10^3/uL (1.5-3.5); LYMPHOCYTES % (AUTO) 35.1 %; MEAN CORPUSCULAR HEMOGLOBIN 32.5 pg (27.0-31.0); MEAN CORPUSCULAR HGB CONC 33.2 g/dL (32.0-36.0); MEAN CORPUSCULAR VOLUME 97.9 fL (80.0-94.0); MEAN PLATELET VOLUME 9.3 fL (7.4-11.4); MONOCYTES # (AUTO) 0.5 10^3/uL (0.0-1.0); MONOCYTES % (AUTO) 11.3 %; NEUTROPHILS # (AUTO) 2.3 10^3/uL (1.5-6.6); NEUTROPHILS % (AUTO) 48.2 %; PLT - PLATELET COUNT 196 10^3/uL (130-450); RED BLOOD COUNT 4.37 10^6/uL (4.70-6.10); RED CELL DISTRIBUTION WIDTH 12.5 % (12.0-15.0); WHITE BLOOD COUNT 4.8 x10^3/uL (4.8-10.8)
[2022-03-01 18:05] LABS: ALBUMIN 4.1 g/dL (3.2-5.5); ALBUMIN/GLOBULIN RATIO 1.2 (1.0-2.2); ALKALINE PHOSPHATASE 88 IU/L (42-121); ALT ALANINE AMINOTRANSFERASE 18 IU/L (10-60); AST ASPARTATE AMINOTRANSFERASE 21 IU/L (10-42); BILIRUBIN,TOTAL 0.6 mg/dL (0.2-1.0); BUN - BLOOD UREA NITROGEN 19 mg/dL (6-20); CALCIUM 9.4 mg/dL (8.5-10.3); CARBON DIOXIDE - CO2 26 mmol/L (21-32); CHLORIDE 104 mmol/L (101-111); CHOL/HDL RATIO 3.1 (<5.0); CHOLESTEROL 136 mg/dL; CREATININE 0.9 mg/dL (0.6-1.2); GFR - MDRD 82 (>89); GLUCOSE 131 mg/dL (70-100); HDL CHOLESTEROL 44 mg/dL; LDL CHOLESTEROL,CALCULATED 74 mg/dL; LDL/HDL RATIO 1.7 (<3.6); POTASSIUM 4.4 mmol/L (3.5-5.0); SODIUM 138 mmol/L (135-145); TOTAL PROTEIN 7.4 g/dL (6.7-8.2); TRIGLYCERIDES 92 mg/dL; VLDL CHOLESTEROL 18 mg/dL
[2022-03-01 18:15] LABS: THYROID STIMULATING HORMONE 0.79 uIU/mL (0.34-5.60)
[2022-03-01 20:34] LABS: ESTIMATED AVERAGE GLUCOSE 140 mg/dL (70-100); HEMOGLOBIN A1c% 6.5 % (4.27-6.07)
== END 2022-03-01 11:16 | disposition home or self-care (01) ==
LOC: LAB.N 11:15
PROVIDERS: ATTEND Nurse Practitioner Family
DX: E66.3 Overweight (principal); K21.9 Gastro-esophageal reflux disease without esophagitis; Z13.220 Encounter for screening for lipoid disorders; Z13.1 Encounter for screening for diabetes mellitus; F32.A Depression, unspecified
CPT/HCPCS: 36415; 80053; 80061; 83036; 83721; 84443; 85025

== ENCOUNTER 2022-05-28 11:09 | Outpatient (CLI) | payer MEDICARE, OTHER ==
--- NOTE | 2022-05-28 11:30 | SLEEP CARE CONSULTATION ---
Information from patient questionnaire entered by David Soto. I have reviewed and concur with the information entered by David Soto. This document represents the service I personally performed and the decisions made by me, Nirmala Tripathi ARNP. History of Present Illness Service Date and Time: 05/28/2022 1109 Previous diagnosis: Mild, Obstructive Sleep Apnea-Hypopnea Syndrome AHI: 5.2 (in 2016) Reason for follow up: annual (LAST SEEN 05/08/21) Equipment type: CPAP (RESMED) Equipment obtained from: [employer] (getting supplies as needed) Mask style: Nasal (over the nose) Mask brand: Resmed Backup mask available: No (will keep mask when he gets replacement) Last cushion change: 2 days Prior sleep studies: Yes Year and Where: [address] [place] [address] Sleep Type of Sleep Study: Home sleep study HPI additional information: BRAYAN KIM was diagnosed to have mild, AHI 5.2, obstructive sleep apnea- hypopnea syndrome and returned today for CPAP therapy annual follow-up. Sleep Study - Results Type of Sleep Study: Home sleep study Prior sleep studies: Yes Year and Where: [address] [place] [address] Sleep CPAP Compliance Data - Data Reviewed with Patient Average duration of nightly device use: 7 hours 59 minutes Compliance rate %: 93 (180/180 days used) Current pressure setting (cmH2O): 5-10 Average residual AHI: 1.4 Central apnea: 0.5 Obstructive apnea: 0.7 Average large leak: 6.3 L/min Subjective Patient concerns: reports: mask leak noise. denies: aerophagia, mask discomfort, air blowing in eyes, condensation in mask/hose, nasal congestion, dry mouth, nose, throat, epistaxis Observed to snore while using device: Yes (occasional) Current pressure setting perceived as: comfortable On therapy, patient: reports: sleeping better, awakening more refreshed, being more awake and alert during the day, more rested overall. denies: drowsiness while driving Initial [place] Sleepiness Scale score: 9 (in 2017) Current [place] Sleepiness Scale score: 9 (05/28/22) Allergies and Home Medications Drug allergies reviewed: Yes (NKDA) Home medication list reviewed: Yes (no changes) Allergy and home medication list: Allergies No Known Drug Allergies Allergy (Verified 01/25/21 06:57) Review of Systems Review of systems same as previous: Yes (hip replacement 11/12/21) Physical Exam Vital signs obtained and entered by: MAYRA MARTIN Blood Pressure: 120/80 (right arm ) Cuff size: regular Heart Rate: 76 O2 Saturation: 95 Height: 5 ft 9 in Weight: 187 lb Body Mass Index: 27.6 BMI Classification: Overweight Impression and Plan 1. Obstructive Sleep Apnea-Hypopnea Syndrome, mild, with good treatment compliance and good apnea control. On CPAP therapy, the patient has better sleep quality and is more rested overall. Patient has significant improvement of their sleep apnea and are satisfied with current CPAP therapy. Patient denies problems with oral dryness, nasal congestion, epistaxis, skin irritation or aerophagia. Patient's apnea severity and rationale for treatment to reduce apnea, improve sleep quality and reduce cardiovascular and cerebrovascular events was reviewed. I also reviewed the benefit of consistent device use of CPAP for cardiac disease and gastric reflux. I will update his supply prescription and follow up with him next year. 2. Overweight, unspecified. Patient advised to try to lose weight. He has a BMI of 27.6. He voiced understanding and agreement. * Continue auto CPAP pressure at 5-10 cmH2O * Update supplies * Notify me if snoring with mask or feeling that the pressure is too much or too little * Attempt to lose weight * Call this office if any problems using CPAP * Return for follow up in 1 year, or sooner if concerns arise Counseling Topics: Spare mask, Weight loss health impact Visit Type: In Office Time Spent with Patient (minutes): 21 Provider Statement: I spent 100% of the Face to Face Visit with the patient with greater than 50% spent counseling the patient and coordination of care.
[2022-05-28 11:31] VITALS: BP 120/80
== END 2022-05-28 11:10 | disposition home or self-care (01) ==
LOC: SC 11:09
PROVIDERS: ATTEND Nurse Practitioner Family
DX: G47.33 Obstructive sleep apnea (adult) (pediatric) (principal); E66.3 Overweight; Z68.27 Body mass index [BMI] 27.0-27.9, adult
CPT/HCPCS: 99213; G0463; 99212

== ENCOUNTER 2022-09-04 10:25 | Outpatient (CLI) | payer MEDICARE, OTHER ==
[2022-09-04 12:18] LABS: CALCIUM 9.2 mg/dL (8.5-10.3); CREATININE 0.9 mg/dL (0.6-1.2); POTASSIUM 3.9 mmol/L (3.5-5.0)
[2022-09-04 13:20] LABS: ESTIMATED AVERAGE GLUCOSE 140 mg/dL (70-100); HEMOGLOBIN A1c% 6.5 % (4.27-6.07)
== END 2022-09-04 10:26 | disposition home or self-care (01) ==
LOC: LAB.N 10:25
PROVIDERS: ATTEND Nurse Practitioner Family
DX: R73.03 Prediabetes (principal)
CPT/HCPCS: 36415; 80048; 83036

== ENCOUNTER 2023-02-06 09:14 | Outpatient (CLI) | payer MEDICARE, OTHER ==
--- NOTE | 2023-02-06 09:51 | SLEEP CARE CONSULTATION ---
Information from patient questionnaire entered by William Gonzales. I have reviewed and concur with the information entered by William Gonzales. This document represents the service I personally performed and the decisions made by , Nirmala Tripathi ARNP. History of Present Illness Service Date and Time: 02/06/2023913 Previous diagnosis: Mild, Obstructive Sleep Apnea-Hypopnea Syndrome AHI: 5.2 (in 2016) Reason for follow up: first compliance after device update Equipment type: CPAP (RESMED Airsense 11) Equipment obtained from: [employer] (getting supplies as needed) Mask style: Nasal (over the nose) Backup mask available: No (will keep old mask when replaced) Last cushion change: 2 weeks Prior sleep studies: Yes Year and Where: [address] [place] [address] Sleep Type of Sleep Study: Home sleep study HPI additional information: BRAYAN KIM was diagnosed to have mild, AHI 5.2, obstructive sleep apnea- hypopnea syndrome and returned today for CPAP therapy first compliance after updating device follow-up. Sleep Study - Results Type of Sleep Study: Home sleep study Prior sleep studies: Yes Year and Where: [address] [place] [address] Sleep CPAP Compliance Data - Data Reviewed with Patient Average duration of nightly device use: 8 hours 8 minutes Compliance rate %: 90 (70/70 days used) Current pressure setting (cmH2O): 5-10 Average residual AHI: 0.8 Central apnea: 0.2 Obstructive apnea: 0.5 Average large leak: 1.7 L/min Subjective Patient concerns: denies: aerophagia, mask discomfort, air blowing in eyes, mask leak noise, condensation in mask/hose, nasal congestion, dry mouth, nose, throat, epistaxis Observed to snore while using device: No (only if on his back) Current pressure setting perceived as: comfortable On therapy, patient: reports: sleeping better, awakening more refreshed, being more awake and alert during the day, more rested overall. denies: drowsiness while driving Initial [place] Sleepiness Scale score: 9 (in 2017) Current [place] Sleepiness Scale score: 7 Allergies and Home Medications Known drug allergies: No Drug allergies reviewed: Yes Home medication list reviewed: Yes (Metformin) Allergy and home medication list: Allergies No Known Drug Allergies Allergy Review of Systems Review of systems same as previous: No (prediabetes) Physical Exam Vital signs obtained and entered by: Nirmala Villegas NP Blood Pressure: 116/72 Cuff size: wrist (right) Heart Rate: 77 O2 Saturation: 92 Height: 5 ft 9 in Weight: 158 lb 3.2 oz Body Mass Index: 23.3 BMI Classification: Normal Impression and Plan 1. Obstructive Sleep Apnea-Hypopnea Syndrome, mild, with good treatment compliance and good apnea control. On CPAP therapy, the patient has better sleep quality and is more rested overall. Patient likes his new machine but would like an SD card because it did not come with it. I will add this to his updated prescription for the DME. Patient has significant improvement of their sleep apnea and is satisfied with current CPAP therapy. Patient denies problems with oral dryness, nasal congestion, epistaxis, skin irritation or aerophagia. Patient's apnea severity and rationale for treatment to reduce apnea, improve sleep quality and reduce cardiovascular and cerebrovascular events was reviewed. I also reviewed the benefit of consistent device use of CPAP for cardiac disease and gastric reflux. Patient states he has been having trouble with his sleep schedule. He cannot get to sleep until 1 to 2:00 in the morning and then will sleep to 10:00 or later. He does not like sleeping this late. He states he knows it is due to the nicotine gum he is using daily. He is contemplating how to cut back or eliminate this so his sleep can improve. I advised him this would be very helpful overall. He voiced understanding. * Continue auto CPAP pressure at 5-10 cmH2O * Notify me if snoring with mask or feeling that the pressure is too much or too little * Call this office if any problems using CPAP * Return for follow up in 1 year, or sooner if concerns arise Counseling Topics: Spare mask Visit Type: In Office Time Spent with Patient (minutes): 20 Provider Statement: I spent 100% of the Face to Face Visit with the patient with greater than 50% spent counseling the patient and coordination of care.
[2023-02-06 09:56] VITALS: BP 116/72
== END 2023-02-06 09:15 | disposition home or self-care (01) ==
LOC: SC 09:14
PROVIDERS: ATTEND Nurse Practitioner Family
DX: G47.33 Obstructive sleep apnea (adult) (pediatric) (principal)
CPT/HCPCS: 99213; G0463; 99212

== ENCOUNTER 2023-03-20 09:15 | Outpatient (CLI) | payer MEDICARE, OTHER ==
[2023-03-20 12:51] LABS: ALBUMIN 4.2 g/dL (3.2-5.5); ALBUMIN/GLOBULIN RATIO 1.4 (1.0-2.2); ALKALINE PHOSPHATASE 85 IU/L (42-121); ALT ALANINE AMINOTRANSFERASE 13 IU/L (10-60); AST ASPARTATE AMINOTRANSFERASE 15 IU/L (10-42); BILIRUBIN,TOTAL 0.5 mg/dL (0.2-1.0); BUN - BLOOD UREA NITROGEN 23 mg/dL (6-20); CALCIUM 9.8 mg/dL (8.5-10.3); CARBON DIOXIDE - CO2 26 mmol/L (21-32); CHLORIDE 108 mmol/L (101-111); CHOL/HDL RATIO 3.3 (<5.0); CHOLESTEROL 147 mg/dL; GFR - MDRD 73 (>89); GLUCOSE 145 mg/dL (74-104); HDL CHOLESTEROL 44 mg/dL; LDL CHOLESTEROL,CALCULATED 68 mg/dL; LDL/HDL RATIO 1.5 (<3.6); POTASSIUM 4.5 mmol/L (3.5-4.5); SODIUM 140 mmol/L (135-145); TOTAL PROTEIN 7.1 g/dL (6.4-8.9); TRIGLYCERIDES 175 mg/dL (48-352); VLDL CHOLESTEROL 35 mg/dL
== END 2023-03-20 09:16 | disposition home or self-care (01) ==
LOC: LAB.N 09:15
PROVIDERS: ATTEND Nurse Practitioner Family
DX: R73.03 Prediabetes (principal); E66.3 Overweight
CPT/HCPCS: 36415; 80053; 80061; 83721

== ENCOUNTER 2023-08-08 08:39 | Outpatient (CLI) | payer MEDICARE, OTHER ==
--- NOTE | 2023-08-08 11:20 | XRAY Report ---
PROCEDURE: Shoulder 3 View RT INDICATIONS: RIGHT SHOULDER PAIN TECHNIQUE: 3 views of the shoulder were acquired. COMPARISON: None. FINDINGS: Bones: No fractures or dislocations. No suspicious bony lesions. Severe glenohumeral joint degenera tion and moderate acromioclavicular joint degeneration. Visualized ribs appear intact. Soft tissues: Calcific density over the humeral head suspicious for rotator cuff calcific tendinitis or intra-articular body in the superior glenohumeral joint. The visualized lungs are within normal limits. IMPRESSION: 1. Severe osteoarthritis. 2. Rotator cuff cuff calcific tendinitis versus intra-articular body in the superior glenohumeral julia nt. Reviewed by: Mayra Cervantes MD on 08/08/2023 11:18 AM PST Approved by: Mayra Cervantes MD on 08/08/2023 11:18 AM PST Station ID: [id number]
== END 2023-08-08 08:40 | disposition home or self-care (01) ==
LOC: DI.N 08:39
PROVIDERS: ATTEND Nurse Practitioner Family
DX: M19.011 Primary osteoarthritis, right shoulder (principal)

== ENCOUNTER 2024-01-29 10:27 | Outpatient (CLI) | payer MEDICARE, OTHER ==
[2024-01-29 12:14] LABS: BUN - BLOOD UREA NITROGEN 17 mg/dL (6-20); CALCIUM 9.5 mg/dL (8.5-10.3); CARBON DIOXIDE - CO2 25 mmol/L (21-32); CHLORIDE 108 mmol/L (101-111); CHOL/HDL RATIO 3.2 (<5.0); CHOLESTEROL 123 mg/dL; GFR - MDRD 73 (>89); GLUCOSE 147 mg/dL (74-104); HDL CHOLESTEROL 38 mg/dL; LDL CHOLESTEROL,CALCULATED 43 mg/dL; LDL/HDL RATIO 1.1 (<3.6); POTASSIUM 4.3 mmol/L (3.5-4.5); SODIUM 139 mmol/L (135-145); TRIGLYCERIDES 210 mg/dL (48-352); VLDL CHOLESTEROL 42 mg/dL
[2024-01-29 12:31] LABS: ESTIMATED AVERAGE GLUCOSE 146 mg/dL (70-100); HEMOGLOBIN A1c% 6.7 % (4.27-6.07)
== END 2024-01-29 10:28 | disposition home or self-care (01) ==
LOC: LAB.N 10:27
PROVIDERS: ATTEND Nurse Practitioner Family
DX: R73.03 Prediabetes (principal); Z13.220 Encounter for screening for lipoid disorders
CPT/HCPCS: 36415; 80048; 80061; 83036; 83721

== ENCOUNTER 2024-02-17 15:13 | Outpatient (CLI) | payer MEDICARE, OTHER ==
--- NOTE | 2024-02-17 16:11 | Sleep Patient Instructions ---
Sleep Center Visit Summary - Patient Visit Information Reason for Visit: Annual follow-up - Patient Instructions Additional Instructions: You will continue with CPAP therapy with pressure set at 5-10 cmH2O. A supply prescription will be updated with your DME. We encourage you to continue to try to lose weight. Please follow up with the sleep care office in 1 year. - Clinic Information Contact: [facility] [address] [place] [address] [email or web address] T: [phone]
--- NOTE | 2024-02-17 16:13 | SLEEP CARE CONSULTATION ---
Information from patient questionnaire entered by Dena Paredes. I have reviewed and concur with the information entered by Dena Paredes. This document represents the service I personally performed and the decisions made by , Daniela Trpiathi ARNP. History of Present Illness Service Date and Time: 02/17/2024 1513 Previous diagnosis: Mild, Obstructive Sleep Apnea-Hypopnea Syndrome AHI: 5.2 (in 2015) Reason for follow up: annual (LAST SEEN 01/2023) Equipment type: CPAP (RESMED Airsense 11, s/u 07/24/2019) Equipment obtained from: [employer] (getting supplies as needed) Mask style: Nasal (over the nose) Mask brand: Resmed Backup mask available: No Last cushion change: 23 of January Prior sleep studies: Yes Year and Where: [address] [place] [address] Sleep Type of Sleep Study: Home sleep study HPI additional information: BRAYAN KIM was diagnosed to have mild, AHI 5.2, obstructive sleep apnea- hypopnea syndrome and returned today for CPAP therapy annual follow-up. Sleep Study - Results Type of Sleep Study: Home sleep study Prior sleep studies: Yes Year and Where: [address] [place] [address] Sleep CPAP Compliance Data - Data Reviewed with Patient Average duration of nightly device use: 7 HRS 37 MINS Compliance rate %: 87 (02/13/23-02/12/24; 365/365 days used) Current pressure setting (cmH2O): 5-10 Average residual AHI: 1.0 Central apnea: 0.3 Obstructive apnea: 0.5 Average large leak: 2.5 L/min Subjective Patient concerns: reports: mask leak noise. denies: aerophagia, mask discomfort, air blowing in eyes, condensation in mask/hose, nasal congestion, dry mouth, nose, throat, epistaxis Observed to snore while using device: Yes (occasionally) Current pressure setting perceived as: comfortable On therapy, patient: reports: sleeping better, awakening more refreshed, being more awake and alert during the day, more rested overall. denies: drowsiness while driving Initial [place] Sleepiness Scale score: 9 (in 2017) Current [place] Sleepiness Scale score: 9 Allergies and Home Medications Known drug allergies: No Drug allergies reviewed: Yes Home medication list reviewed: Yes (Metformin) Allergy and home medication list: Allergies No Known Drug Allergies Allergy (Verified 02/13/24 11:14) Home Medications Medication Instructions Recorded Confirmed Last Taken Type Citalopram [CeleXA] 40 mg PO DAILY 05/17/18 02/17/24 01/24/21 History Omeprazole [PriLOSEC] 20 mg PO DAILY 05/17/18 02/17/24 01/24/21 History traZODone [Desyrel] 100 mg PO DAILY PM 05/17/18 02/17/24 01/24/21 History Multivitamin [Theragran] 1 tab PO DAILY 05/18/18 02/17/24 01/24/21 History metFORMIN See Rx Instructions .ROUTE .COMPLEX 02/17/24 02/17/24 Unknown History Review of Systems Review of systems same as previous: No (Type 2 diabetes) Physical Exam Vital signs obtained and entered by: DANIELA SEEP-Kush Blood Pressure: 129/87 Cuff size: regular (left arm) Heart Rate: 79 O2 Saturation: 96 Height: 5 ft 9 in Weight: 189 lb 6.4 oz Body Mass Index: 27.9 BMI Classification: Overweight Impression and Plan 1. Obstructive Sleep Apnea-Hypopnea Syndrome, mild, with good treatment compliance and good apnea control. On CPAP therapy, the patient has better sleep quality and is more rested overall. Patient was recently diagnosed with type 2 diabetes. He says he is lost 9 pounds since starting the metformin about 2 weeks ago. Patient has significant improvement of their sleep apnea and is satisfied with current CPAP therapy. Patient denies problems with oral dryness, nasal congestion, epistaxis, skin irritation or aerophagia. Patient's apnea severity and rationale for treatment to reduce apnea, improve sleep quality and reduce cardiovascular and cerebrovascular events was reviewed. I also reviewed the benefit of consistent device use of CPAP for gastric reflux and newly diagnosed diabetes. 2. Overweight, unspecified. Currently patients BMI is 27.9. Obesity increases the risk of apnea, CPAP pressure requirements and overall health risks especially cardiovascular and diabetes. Thus patient is advised to lose weight. * Continue auto CPAP pressure at 5-10 cmH2O * Update supply prescription * Notify me if snoring with mask or feeling that the pressure is too much or too little * Attempt to lose weight * Call this office if any problems using CPAP * Return for follow up in 12 months, or sooner if concerns arise Counseling Topics: Spare mask, Weight loss health impact Prescriptions: Device supplies Follow up with Sleep Care in: 1 year Visit Type: In Office Time Spent with Patient (minutes): 20 Provider Statement: I spent 100% of the Face to Face Visit with the patient with greater than 50% spent counseling the patient and coordination of care.
[2024-02-17 16:30] VITALS: BP 129/87; O2SAT 96
== END 2024-02-17 15:14 | disposition home or self-care (01) ==
LOC: SC 15:13
PROVIDERS: ATTEND Nurse Practitioner Family
DX: G47.33 Obstructive sleep apnea (adult) (pediatric) (principal); E66.3 Overweight; Z68.27 Body mass index [BMI] 27.0-27.9, adult
CPT/HCPCS: 99213; G0463; 99212